=== PATIENT | female | born 1935 | race Caucasian/White ===

== ENCOUNTER 2022-02-03 11:39 | Outpatient (CLI) | payer MEDICARE, SELFPAY ==
[2022-02-03 12:13] LABS: Basophils Percent Auto 0.5 % (0.2-1.2); Eosinophils Absolute Auto 0.1 K/mm3 (0-0.3); Eosinophils Percent Auto 0.7 % (0-4.4); Hematocrit 42.8 % (37.0-47.0); Hemoglobin 13.3 g/dL (12.0-15.0); Immature Granulocyte Absolute 0.02 K/mm3 (0.00-0.031); Immature Granulocyte Percent A 0.2 % (0-0.5); Immature Platelet Fraction Pct 4.3 % (0.9-11.2); Lymphocytes Absolute Auto 1.59 K/mm3 (0.9-3.2); Lymphocytes Percent Auto 19.3 % (18.3-44.2); Mean Corpuscular HGB Conc 31.1 g/dl (32-36); Mean Corpuscular Hemoglobin 30.9 pg (26-34); Mean Corpuscular Volume 99.5 fl (80-100); Monocytes Absolute Auto 0.8 K/mm3 (0.1-0.6); Monocytes Percent Auto 9.6 % (2.6-8.5); Neutrophils Absolute Auto 5.8 K/mm3 (1.3-6.7); Neutrophils Percent Auto 69.7 % (45.5-73.1); Platelet Count Result 230 k/mm3 (150-375); Red Cell Distribution Width 14.6 % (11.5-14.5); White Blood Count 8.3 K/mm3 (4.5-10.0)
[2022-02-03 12:20] LABS: Alanine Aminotransferase 14 U/L (4-35); Albumin Level 4.3 g/dL (3.5-5.1); Alkaline Phosphatase 61 U/L (38-126); Anion Gap 8 mmol/L (8-16); Aspartate Amino Transferase 26 U/L (14-36); Bilirubin,Total 0.6 mg/dL (0.2-1.3); Blood Urea Nitrogen 25 mg/dL (7-17); Calcium 8.8 mg/dL (8.4-10.2); Carbon Dioxide 23 mmol/L (22-30); Chloride 108 mmol/L (98-107); Estimated Glomerular Filt Rate 59; Glucose 98 mg/dL (65-110); Potassium 4.3 mmol/L (3.4-5.0); Sodium 139 mmol/L (137-145)
== END 2022-02-03 11:40 | disposition home or self-care (01) ==
PROVIDERS: Visit Provider Family Medicine
DX: E53.8 Deficiency of other specified B group vitamins (principal); F41.1 Generalized anxiety disorder
CPT/HCPCS: 36415; 80053; 82607; 85025; 85055

== ENCOUNTER 2022-09-19 14:32 | Inpatient (IN) | payer MEDICARE, SELFPAY ==
[2022-09-19] VITALS (7 sets, daily range): BP systolic 109–148; BP diastolic 60–91; PULSE 94–157; RESP 14–20; TEMP 36.3–36.6; O2SAT 97–100; BMI 40.8
--- NOTE | ~2022-09-19 | XR_ITS ---
EXAMINATION: XR chest 1V portable Exam Date/Time: 09/19/2022 15:05 POWER WASHER HISTORY: cough, AMS, dementia, GROUND LEVEL FALL Comparison: 03/09/2019. RESULT: Lines, tubes, and devices: Left chest pacer with intact lead. Lower thoracic vertebroplasty cement. Surgical clips over the bilateral axilla. Lungs and pleura: Ill-defined patchy and streaky bibasilar opacities. Cardiomediastinal silhouette: Stable. Other: No acute osseous or upper abdominal finding. IMPRESSION: Bibasilar opacities, presumably representing atelectasis. Infection and/or aspiration are not exclude d. Reviewed, dictated and finalized at location K. R WASHER IMPRESSION: Bibasilar opacities, presumably representing atelectasis. Infection and/or aspi ration are not excluded.
--- NOTE | ~2022-09-19 | CT_ITS ---
EXAMINATION: CTA chest PE protocol DATE: 09/19/2022 18:17 INDICATION: covid+, tachycardia TECHNIQUE: Computed tomography angiography (CTA) of the chest was performed with 200 mL Omnipaque-350 intravenous contrast timed to evaluate the pulmonary arteries. Coronal maximum intensity projection 3D-reconstructions were created by the technologist. The dose-length product (DLP) was 877.17 mGy-cm. Automated exposure control and iterative reconstruction technique were employed. COMPARISON: X-ray chest, same date. CT C-spine, same date. FINDINGS: Lung parenchyma and airways: Senescent changes. Dependent atelectasis.. Pleura: Unremarkable. Thoracic inlet, axillae and chest wall: 2.3 cm left thyroid nodule. Left chest pacer, with intact thelma d Thoracic aorta: Mild ectasia and arch calcification. Mediastinum: Small hiatal hernia. Heart and pericardium: Normal. Coronary artery calcifications: Moderate. Upper abdomen: Multiple bilateral renal cysts and lesions that are too small to characterize. Bones: No acute osseous finding. Pulmonary arteries: Study quality: Degraded by arm positioning in one series of imaging and respirato ry motion in all series, such that subsegmental and non-occlusive segmental emboli could be missed. N o pulmonary emboli detected. IMPRESSION: Limited examination as detailed above. No CT evidence of central or segmental acute pulmonary embolus . Reviewed, dictated and finalized at location K. ONHOLE MAKER HAND IMPRESSION: Limited examination as detailed above. No CT evidence of central or segmental a cute pulmonary embolus.
--- NOTE | ~2022-09-19 | XR_ITS ---
MODIFIED ESOPHAGRAM HISTORY: Aspiration TECHNIQUE: Modified barium esophagram was performed by speech pathologist under radiologist fluorosco pic guidance. This was recorded on tape. The exam was reviewed on 09/20/2022 13:33 SAUSAGE MACHINE OPERATOR. The DAP for this procedure was 1.6 Gycm2. Fluoroscopy time is 2.4 minutes. FINDINGS: Lateral projection of the cervical spine demonstrates prominent ventral osteophytes at C5 -6 and C6-7.. There is reduced lingual movement. During pharyngeal stage of swallowing there is reduc ed laryngeal elevation, laryngeal adduction, tongue base retraction and pharyngeal squeeze. There is vallecular residue, pyriform sinus residue. There is laryngeal penetration with aspiration.. IMPRESSION: 1: Laryngeal penetration with aspiration. 2: Please refer to speech pathologist report for additional detail. Reviewed, dictated and finalized at location A. AGE MACHINE OPERATOR
--- NOTE | ~2022-09-19 | CT_ITS ---
EXAMINATION: CT cervical spine wo con DATE: 09/19/2022 15:41 INDICATION: fall, HI, dementia TECHNIQUE: Computed tomography (CT) of the cervical spine was performed without intravenous contrast. Automated exposure control and iterative reconstruction technique were employed. The dose-length pro duct was 171.79 mGy-cm. COMPARISON: None. FINDINGS: Vertebral Body Alignment: Intact. . Craniocervical and atlantoaxial alignment: Moderate degenerative change with pannus. Alignment intact . Osseous structures/fracture: No evidence of a lytic or blastic process in the visualized spine. No e vidence of acute fracture. . Cervical soft tissues: The paraspinal soft tissues planes are maintained. Biapical pleural scarring i n the lungs. 2.3 cm left thyroid gland nodule. Degenerative changes: Multilevel severe degenerative disc disease. Multilevel severe facet arthropath y. Multilevel severe bilateral neural foraminal narrowing. No severe central canal narrowing. IMPRESSION: No acute fracture or traumatic malalignment in the cervical spine. 2.3 cm left thyroid gland nodule, consider outpatient, nonemergent thyroid ultrasound for further evaluation. Reviewed, dictated and finalized at location K. BOSS IMPRESSION: No acute fracture or traumatic malalignment in the cervical spine. 2.3 cm left thyroid gland nodule, consider outpatient, nonemergent thyroid ultrasound for f urther evaluation.
--- NOTE | ~2022-09-19 | CT_ITS ---
EXAMINATION: CT brain wo con DATE: 09/19/2022 15:41 INDICATION: fall, HI, dementia . TECHNIQUE: Computed tomography (CT) of the head was performed without intravenous contrast. The mA wa s adjusted according to patient size. Iterative reconstruction technique was employed. The dose-lengt h product was 1059.33 mGy-cm. COMPARISON: None FINDINGS: Motion limited examination. No acute intracranial hemorrhage or extra-axial fluid collection. No hydrocephalus, mass, or herniation. No acute ischemic infarct. Unremarkable dural venous sinus attenuation. No acute osseous abnormality. Nodular mucosal thickening in the bilateral maxillary sinuses aerated spaces are clear. Moderate atrophy and chronic white matter change. Atherosclerotic intracranial calcification. Bilater al lens replacements. IMPRESSION: Motion limited examination. Within that constraint, no definite acute intracranial process. Reviewed, dictated and finalized at location K. NICAL ACCOUNT REPRESENTATIVE IMPRESSION: Motion limited examination. Within that constraint, no definite acute intracran ial process.
--- NOTE | 2022-09-19 14:51 | ECG_ITS ---
Measurements Intervals [place] Rate: 129 P: 34 MN: 193 QRS: -11 QRSD: 86 T: 68 QT: 367 QTc: 539 Interpretive Statements SINUS TACHYCARDIA ST DEVIATION AND MODERATE T-WAVE ABNORMALITY, CONSIDER LATERAL ISCHEMIA [-0.1+ mV T WAVE IN I/aVL/V5/V6] COMPARED TO ECG 03/09/2019 19:03:16 SINUS TACHYCARDIA NOW PRESENT Electronically Signed On 09-20-2022 11:11:25 LUNCHROOM MONITOR by Luis Antonio Vick M.D.
--- NOTE | 2022-09-19 15:04 | ED.FALL ---
HPI - Fall General Chief Complaint: Fall Stated Complaint: fell, confused (has history of dementia) Time Seen by Provider: 09/19/22 14:45 Source: patient and family Mode of arrival: ambulatory Limitations: no limitations History of Present Illness HPI Narrative: Patient is an 87 y/o female who presents to the ED with c/o altered mental status. Patient and son at bedside assisted in providing information. Son reports patient has a history of dementia and is alert and oriented X 1-2 at baseline. He states her confusion has been worsening over the last 1 week. Today, he heard a thud from another room and found the patient on the ground, appearing to have fallen. Patient denies any areas of pain. She is unable to tell me how the fall occurred. Patient is not on any blood thinners. Related Data Allergies Allergy/AdvReac Type Severity Reaction Status Date / Time No Known Allergies Allergy Unverified 03/09/19 19:08 Review of Systems Review of Systems: ROS unobtainable: Yes unobtainable due to mental status PMFSH Past Medical History Medical History (Updated 09/19/22 @ 20:07 by Chante Sethi PA-C) Anxiety Dementia Depression HLD (hyperlipidemia) HTN (hypertension) Pacemaker Surgical History Surgical History (Updated 09/19/22 @ 15:08 by Chante Sethi PA-C) No pertinent past surgical history Social History Social History (Updated 09/19/22 @ 15:08 by Chante Sethi PA-C) Smoking status: Never smoker Living arrangements: with family Exam Narrative: GENERAL: Elderly, well-nourished, non-toxic, in no acute distress. HEAD: Normocephalic, atraumatic. NECK: Supple. No adenopathy, no masses. RESPIRATORY: Airway patent, respirations nonlabored. Clear to auscultation bilaterally, no rales, rhonchi, wheezing. Occasional cough on exam. CARDIOVASCULAR: Tachycardic with regular rhythm without murmurs, rubs, or gallops. Radial pulses 2+ and equal bilaterally. ABDOMINAL: Soft, nontender, nondistended, no hepatosplenomegaly. Normoactive BS. MUSCULOSKELETAL: Moves all extremities. Strength/ROM intact without gross deformities. SKIN: Warm, dry, normal color. No rashes. NEURO: A&O X1, unsure of location/year. Confused at some questions. Follows some commands. Speech clear. Cranial nerves II-XII grossly intact. No ataxic movements. No focal deficits. PSYCHIATRIC: Appropriate mood and affect. Normal interaction. Course Vital Signs Vital signs: Vital Signs Temperature 97.3 F L 09/19/22 14:36 Pulse Rate 94 09/19/22 14:36 Respiratory Rate 14 09/19/22 14:36 Blood Pressure 148/91 H 09/19/22 14:36 Pulse Oximetry 100 09/19/22 14:36 Temperature 97.3 F L 09/19/22 14:36 Pulse Rate 147 H 09/19/22 18:47 Respiratory Rate 15 09/19/22 18:47 Blood Pressure 133/89 09/19/22 18:47 Pulse Oximetry 98 09/19/22 18:47 MDM - Fall MDM Narrative Medical decision making narrative: Patient presented to ED with report of a fall today, increased confusion over the last week for patient's son. Patient alert and oriented to self currently. Heart rate initially documented as 94 upon arrival, though upon my evaluation, patient's heart rate ranging from 110-140s. Patient unable to tell me how fall occurred, denying any acute complaints. CT head and neck negative. CBC without leukocytosis or anemia. CMP with mild hyponatremia, stable kidney function. Lactic acid within normal limits. Blood cultures obtained. COVID testing positive in the ED. EKG showing sinus tachycardia, nonspecific ST changes. Initial troponin 0.022. Chest x-ray showing nonspecific bibasilar opacities. Lungs clear on exam. Patient persistently tachycardic in the 140s throughout ED stay despite 2L fluid resuscitation. D-dimer was found to be elevated at 2.68. CTA of chest obtained and somewhat limited by motion, no central or large PEs seen. Due to persistent tachycardia in the setting of COVID-19 and worsening dementia,
[2022-09-19 15:06] LABS: Basophils Percent Auto 0.2 % (0.2-1.2); Hematocrit 41.2 % (37.0-47.0); Immature Granulocyte Absolute 0.03 K/mm3 (0.00-0.031); Immature Granulocyte Percent A 0.3 % (0-0.5); Lymphocytes Absolute Auto 1.12 K/mm3 (0.9-3.2); Mean Corpuscular HGB Conc 31.6 g/dl (32-36); Mean Corpuscular Volume 98.1 fl (80-100); Mean Platelet Volume 10.6 fl (7.4-10.4); Monocytes Percent Auto 10.5 % (2.6-8.5); Neutrophils Absolute Auto 7.2 K/mm3 (1.3-6.7); Platelet Count Result 183 k/mm3 (150-375); White Blood Count 9.4 K/mm3 (4.5-10.0)
[2022-09-19 15:19] LABS: INR 1.2; Prothrombin Time 14.8 Seconds (11.1-14.7)
[2022-09-19 15:20] LABS: Partial Thromboplastin Time 31.6 SECONDS (22.3-36.8)
[2022-09-19 15:22] LABS: Lactic Acid Reflex 1.2 mmol/L (0.7-2.0)
[2022-09-19] MEDS: SODIUM CHLORIDE 0.9% IV 1,000 ML 999 ML IV CONT ×2 (15:34→18:48)
[2022-09-19 15:44] LABS: Influenza A QL RT-PCR Negative (Negative); Influenza B QL RT-PCR Negative (Negative); SARS-CoV-2 RNA PCR Positive
[2022-09-19 15:58] LABS: Alanine Aminotransferase 16 U/L (6-35); Albumin Level 4.2 g/dL (3.5-5.1); Alkaline Phosphatase 57 U/L (38-126); Anion Gap 7 mmol/L (8-16); Aspartate Amino Transferase 28 U/L (14-36); Bilirubin,Total 0.5 mg/dL (0.2-1.3); Blood Urea Nitrogen 24 mg/dL (7-17); Calcium 8.6 mg/dL (8.4-10.2); Carbon Dioxide 26 mmol/L (22-30); Chloride 100 mmol/L (98-107); Estimated CRCL calculation 38 ml/min; Estimated Glomerular Filt Rate > 60; Glucose 105 mg/dL (65-110); Potassium 3.9 mmol/L (3.4-5.0); Sodium 133 mmol/L (137-145)
[2022-09-19 16:00] LABS: Troponin I 0.022 ng/mL (0.000-0.034)
--- NOTE | 2022-09-19 16:30 | PC.NURSE ---
Attempted to straight cath patient at this time without success due to patient condition and anatomy. U-Bag placed to obtain urine sample at this time.
[2022-09-19 17:36] LABS: D Dimer 2.68 ug/mL (<0.48)
[2022-09-19 20:11] LABS: Appearance Urine Clear (Clear); Bilirubin Urine Negative (Negative); Blood Urine 2+ (Negative); Color Urine Yellow (Yellow); Glucose Urine UA Negative (Negative); Ketones Urine Negative (Negative); Leukocyte Esterase Ur Negative LEU/UL (Negative); Nitrate Urine Negative (Negative); Protein Urine Negative (Negative); Specific Grav Ur <= 1.005 (1.001-1.035); Urobilinogen Urine 0.2 mg/dL (<2.0)
--- NOTE | 2022-09-19 20:14 | PM.IMHP ---
H&P: HPI History of Present Illness Date/Time: 09/19/22 20:14 Chief Complaint: FALL Narrative: This is an 87-year-old female past medical history significant for anxiety, dementia, depression, dyslipidemia, hypertension, status post remote history of pacemaker placement, bilateral mastectomy. patient was brought to the emergency room due to fall son was at home and heard the known found her lying on the floor however patient had no loss of consciousness. Patient is unable to give me much history due to circumstantiality. preliminary workup was significant for patient tested positive for COVID A chest x-ray showed infiltrate. Patient is been admitted for further evaluation management and treatment. Review of Systems Review of Systems: ROS unobtainable: Yes unobtainable due to medical condition ( Dementia) PMFSH Past Medical History Medical History (Updated 09/20/22 @ 02:50 by Natalie Juárez MD) Anxiety Dementia Depression HLD (hyperlipidemia) HTN (hypertension) Pacemaker Surgical History Surgical History (Updated 09/19/22 @ 15:08 by Chante Sethi PA-C) No pertinent past surgical history Social History Social History (Updated 09/19/22 @ 15:08 by Chante Sethi PA-C) Smoking status: Never smoker Alcohol intake: never Substance use: never Substance use type: does not use Living arrangements: with family Spiritual care concerns: No Meds Home Medications and Allergies Home Medications Medication Instructions Recorded Confirmed Type alprazolam 0.5 mg tablet 0.5 mg PO TID PRN Anxiety 09/19/22 09/19/22 History aspirin 81 mg tablet,delayed 81 mg PO DAILY 09/19/22 09/19/22 History release buspirone 15 mg tablet 15 mg PO DAILY 09/19/22 09/19/22 History lovastatin 20 mg tablet 20 mg PO HS 09/19/22 09/19/22 History sertraline 50 mg tablet 50 mg PO DAILY 09/19/22 09/19/22 History tizanidine 2 mg tablet 2 mg PO HS 09/19/22 09/19/22 History Allergies Allergy/AdvReac Type Severity Reaction Status Date / Time No Known Allergies Allergy Unverified 09/19/22 21:02 Vital Signs Vital Signs - 24 hr 09/19/22 14:36 09/19/22 16:23 09/19/22 18:47 Temperature 97.3 F L Pulse Rate 94 141 H 147 H Respiratory Rate 14 20 15 Blood Pressure 148/91 H 140/84 133/89 Pulse Oximetry 100 98 98 Exam Narrative: patient is laying in bed Const: General: comfortable, no acute distress, well developed, alert, awake and average body habitus Nutritional Appearance: average body habitus Orientation/consciousness: oriented to person and oriented to place HENMT: Head: normal to inspection, normocephalic and atraumatic Ears: hearing grossly normal bilaterally Face/Nose/Sinus: normal facial exam Face and sinus: normal facial exam Eyes: General: appearance normal, both eyes and all related structures Pupils: Equal, round and reactive pupils present EOM: EOMs intact bilaterally Neck: Neck: full ROM, no lymphadenopathy and no JVD Thyroid: thyroid normal Lymphatic: no lymphadenopathy noted Chest: Breast/axilla inspection: abnormal inspection of the breast ( bilateral mastectomy) Resp: Effort & Inspection: normal respiratory effort and able to speak in complete sentences Auscultation: clear to auscultation bilaterally Cardio: Jugular venous distension: no JVD Rate: regular rate Rhythm: regular rhythm Heart sounds: S1 normal heart sound present and S2 normal heart sound present GI: GI Palp: Yes Soft to palpation and Yes No hepatosplenomegaly present : General: Yes deferred Skin: Rashes: no rashes Wounds: no wounds Neuro: General: oriented to person, oriented to place and CN's II-XI intact bilaterally Cranial nerves: Yes CN's II-XII intact bilaterally and Yes Equal, round and reactive pupils present Cognition (Neuro): normal cognition Speech: normal speech Gait exam (Neuro): Normal gait present Motor exam (neuro): 5/5 motor strength present throughout Extrem: General
[2022-09-19 20:15] LABS: Mucus Urine Rare /lpf; Squamous Epithelial Cell Urine Occasional /hpf (Few); WBC Urine 0-3 /hpf
[2022-09-19 20:19] LABS: Add Urine Microscopic? YES
--- NOTE | 2022-09-19 20:28 | PC.NURSE ---
Patient assisted to bedside commode. Patient pacemaker interrogated.
--- NOTE | 2022-09-19 21:00 | PC.NURSE ---
called Ed for report on pt, report received from Monica
--- NOTE | 2022-09-19 22:30 | PC.NURSE ---
called to inform MD Juárez hr 140's and remains restless and anxious. Impulsive.
[2022-09-19] MEDS: HALOPERIDOL LACTATE 5 MG/ML VIAL IM (22:50)
--- NOTE | 2022-09-19 23:30 | PC.NURSE ---
hr 140-150's called MD Juárez 25 mg PO metoprolol once ordered.
[2022-09-20] VITALS (12 sets, daily range): BP systolic 108–147; BP diastolic 64–96; PULSE 86–129; RESP 18–20; TEMP 36.4–36.6; O2SAT 92–98
[2022-09-20] MEDS: METOPROLOL TARTRATE 25 MG TABLET PO ×3 (00:07→18:01)
[2022-09-20] MEDS: LOVASTATIN 20 MG TABLET PO ×2 (00:51→20:56)
[2022-09-20] MEDS: TIZANIDINE HCL 2 MG TABLET PO ×2 (00:51→20:56)
[2022-09-20] MEDS: cefTRIAXone 2 GM in SODIUM CHLORIDE 0.9% IV 100 ML 200 ML IVPB (03:31)
[2022-09-20] MEDS: ALPRAZolam (*CRX) 0.5 MG TABLET PO ×2 (06:50→20:56)
--- NOTE | 2022-09-20 08:00 | PM.IMPN ---
Progress Note: A&P Assessment and Plan (1) Lung infiltrate: Code(s): R91.8 - Other nonspecific abnormal finding of lung field Status: Acute Assessment and Plan: Chest xray Shows bibasilar opacities representing atelectasis, infection, aspiration Chest CTA showed no PE however does showed atelectasis Azithromycin and ceftriaxone has been started WBC stable at 5.9 Sputum culture ordered Blood cultures pending Could be related to COVID-19 Trend respiratory status IS and cornet therapy ordered ST ordered since possible aspiration is noted on the xray (2) PNA (pneumonia): Code(s): J18.9 - Pneumonia, unspecified organism Status: Acute Assessment and Plan: Possible related to COVID see above (3) COVID-19: Code(s): U07.1 - COVID-19 Status: Acute Assessment and Plan: Tested positive in the ED on 09/19/22 No oxygen requirements Cough is noted, add antitussives Probable acute infection IS and cornet ordered PT/OT ordered supportive care (4) Tachycardia: Code(s): R00.0 - Tachycardia, unspecified Status: Acute Assessment and Plan: Heart rate is elevated at 120-150s Metoprolol IV given x 1 Start metoprolol 25mg PO BID Telemonitor Continue to trend heart rate Consider cardiology if unable to get heart rate controlled (5) Fall: Code(s): W19.XXXA - Unspecified fall, initial encounter Status: Acute Assessment and Plan: Fall noted at home, with no loss of conscientiousness PT/OT ordered Up with assistance Fall precautions Could be related to PNA, COVID (6) Dementia: Code(s): F03.90 - Unspecified dementia, unspecified severity, without behavioral disturbance, psychotic disturbance, mood disturbance, and anxiety Status: Acute Assessment and Plan: Baseline according to the ED from the son is A&O x 1-2 Currently A&O x 1 probably at baseline not on any current treatment Appears to be on Xanax probably for support (7) HTN (hypertension): Code(s): I10 - Essential (primary) hypertension Status: Acute Assessment and Plan: Current BP is 128/85 No home medications Stable at this time Continue to trend adjust therapy as indicated (8) HLD (hyperlipidemia): Code(s): E78.5 - Hyperlipidemia, unspecified Status: Acute Assessment and Plan: Continue home lovastatin Subjective Date/time seen: 09/20/22 08:00 Interval history: 09/20/22 0800 Patient is alert oriented x1. When asked her about her pacemaker she said she got that put in which she was 21. She currently denies any chest pain or any nausea, vomiting, diarrhea or constipation. She did say she was short of breath and that she did have a pretty bad cough. Her heart rate was noted to be in 120s to 150s throughout late morning. Will give patient 1 dose of IV metoprolol and continue Trend heart rate. Metoprolol was also ordered p.o.. Continue tele monitor at this time. 09/19/22? 20:14 ?This is an 87-year-old female past medical history significant for anxiety, dementia, depression, dyslipidemia, hypertension, status post? remote history of pacemaker placement,? bilateral mastectomy. patient was brought to the emergency room due to fall son was at home and heard the known found her lying on the floor however patient had no loss of consciousness.? Patient is unable to give me much? history due to circumstantiality. preliminary workup was significant for patient tested positive for COVID A chest x-ray showed infiltrate.? Patient is been admitted for further evaluation management and treatment. Review of Systems Review of Systems: All systems reviewed & are unremarkable except as noted in HPI and below ROS unobtainable: Yes unobtainable due to medical condition ( Dementia) Exam Isael
--- NOTE | 2022-09-20 08:00 | P.PNIM_ITS ---
Progress Note: A&P Assessment and Plan (1) Lung infiltrate: Code(s): R91.8 - Other nonspecific abnormal finding of lung field Status: Acute Assessment and Plan: * Chest xray Shows bibasilar opacities representing atelectasis, infection, aspiration * Chest CTA showed no PE however does showed atelectasis * Azithromycin and ceftriaxone has been started * WBC stable at 5.9 * Sputum culture ordered * Blood cultures pending * Could be related to COVID-19 * Trend respiratory status * IS and cornet therapy ordered * ST ordered since possible aspiration is noted on the xray (2) PNA (pneumonia): Code(s): J18.9 - Pneumonia, unspecified organism Status: Acute Assessment and Plan: * Possible related to COVID * see above (3) COVID-19: Code(s): U07.1 - COVID-19 Status: Acute Assessment and Plan: * Tested positive in the ED on 09/19/22 * No oxygen requirements * Cough is noted, add antitussives * Probable acute infection * IS and cornet ordered * PT/OT ordered * supportive care (4) Tachycardia: Code(s): R00.0 - Tachycardia, unspecified Status: Acute Assessment and Plan: * Heart rate is elevated at 120-150s * Metoprolol IV given x 1 * Start metoprolol 25mg PO BID * Telemonitor * Continue to trend heart rate * Consider cardiology if unable to get heart rate controlled (5) Fall: Code(s): W19.XXXA - Unspecified fall, initial encounter Status: Acute Assessment and Plan: * Fall noted at home, with no loss of conscientiousness * PT/OT ordered * Up with assistance * Fall precautions * Could be related to PNA, COVID (6) Dementia: Code(s): F03.90 - Unspecified dementia, unspecified severity, without behavioral disturbance, psychotic disturbance, mood disturbance, and anxiety Status: Acute Assessment and Plan: * Baseline according to the ED from the son is A&O x 1-2 * Currently A&O x 1 * probably at baseline * not on any current treatment * Appears to be on Xanax probably for support (7) HTN (hypertension): Code(s): I10 - Essential (primary) hypertension Status: Acute Assessment and Plan: * Current BP is 128/85 * No home medications * Stable at this time * Continue to trend * adjust therapy as indicated (8) HLD (hyperlipidemia): Code(s): E78.5 - Hyperlipidemia, unspecified Status: Acute Assessment and Plan: * Continue home lovastatin Subjective Date/time seen: 09/20/22 08:00 Interval history: 09/20/22 0800 Patient is alert oriented x1. When asked her about her pacemaker she said she got that put in which she was 21. She currently denies any chest pain or any nausea, vomiting, diarrhea or constipation. She did say she was short of breath and that she did have a pretty bad cough. Her heart rate was noted to be in 120s to 150s throughout late morning. Will give patient 1 dose of IV metoprolol and continue Trend heart rate. Metoprolol was also ordered p.o.. Continue tele monitor at this time. 09/19/22? 20:14 ?This is an 87-year-old female past medical history significant for anxiety, dementia, depression, dyslipidemia, hypertension, status post? remote history of pacemak
[2022-09-20 08:31] LABS: Basophils Percent Auto 0.5 % (0.2-1.2); Hematocrit 36.7 % (37.0-47.0); Hemoglobin 11.4 g/dL (12.0-15.0); Immature Granulocyte Absolute 0.01 K/mm3 (0.00-0.031); Immature Granulocyte Percent A 0.2 % (0-0.5); Lymphocytes Absolute Auto 1.22 K/mm3 (0.9-3.2); Lymphocytes Percent Auto 20.7 % (18.3-44.2); Mean Corpuscular HGB Conc 31.1 g/dl (32-36); Mean Corpuscular Hemoglobin 29.8 pg (26-34); Mean Corpuscular Volume 96.1 fl (80-100); Monocytes Absolute Auto 0.8 K/mm3 (0.1-0.6); Monocytes Percent Auto 12.9 % (2.6-8.5); Neutrophils Absolute Auto 3.9 K/mm3 (1.3-6.7); Neutrophils Percent Auto 65.7 % (45.5-73.1); Platelet Count Result 160 k/mm3 (150-375); Red Blood Count 3.82 M/mm3 (4.2-5.4); Red Cell Distribution Width 14.8 % (11.5-14.5); White Blood Count 5.9 K/mm3 (4.5-10.0)
[2022-09-20 08:49] LABS: Alanine Aminotransferase 16 U/L (6-35); Albumin Level 3.6 g/dL (3.5-5.1); Alkaline Phosphatase 44 U/L (38-126); Anion Gap 6 mmol/L (8-16); Aspartate Amino Transferase 34 U/L (14-36); Bilirubin,Total 0.4 mg/dL (0.2-1.3); Blood Urea Nitrogen 13 mg/dL (7-17); Calcium 7.8 mg/dL (8.4-10.2); Carbon Dioxide 25 mmol/L (22-30); Chloride 104 mmol/L (98-107); Estimated CRCL calculation 53 ml/min; Estimated Glomerular Filt Rate > 60; Glucose 95 mg/dL (65-110); Potassium 3.4 mmol/L (3.4-5.0); Sodium 135 mmol/L (137-145)
[2022-09-20] MEDS: ASPIRIN 81 MG ENTERIC TABLET PO (09:08)
[2022-09-20] MEDS: busPIRone HCL 5 MG TABLET 15 MG PO (09:08)
[2022-09-20] MEDS: SERTRALINE HCL 50 MG TABLET PO (09:08)
[2022-09-20] MEDS: HEPARIN SODIUM 5,000 UNITS/ML VIAL 5000 UNITS SUB-Q ×2 (09:09→20:55)
--- NOTE | 2022-09-20 11:05 | PCSTNOTE ---
Orders received for bedside swallowing evaluation. Based on chart review a modified barium swallow study is appropriate to rule out aspiration for this patient. Physician contacted and order requested.
--- NOTE | 2022-09-20 13:41 | PCSTNOTE ---
Please refer to the Modified Barium Swallow Evaluation in the EMR.
[2022-09-20] MEDS: METOPROLOL TARTRATE INJ 5 MG/5 ML VIAL 2.5 MG IV PUSH (17:10)
[2022-09-20] MEDS: guaiFENesin/DEXTROMETHORPHAN 10 ML UDC 5 ML PO (20:55)
[2022-09-21] VITALS (9 sets, daily range): BP systolic 121–159; BP diastolic 70–89; PULSE 71–129; RESP 18–20; TEMP 36.2–36.6; O2SAT 90–98
[2022-09-21] MEDS: HALOPERIDOL LACTATE 5 MG/ML VIAL IM (03:37)
[2022-09-21] MEDS: LORazepam INJ (*CRX) 2 MG/ML VIAL 1 MG IM (04:30)
--- NOTE | 2022-09-21 05:15 | PC.NURSE ---
Pt alert to self this shift. Uncooperative with all care. Multiple attempts to get out of bed. On fall precautions with bed alarm. Takes off tele.Gave xanax 0.5mg po 2100 Pt calmer with periods of sleep in bed. Continues to Removed IV site. Yelling, hitting, kicking and attempting to bite staff. Refused po meds. Notified hospitalist irrigation tax assessor collector of pt behavior. Gave haldol 5mg IM . 033 attempted to restrart IV pt continued to resist care. Received order for ativan IM 1mg. Gave to pt at 0415 Attempted to restart IV site again as of 509- pt still resists care. Pt due for 2 antibiotics scheduled for Q24 hours at 0300. Continue to monitor pt closely.
--- NOTE | 2022-09-21 06:04 | PC.NURSE ---
Attempted to start IV again - assist of 3 people. Pt combative, 3 sticks unable to get site. Notified Dr. Juárez of inability to start IV and give abx x2. Phlebotomy obtained labs with 4 assists . Tele for this shift ST ,then was SR with sedation. Remains confused, alert to self only.
[2022-09-21 06:55] LABS: Basophils Percent Auto 0.3 % (0.2-1.2); Eosinophils Absolute Auto 0.1 K/mm3 (0-0.3); Hematocrit 41.1 % (37.0-47.0); Hemoglobin 12.7 g/dL (12.0-15.0); Immature Granulocyte Absolute 0.01 K/mm3 (0.00-0.031); Immature Granulocyte Percent A 0.2 % (0-0.5); Lymphocytes Absolute Auto 1.83 K/mm3 (0.9-3.2); Lymphocytes Percent Auto 31.9 % (18.3-44.2); Mean Corpuscular HGB Conc 30.9 g/dl (32-36); Mean Corpuscular Hemoglobin 30.9 pg (26-34); Mean Platelet Volume 11.8 fl (7.4-10.4); Monocytes Absolute Auto 0.7 K/mm3 (0.1-0.6); Monocytes Percent Auto 12.7 % (2.6-8.5); Neutrophils Absolute Auto 3.1 K/mm3 (1.3-6.7); Neutrophils Percent Auto 53.9 % (45.5-73.1); Platelet Count Result 171 k/mm3 (150-375); Red Blood Count 4.11 M/mm3 (4.2-5.4); Red Cell Distribution Width 14.5 % (11.5-14.5); White Blood Count 5.7 K/mm3 (4.5-10.0)
[2022-09-21 07:47] LABS: Alanine Aminotransferase 18 U/L (6-35); Albumin Level 3.3 g/dL (3.5-5.1); Alkaline Phosphatase 39 U/L (38-126); Anion Gap 7 mmol/L (8-16); Aspartate Amino Transferase 36 U/L (14-36); Bilirubin,Total 0.4 mg/dL (0.2-1.3); Blood Urea Nitrogen 18 mg/dL (7-17); Calcium 8.2 mg/dL (8.4-10.2); Carbon Dioxide 25 mmol/L (22-30); Chloride 104 mmol/L (98-107); Estimated CRCL calculation 53 ml/min; Estimated Glomerular Filt Rate > 60; Glucose 89 mg/dL (65-110); Potassium 3.9 mmol/L (3.4-5.0); Sodium 136 mmol/L (137-145)
[2022-09-21] MEDS: busPIRone HCL 5 MG TABLET 15 MG PO (08:51)
[2022-09-21] MEDS: METOPROLOL TARTRATE 25 MG TABLET PO ×2 (08:51→17:03)
[2022-09-21] MEDS: ASPIRIN 81 MG ENTERIC TABLET PO (08:51)
[2022-09-21] MEDS: HEPARIN SODIUM 5,000 UNITS/ML VIAL 5000 UNITS SUB-Q ×2 (08:52→20:15)
[2022-09-21] MEDS: SERTRALINE HCL 50 MG TABLET PO (08:52)
--- NOTE | 2022-09-21 09:00 | P.PNIM_ITS ---
Progress Note: A&P Assessment and Plan (1) Lung infiltrate: Code(s): R91.8 - Other nonspecific abnormal finding of lung field Status: Acute Assessment and Plan: * Chest xray Shows bibasilar opacities representing atelectasis, infection, aspiration * Chest CTA showed no PE however does showed atelectasis * Azithromycin and ceftriaxone continued * WBC stable at 5.2 * Sputum culture ordered still in collected * Blood cultures no growth today * Could be related to COVID-19 * Trend respiratory status * IS and cornet therapy ordered * ST ordered since possible aspiration is noted on the xray (2) PNA (pneumonia): Code(s): J18.9 - Pneumonia, unspecified organism Status: Acute Assessment and Plan: * Possible related to COVID * see above (3) COVID-19: Code(s): U07.1 - COVID-19 Status: Acute Assessment and Plan: * Tested positive in the ED on 09/19/22 * No oxygen requirements * Cough is noted, add antitussives * Probable acute infection * IS and cornet ordered * PT/OT ordered * supportive care (4) Tachycardia: Code(s): R00.0 - Tachycardia, unspecified Status: Acute Assessment and Plan: Heart rate noted to be elevated at 120-150s at time of admission * Heart rate better controlled in the 80s today * Increase metoprolol 25mg PO TID * Telemonitor is stable will discontinue at this time * Continue to trend heart rate * Consider cardiology if unable to get heart rate controlled (5) Fall: Code(s): W19.XXXA - Unspecified fall, initial encounter Status: Acute Assessment and Plan: * Fall noted at home, with no loss of conscientiousness * PT/OT ordered * Up with assistance * Fall precautions * Could be related to PNA, COVID (6) Dementia: Code(s): F03.90 - Unspecified dementia, unspecified severity, without behavioral disturbance, psychotic disturbance, mood disturbance, and anxiety Status: Acute Assessment and Plan: * Baseline according to the ED from the son is A&O x 1-2 * Currently A&O x 1 * probably at baseline * not on any current treatment * Appears to be on Xanax probably for support (7) HTN (hypertension): Code(s): I10 - Essential (primary) hypertension Status: Acute Assessment and Plan: * Current BP is 126/70 * No home medications * Stable at this time * Continue to trend * adjust therapy as indicated (8) HLD (hyperlipidemia): Code(s): E78.5 - Hyperlipidemia, unspecified Status: Acute Assessment and Plan: * Continue home lovastatin Time Spent With Patient Time with patient: Greater than 35 minutes Subjective Date/time seen: 09/21/22899 Interval history: 09/21/22899 Patient is a bit less responsive today. Patient was evidently given a dose of Haldol and Ativan overnight for what I assume would be sun downers. She did open her eyes and did respond to my voice however she did not respond to my que stions. She appears comfortable. Was unable to get a review of systems due to patient's mental status. It was noted that her rate did get into the 110s overnight however does fall very quickly, it also correlates to the time she got the Ativan and Haldol, probably related to a stre
--- NOTE | 2022-09-21 09:00 | PM.IMPN ---
Progress Note: A&P Assessment and Plan (1) Lung infiltrate: Code(s): R91.8 - Other nonspecific abnormal finding of lung field Status: Acute Assessment and Plan: Chest xray Shows bibasilar opacities representing atelectasis, infection, aspiration Chest CTA showed no PE however does showed atelectasis Azithromycin and ceftriaxone continued WBC stable at 5.2 Sputum culture ordered still in collected Blood cultures no growth today Could be related to COVID-19 Trend respiratory status IS and cornet therapy ordered ST ordered since possible aspiration is noted on the xray (2) PNA (pneumonia): Code(s): J18.9 - Pneumonia, unspecified organism Status: Acute Assessment and Plan: Possible related to COVID see above (3) COVID-19: Code(s): U07.1 - COVID-19 Status: Acute Assessment and Plan: Tested positive in the ED on 09/19/22 No oxygen requirements Cough is noted, add antitussives Probable acute infection IS and cornet ordered PT/OT ordered supportive care (4) Tachycardia: Code(s): R00.0 - Tachycardia, unspecified Status: Acute Assessment and Plan: Heart rate noted to be elevated at 120-150s at time of admission Heart rate better controlled in the 80s today Increase metoprolol 25mg PO TID Telemonitor is stable will discontinue at this time Continue to trend heart rate Consider cardiology if unable to get heart rate controlled (5) Fall: Code(s): W19.XXXA - Unspecified fall, initial encounter Status: Acute Assessment and Plan: Fall noted at home, with no loss of conscientiousness PT/OT ordered Up with assistance Fall precautions Could be related to PNA, COVID (6) Dementia: Code(s): F03.90 - Unspecified dementia, unspecified severity, without behavioral disturbance, psychotic disturbance, mood disturbance, and anxiety Status: Acute Assessment and Plan: Baseline according to the ED from the son is A&O x 1-2 Currently A&O x 1 probably at baseline not on any current treatment Appears to be on Xanax probably for support (7) HTN (hypertension): Code(s): I10 - Essential (primary) hypertension Status: Acute Assessment and Plan: Current BP is 126/70 No home medications Stable at this time Continue to trend adjust therapy as indicated (8) HLD (hyperlipidemia): Code(s): E78.5 - Hyperlipidemia, unspecified Status: Acute Assessment and Plan: Continue home lovastatin Time Spent With Patient Time with patient: Greater than 35 minutes Subjective Date/time seen: 09/21/22 09 Interval history: 09/21/22899 Patient is a bit less responsive today. Patient was evidently given a dose of Haldol and Ativan overnight for what I assume would be sun downers. She did open her eyes and did respond to my voice however she did not respond to my questions. She appears comfortable. Was unable to get a review of systems due to patient's mental status. It was noted that her rate did get into the 110s overnight however does fall very quickly, it also correlates to the time she got the Ativan and Haldol, probably related to a stress response or anxiety. 09/20/22 0800 Patient is alert oriented x1. When asked her about her pacemaker she said she got that put in which she was 20. She currently denies any chest pain or any nausea, vomiting, diarrhea or constipation. She did say she was short of breath and that she did have a pretty bad cough. Her heart rate was noted to be in 120s to 150s throughout late morning. Will give patient 1 dose of IV metoprolol and continue Trend heart rate. Metoprolol was also ordered p.o.. Continue tele monitor at this time. 09/19/22? 20:14 ?This is an 87-year-old female past medical history significant for anxiety,
--- NOTE | 2022-09-21 10:44 | PCSTNOTE ---
Attempted ST therapy session and handouts for exercises provided. Tequila was sleepy and unable to attempt any exercises for swallow today. Nsg reported pt did not sleep well so she was given medication which is causing the drowsy state now. ST will attempt therapy again at another time when pt more alert.
--- NOTE | 2022-09-21 13:41 | PC.NURSE ---
Two unsuccessful attempts made to initiate peripheral IV access. Vascular manager access notified.
[2022-09-21] MEDS: cefTRIAXone 2 GM in SODIUM CHLORIDE 0.9% IV 100 ML 200 ML IVPB (16:19)
[2022-09-21] MEDS: guaiFENesin/DEXTROMETHORPHAN 10 ML UDC 5 ML PO (20:14)
[2022-09-21] MEDS: ALPRAZolam (*CRX) 0.5 MG TABLET PO (20:15)
[2022-09-21] MEDS: TIZANIDINE HCL 2 MG TABLET PO (20:15)
[2022-09-21] MEDS: LOVASTATIN 20 MG TABLET PO (20:15)
[2022-09-22] VITALS (8 sets, daily range): BP systolic 130–160; BP diastolic 60–83; PULSE 62–122; RESP 16–18; TEMP 36.3–36.6; O2SAT 98
--- NOTE | 2022-09-22 01:44 | PC.NURSE ---
Pt confused alert only to name. Received up in chair. Several attempts to get out of the chair. Xanax given. Began to fall asleep, put to bed. Fall/safety protocols. Getting out x2 when needed to void Up to BSC x1 assist- unsteady. Woke pt up at 0100 for scheduled metoprolol, pt refused to take med. attempted to give med in applesauce- refused. Pt told this nurse to go away and stop waking people up. Continue to monitor frequently.
[2022-09-22 06:30] LABS: Basophils Percent Auto 0.3 % (0.2-1.2); Eosinophils Absolute Auto 0.1 K/mm3 (0-0.3); Eosinophils Percent Auto 1.6 % (0-4.4); Hematocrit 39.5 % (37.0-47.0); Hemoglobin 12.5 g/dL (12.0-15.0); Immature Granulocyte Absolute 0.01 K/mm3 (0.00-0.031); Immature Granulocyte Percent A 0.2 % (0-0.5); Lymphocytes Absolute Auto 2.64 K/mm3 (0.9-3.2); Lymphocytes Percent Auto 41.3 % (18.3-44.2); Mean Corpuscular HGB Conc 31.6 g/dl (32-36); Mean Corpuscular Hemoglobin 30.6 pg (26-34); Mean Corpuscular Volume 96.6 fl (80-100); Mean Platelet Volume 10.9 fl (7.4-10.4); Monocytes Absolute Auto 0.7 K/mm3 (0.1-0.6); Monocytes Percent Auto 11.1 % (2.6-8.5); Neutrophils Absolute Auto 2.9 K/mm3 (1.3-6.7); Neutrophils Percent Auto 45.5 % (45.5-73.1); Platelet Count Result 186 k/mm3 (150-375); Red Blood Count 4.09 M/mm3 (4.2-5.4); Red Cell Distribution Width 14.4 % (11.5-14.5); White Blood Count 6.4 K/mm3 (4.5-10.0)
[2022-09-22 06:44] LABS: Alanine Aminotransferase 21 U/L (6-35); Albumin Level 3.7 g/dL (3.5-5.1); Alkaline Phosphatase 48 U/L (38-126); Aspartate Amino Transferase 35 U/L (14-36); Bilirubin,Total 0.4 mg/dL (0.2-1.3); Blood Urea Nitrogen 17 mg/dL (7-17); Calcium 8.6 mg/dL (8.4-10.2); Carbon Dioxide 28 mmol/L (22-30); Estimated CRCL calculation 47 ml/min; Estimated Glomerular Filt Rate > 60; Glucose 93 mg/dL (65-110); Magnesium 2.3 mg/dL (1.6-2.3)
--- NOTE | 2022-09-22 06:45 | PC.NURSE ---
Pt uncooperative with care . Repeated getting out of the chair. Alarm on chair . Assisted back to bed after pt received xanax . Pt refused to take metoprolol 0100 Pharmacist rescheduled metoprolol to 0600. This am pt swinging , yelling at electrical line mechanic ... took x5 assists to obtain blood Pt refused to take metoprolol at 0600. Found saline lock in bed. Pt refused to drink any liquids all drier unloader. Fall precautions in place Isolation for ANDREW
[2022-09-22 06:58] LABS: Anion Gap 5 mmol/L (8-16); Chloride 107 mmol/L (98-107); Potassium 4.1 mmol/L (3.4-5.0); Sodium 140 mmol/L (137-145)
[2022-09-22] MEDS: busPIRone HCL 5 MG TABLET 15 MG PO (09:35)
[2022-09-22] MEDS: SERTRALINE HCL 50 MG TABLET PO (09:36)
[2022-09-22] MEDS: ASPIRIN 81 MG ENTERIC TABLET PO (09:36)
[2022-09-22] MEDS: HEPARIN SODIUM 5,000 UNITS/ML VIAL 5000 UNITS SUB-Q ×2 (09:36→21:56)
--- NOTE | 2022-09-22 11:54 | PC.NURSE ---
Ok'd by physician's casino assistant manager to DC IV access for the time being.
[2022-09-22] MEDS: METOPROLOL TARTRATE 25 MG TABLET PO ×2 (14:47→21:56)
--- NOTE | 2022-09-22 15:12 | P.PNIM_ITS ---
Progress Note: A&P Assessment and Plan (1) Lung infiltrate: Code(s): R91.8 - Other nonspecific abnormal finding of lung field Status: Acute Assessment and Plan: Chest xray Shows bibasilar opacities representing atelectasis vs infection vs aspiration * Chest CTA showed no PE however does showed atelectasis * Transition to p.o. cefdinir NPO azithromycin * no leukocytosis. Patient remaining afebrile * Sputum culture ordered, awaiting collection * Blood cultures pending, no growth to date * supportive care. Continue incentive spirometry and Cornet valve (2) COVID-19: Code(s): U07.1 - COVID-19 Status: Acute Assessment and Plan: COVID positive on 09/19/2022 * patient has no supplemental oxygen requirement, therefore not a candidate for dexamethasone or remdesivir * continue with supportive care * continue isolation precautions (3) Tachycardia: Code(s): R00.0 - Tachycardia, unspecified Status: Acute Assessment and Plan: Heart rate noted to be elevated at 120-150s at time of admission * improved, however occasionally still elevated up to 110-120 * continue metoprolol 25mg PO TID * CTA negative for PE * check orthostatic * continue to monitor heart rate closely (4) Fall: Code(s): W19.XXXA - Unspecified fall, initial encounter Status: Acute Assessment and Plan: patient suffered a fall at home. No loss of consciousness. possibly secondary to acute illness * PT/OT ordered. Appreciate evaluation * implement fall precautions (5) Dementia: Code(s): F03.90 - Unspecified dementia, unspecified severity, without behavioral disturbance, psychotic disturbance, mood disturbance, and anxiety Status: Acute Assessment and Plan: Baseline according to the ED from the son is A&O x 1-2 * Currently A&O x2 * not on any current treatment (6) Dysphagia: Code(s): R13.10 - Dysphagia, unspecified Status: Acute Assessment and Plan: participated in speech therapy * recommendations for mildly thickened liquid diet given concerns for laryngeal penetration * continue to participate in speech therapy * aspiration precautions implemented Subjective Date/time seen: 09/22/22 15:12 Interval history: date of service: 09/22/2022 Tequila Johnson is an 87-year-old female with a history of dementia, hypertension, hyperlipidemia, anxiety, depression, and history of pacemaker placement who is seen in follow-up for COVID-19. patient is a poor historian secondary to dementia is not able to provide any useful history. Per nursing staff, she has removed her IV several times and now does not have IV access. Review of Systems Review of Systems: All systems reviewed & are unremarkable except as noted in HPI and below ROS unobtainable: Yes unobtainable due to medical condition ( Dementia) Exam Narrative: General: thin, chronically ill-appearing 87-year-old female, sitting up in a chair by the bedside , comfortable, NARD Neuro: awake, alert and oriented x2, speech clear, no focal neuro deficits noted, pleasantly confused HEENMT: normocephalic, atraumatic, EOMI, sclerae anicteric Respiratory: clear to auscultation bilaterally, nonlabored breathing Cardio: regular rate, regular rhythm with S1-S2 Abdomen: nondistended, normoactive bowel sounds, soft, nontender to palpation Extremities: no edema, erythema, or tenderness to palpation, DP pulses 2+ bilaterally Sk
--- NOTE | 2022-09-22 15:12 | PM.IMPN ---
Progress Note: A&P Assessment and Plan (1) Lung infiltrate: Code(s): R91.8 - Other nonspecific abnormal finding of lung field Status: Acute Assessment and Plan: Chest xray Shows bibasilar opacities representing atelectasis vs infection vs aspiration Chest CTA showed no PE however does showed atelectasis Transition to p.o. cefdinir NPO azithromycin no leukocytosis. Patient remaining afebrile Sputum culture ordered, awaiting collection Blood cultures pending, no growth to date supportive care. Continue incentive spirometry and Cornet valve (2) COVID-19: Code(s): U07.1 - COVID-19 Status: Acute Assessment and Plan: COVID positive on 09/19/2022 patient has no supplemental oxygen requirement, therefore not a candidate for dexamethasone or remdesivir continue with supportive care continue isolation precautions (3) Tachycardia: Code(s): R00.0 - Tachycardia, unspecified Status: Acute Assessment and Plan: Heart rate noted to be elevated at 120-150s at time of admission improved, however occasionally still elevated up to 110-120 continue metoprolol 25mg PO TID CTA negative for PE check orthostatic continue to monitor heart rate closely (4) Fall: Code(s): W19.XXXA - Unspecified fall, initial encounter Status: Acute Assessment and Plan: patient suffered a fall at home. No loss of consciousness. possibly secondary to acute illness PT/OT ordered. Appreciate evaluation implement fall precautions (5) Dementia: Code(s): F03.90 - Unspecified dementia, unspecified severity, without behavioral disturbance, psychotic disturbance, mood disturbance, and anxiety Status: Acute Assessment and Plan: Baseline according to the ED from the son is A&O x 1-2 Currently A&O x2 not on any current treatment (6) Dysphagia: Code(s): R13.10 - Dysphagia, unspecified Status: Acute Assessment and Plan: participated in speech therapy recommendations for mildly thickened liquid diet given concerns for laryngeal penetration continue to participate in speech therapy aspiration precautions implemented Subjective Date/time seen: 09/22/22 15:12 Interval history: date of service: 09/22/2022 Tequila Johnson is an 87-year-old female with a history of dementia, hypertension, hyperlipidemia, anxiety, depression, and history of pacemaker placement who is seen in follow-up for COVID-19. patient is a poor historian secondary to dementia is not able to provide any useful history. Per nursing staff, she has removed her IV several times and now does not have IV access. Review of Systems Review of Systems: All systems reviewed & are unremarkable except as noted in HPI and below ROS unobtainable: Yes unobtainable due to medical condition ( Dementia) Exam Narrative: General: thin, chronically ill-appearing 87-year-old female, sitting up in a chair by the bedside , comfortable, NARD Neuro: awake, alert and oriented x2, speech clear, no focal neuro deficits noted, pleasantly confused HEENMT: normocephalic, atraumatic, EOMI, sclerae anicteric Respiratory: clear to auscultation bilaterally, nonlabored breathing Cardio: regular rate, regular rhythm with S1-S2 Abdomen: nondistended, normoactive bowel sounds, soft, nontender to palpation Extremities: no edema, erythema, or tenderness to palpation, DP pulses 2+ bilaterally Skin: no rashes or lesions, warm and dry Psych: appropriate mood and affect, judgment and insight poor Objective Data Vital Signs Vital Signs: Vital Signs - 24 hr 09/21/22 17:03 09/21/22 20:10 09/22/22 02:44 Temperature 97.2 F L 97.3 F L Pulse Rate 96 129 H 120 H Respiratory Rate 20 18 Blood Pressure 159/89 H 160/78 H Pulse Oximetry 98 98 Oxygen Delivery 09/22/22 09:30 09/22/22 14:15 09/22/22 14:47 Temperature 97.7 F Pulse Rate 62 122 H Respira
[2022-09-22] MEDS: AZITHROMYCIN 250 MG TABLET 500 MG PO (16:30)
[2022-09-22] MEDS: LOVASTATIN 20 MG TABLET PO (21:56)
[2022-09-22] MEDS: TIZANIDINE HCL 2 MG TABLET PO (21:56)
[2022-09-22] MEDS: CEFDINIR 300 MG CAPSULE PO (21:57)
[2022-09-22] MEDS: ALPRAZolam (*CRX) 0.5 MG TABLET PO (22:01)
[2022-09-23 06:01] VITALS: PULSE 110
[2022-09-23] MEDS: METOPROLOL TARTRATE 25 MG TABLET PO ×2 (06:01→13:58)
[2022-09-23 06:08] LABS: Hematocrit 39.8 % (37.0-47.0); Hemoglobin 12.5 g/dL (12.0-15.0); Mean Corpuscular HGB Conc 31.4 g/dl (32-36); Mean Corpuscular Hemoglobin 30.4 pg (26-34); Mean Corpuscular Volume 96.8 fl (80-100); Mean Platelet Volume 10.7 fl (7.4-10.4); Platelet Count Result 192 k/mm3 (150-375); Red Blood Count 4.11 M/mm3 (4.2-5.4); Red Cell Distribution Width 14.1 % (11.5-14.5); White Blood Count 6.9 K/mm3 (4.5-10.0)
[2022-09-23 06:18] LABS: Anion Gap 6 mmol/L (8-16); Blood Urea Nitrogen 18 mg/dL (7-17); Calcium 8.6 mg/dL (8.4-10.2); Carbon Dioxide 28 mmol/L (22-30); Chloride 104 mmol/L (98-107); Estimated CRCL calculation 42 ml/min; Estimated Glomerular Filt Rate 59; Glucose 90 mg/dL (65-110); Potassium 4.4 mmol/L (3.4-5.0); Sodium 138 mmol/L (137-145)
[2022-09-23 06:40] VITALS: BP 138/65; PULSE 98; RESP 16; TEMP 36.5; O2SAT 98
[2022-09-23] MEDS: busPIRone HCL 5 MG TABLET 15 MG PO (08:40)
[2022-09-23] MEDS: CEFDINIR 300 MG CAPSULE PO (08:41)
[2022-09-23] MEDS: HEPARIN SODIUM 5,000 UNITS/ML VIAL 5000 UNITS SUB-Q (08:41)
[2022-09-23] MEDS: ASPIRIN 81 MG ENTERIC TABLET PO (08:41)
[2022-09-23] MEDS: SERTRALINE HCL 50 MG TABLET PO (08:41)
[2022-09-23] MEDS: AZITHROMYCIN 250 MG TABLET 500 MG PO (08:42)
--- NOTE | 2022-09-23 12:05 | P.DS_ITS ---
DS: Admitting Diagnosis Discharge Date 09/23/2022 Admitting Diagnosis COVID-19 DS: Discharge Diagnosis Discharge Diagnosis (1) Lung infiltrate: Code(s): R91.8 - Other nonspecific abnormal finding of lung field Status: Acute Assessment and Plan: Chest xray showed bibasilar opacities representing atelectasis vs infection vs aspiration * Chest CTA showed no PE however does showed atelectasis * Pt received IV Ceftriaxone and azithromycin during admission until IV access was discontinued by patient, then was transitioned to PO cefdinir and azithromycin * Pt remained afebrile, no leukocytosis. * Blood cultures negative to date * Sputum culture not able to be collected * Remained on room air and maintained adequate oxygen sats (2) COVID-19: Code(s): U07.1 - COVID-19 Status: Acute Assessment and Plan: COVID positive on 09/19/2022 * patient had no supplemental oxygen requirement, therefore not a candidate for dexamethasone or remdesivir * supportive care * isolation precautions implemented and COVID-19 precautions discussed with family (3) Tachycardia: Code(s): R00.0 - Tachycardia, unspecified Status: Acute Assessment and Plan: Heart rate noted to be elevated at 120-150s at time of admission * has been an ongoing issue reportedly per family * family informed pacemaker no longer function * started metoprolol 25 mg TID with improved rate * CTA negative for PE * Orthostatic vital signs negative * Outpatient cardiology referral provided (4) Fall: Code(s): W19.XXXA - Unspecified fall, initial encounter Status: Acute Assessment and Plan: Patient suffered a fall at home. No loss of consciousness. possibly secondary to acute illness * PT/OT ordered and home health was arranged * Fall precautions implemented (5) Dementia: Code(s): F03.90 - Unspecified dementia, unspecified severity, without behavioral disturbance, psychotic disturbance, mood disturbance, and anxiety Status: Acute Assessment and Plan: Patients baseline is A&Ox1-2 * Remained at baseline (6) Dysphagia: Code(s): R13.10 - Dysphagia, unspecified Status: Acute Assessment and Plan: participated in speech therapy during admission * recommendations for mildly thickened liquid diet given concerns for laryngeal penetration * continue to participate in speech therapy with home health * aspiration precautions discussed with family and education provided DS: Summary Hospital Course Hospital Course: date of admission: 09/19/2022 date of discharge: 09/23/2022 Tequila Johnson is an 87-year-old female with a history of dementia, hypertension, hyperlipidemia, anxiety, depression, and history of pacemaker placement? who presented to the emergency department on 09/19/2022 with complaints of increased confusion per her son worsening over the past week. On day of presentation, she had a suspected fall at home. On presentation to the ED, she was mildly tachycardic ranging from 110 to 140s, laboratory workup revealed mild hyponatremia, normal lactic acid, D-dimer elevated at 2.68, EKG showed sinus tachycardia, COVID PCR test was positive, CXR showed nonspecific bibasilar opacities, and CTA showed no evidence of pulmonary embolism. she was admitted to the hospitalist service for further evaluation management. Please see above for further details. No COVID-19 specific therapy including dexamethasone or remdesivir was indicated as patient h
--- NOTE | 2022-09-23 12:05 | PM.DS ---
DS: Admitting Diagnosis Discharge Date 09/23/2022 Admitting Diagnosis COVID-19 DS: Discharge Diagnosis Discharge Diagnosis (1) Lung infiltrate: Code(s): R91.8 - Other nonspecific abnormal finding of lung field Status: Acute Assessment and Plan: Chest xray showed bibasilar opacities representing atelectasis vs infection vs aspiration Chest CTA showed no PE however does showed atelectasis Pt received IV Ceftriaxone and azithromycin during admission until IV access was discontinued by patient, then was transitioned to PO cefdinir and azithromycin Pt remained afebrile, no leukocytosis. Blood cultures negative to date Sputum culture not able to be collected Remained on room air and maintained adequate oxygen sats (2) COVID-19: Code(s): U07.1 - COVID-19 Status: Acute Assessment and Plan: COVID positive on 09/19/2022 patient had no supplemental oxygen requirement, therefore not a candidate for dexamethasone or remdesivir supportive care isolation precautions implemented and COVID-19 precautions discussed with family (3) Tachycardia: Code(s): R00.0 - Tachycardia, unspecified Status: Acute Assessment and Plan: Heart rate noted to be elevated at 120-150s at time of admission has been an ongoing issue reportedly per family family informed pacemaker no longer function started metoprolol 25 mg TID with improved rate CTA negative for PE Orthostatic vital signs negative Outpatient cardiology referral provided (4) Fall: Code(s): W19.XXXA - Unspecified fall, initial encounter Status: Acute Assessment and Plan: Patient suffered a fall at home. No loss of consciousness. possibly secondary to acute illness PT/OT ordered and home health was arranged Fall precautions implemented (5) Dementia: Code(s): F03.90 - Unspecified dementia, unspecified severity, without behavioral disturbance, psychotic disturbance, mood disturbance, and anxiety Status: Acute Assessment and Plan: Patients baseline is A&Ox1-2 Remained at baseline (6) Dysphagia: Code(s): R13.10 - Dysphagia, unspecified Status: Acute Assessment and Plan: participated in speech therapy during admission recommendations for mildly thickened liquid diet given concerns for laryngeal penetration continue to participate in speech therapy with home health aspiration precautions discussed with family and education provided DS: Summary Hospital Course Hospital Course: date of admission: 09/19/2022 date of discharge: 09/23/2022 Tequila Johnson is an 87-year-old female with a history of dementia, hypertension, hyperlipidemia, anxiety, depression, and history of pacemaker placement? who presented to the emergency department on 09/19/2022 with complaints of increased confusion per her son worsening over the past week. On day of presentation, she had a suspected fall at home. On presentation to the ED, she was mildly tachycardic ranging from 110 to 140s, laboratory workup revealed mild hyponatremia, normal lactic acid, D-dimer elevated at 2.68, EKG showed sinus tachycardia, COVID PCR test was positive, CXR showed nonspecific bibasilar opacities, and CTA showed no evidence of pulmonary embolism. she was admitted to the hospitalist service for further evaluation management. Please see above for further details. No COVID-19 specific therapy including dexamethasone or remdesivir was indicated as patient had no oxygen requirement. Based on imaging and clinical findings, patient was treated with antibiotics for ion min bacterial pneumonia. Patient had symptomatic improvement with antibiotics and supportive care. She remained at her baseline mental status. She did have issues with ongoing tachycardia, however this did improve following initiation of metoprolol tartrate which patient will continue as an outpatient. Per the
[2022-09-23 13:58] VITALS: PULSE 89
== END 2022-09-23 15:23 | disposition home health service (06) | DRG 177 ==
LOC: ANHED 20:11 → ANH2MED 20:29
PROVIDERS: Emergency Medicine; Nurse Practitioner; Physician Assistant; Admitting Provider Internal Medicine; Emergency Provider Emergency Medicine; Visit Provider Physician Assistant
DX: U07.1 COVID-19 (principal); J15.9 Unspecified bacterial pneumonia; E87.1 Hypo-osmolality and hyponatremia; R91.8 Other nonspecific abnormal finding of lung field; R00.0 Tachycardia, unspecified; W19.XXXA Unspecified fall, initial encounter; F03.90 Unspecified dementia, unspecified severity, without behavioral disturbance, psychotic disturbance, mood disturbance, and anxiety; R13.10 Dysphagia, unspecified; E78.5 Hyperlipidemia, unspecified; I10 Essential (primary) hypertension; F41.9 Anxiety disorder, unspecified; F32.A Depression, unspecified; Z95.0 Presence of cardiac pacemaker
CPT/HCPCS: 36415; 70450; 71045; 71275; 72125; 80048; 80053; 81001; 83605; 83735; 84484; 85025; 85027; 85380; 85610; 85730; 87040; 87636; 92611; 93005; 96361; 96365; 96366; 96367; 96372; 96375; 97161; 97166; 97530; 99285; A9270; G0378; J0456; J0696; J1630; J1644; J2060; J7030; Q9967

== ENCOUNTER 2023-10-09 12:23 | Inpatient (IN) | payer MEDICARE, SELFPAY ==
[2023-10-09] VITALS (8 sets, daily range): BP systolic 125–166; BP diastolic 59–137; PULSE 104–131; RESP 16–24; TEMP 36.6–37.7; O2SAT 94–100
--- NOTE | ~2023-10-09 | XR_ITS ---
EXAMINATION: XR surgery orthopedic DATE: 10/12/2023 13:18 INDICATION: Intraoperative evaluation during left hip hemiarthroplasty TECHNIQUE: Frontal view of the left hip was obtained. COMPARISON: 10/09/2023 FINDINGS: Intraoperative image during resection of the fractured left femoral head and neck and placement of a cemented left hip hemiarthroplasty which appears in near anatomic alignment on the single image provi ded. There is a cerclage wire extending about the greater trochanter and around the inferior margin o f the lesser trochanter. No other fractures identified. There are a few small round lucencies project ing over the distal metadiaphyseal region of the left femur and could not exclude underlying lytic le sions such as in the setting of multiple myeloma with differential including other lytic metastatic d isease or spotty osteopenia. Expected lucency at the operative bed in the soft tissues overlying the proximal femur. IMPRESSION: 1. Near-anatomic alignment of the newly placed left hip hemiarthroplasty with cerclage wire fixation about the intratrochanteric femur. 2. A few indeterminate small round lucencies at the distal metadiaphyseal region of the left femur wi th differential including multiple myeloma, lytic metastatic disease or spotty osteopenia. Reviewed, dictated and finalized at location A. CIATE ART DIRECTOR IMPRESSION: 1. Near-anatomic alignment of the newly placed left hip hemiarthroplasty with c erclage wire fixation about the intratrochanteric femur. 2. A few indeterminate small round lucencies at the distal metadiaphyseal regio n of the left femur with differential including multiple myeloma, lytic metasta tic disease or spotty osteopenia.
--- NOTE | ~2023-10-09 | XR_ITS ---
XR hip LT 2V w AP pelvis DATE: 10/09/2023 13:51 INDICATION: Fall. TECHNIQUE: AP pelvis. AP and crosstable lateral views of left hip COMPARISON: None FINDINGS: Normal alignment at the pubic symphysis and sacroiliac joints. There is diffuse osteopenia. No pelvic or sacral fracture or bone destruction is evident. Left subcapital femoral neck fracture with superolateral displacement. Asymmetric patchy sclerosis is noted at the left femoral head; avascular necrosis should be considere d. There is a prominent of fecal material in the rectosigmoid area and amount of fecal material in the d escending colon as well. 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 MAN
--- NOTE | ~2023-10-09 | XR_ITS ---
XR chest 1V DATE: 10/09/2023 13:51 INDICATION: Fall. TECHNIQUE: AP chest COMPARISON: 09/2022 portable AP chest FINDINGS: Unipolar left pacemaker device with lead overlying right ventricular apex. Cardiomegaly. Th ere is aortic arch calcification, aortic unfolding. No hilar or mediastinal enlargement is detected. Bilateral hyperinflation. No pulmonary infiltrate or consolidation, pleural effusion or pulmonary vas cular congestion or pneumothorax is detected. Diffuse osteopenia. Diffuse idiopathic skeletal hyperostosis of the thoracic spine. Status post vertebroplasty at T12. Status post cholecystectomy. IMPRESSION: Cardiomegaly, aortic atherosclerosis Left single lead pacemaker device Moderate bilateral hyperinflation; no active pulmonary disease Status post cholecystectomy Status post T12 vertebral last a Osteopenia Diffuse idiopathic skeletal hyperostosis of the thoracic spine Reviewed, dictated and finalized at location A. N INSTALLER
--- NOTE | ~2023-10-09 | XR_ITS ---
EXAM: XR hip LT 2V w AP pelvis DATE: 10/16/2023 15:55 HISTORY: post-op hip pain. SURGERY DONE ON 10-12-23 . COMPARISON: 10/12/2023. FINDINGS: Left hip arthroplasty and cerclage wire in good position. The leg is held in external rota tion in the frontal views. Increased displacement of the greater trochanter. Lumbar degenerative disc disease. Degenerative change in the right hip. Osteopenia. Subcutaneous gas from recent surgery over the left proximal thigh. IMPRESSION: Left hip arthroplasty hardware remains in good position. Increased displacement of the greater trochanter. Reviewed, dictated and finalized at location K. LYST SUPERVISOR
--- NOTE | 2023-10-09 14:13 | ECG_ITS ---
Measurements Intervals [place] Rate: 115 P: 50 [place]: 223 QRS: -7 QRSD: 85 T: 64 QT: 347 QTc: 482 Interpretive Statements SINUS TACHYCARDIA LEFT ATRIAL ENLARGEMENT [-0.15mV P WAVE IN V1/V2] LEFT VENTRICULAR HYPERTROPHY AND ST-T CHANGE [VOLTAGE CRITERIA PLUS ST/T ABNORMALITY] COMPARED TO ECG 09/19/2022 14:50:31 LEFT VENTRICULAR HYPERTROPHY NOW PRESENT Electronically Signed On 10-09-2023 17:14:53 CONSTRUCTION CHECKER by Sheba Palafox M.D.
[2023-10-09 14:58] LABS: Basophils Percent Auto 0.1 % (0.2-1.2); Hematocrit 42.9 % (37.0-47.0); Hemoglobin 13.8 g/dL (12.0-15.0); Immature Granulocyte Absolute 0.07 K/mm3 (0.00-0.031); Immature Granulocyte Percent A 0.5 % (0-0.5); Lymphocytes Percent Auto 6.7 % (18.3-44.2); Mean Corpuscular HGB Conc 32.2 g/dl (32-36); Mean Corpuscular Hemoglobin 31.7 pg (26-34); Mean Corpuscular Volume 98.4 fl (80-100); Mean Platelet Volume 11.4 fl (7.4-10.4); Monocytes Absolute Auto 1.1 K/mm3 (0.1-0.6); Monocytes Percent Auto 8.2 % (2.6-8.5); Neutrophils Absolute Auto 11.3 K/mm3 (1.3-6.7); Neutrophils Percent Auto 84.5 % (45.5-73.1); Platelet Count Result 208 k/mm3 (150-375); Red Blood Count 4.36 M/mm3 (4.2-5.4); White Blood Count 13.4 K/mm3 (4.5-10.0)
[2023-10-09 15:07] LABS: Alanine Aminotransferase 21 U/L (6-35); Albumin Level 4.4 g/dL (3.5-5.1); Alkaline Phosphatase 66 U/L (38-126); Anion Gap 11 mmol/L (8-16); Aspartate Amino Transferase 35 U/L (14-36); Blood Urea Nitrogen 25 mg/dL (7-17); Calcium 9.8 mg/dL (8.4-10.2); Carbon Dioxide 24 mmol/L (22-30); Chloride 105 mmol/L (98-107); Estimated CRCL calculation 37 ml/min; Estimated Glomerular Filt Rate > 60; Glucose 96 mg/dL (65-110); Potassium 3.8 mmol/L (3.4-5.0); Sodium 140 mmol/L (137-145)
[2023-10-09 15:08] LABS: INR 1.1; Prothrombin Time 14.2 Seconds (11.1-14.7)
[2023-10-09 15:09] LABS: Partial Thromboplastin Time 27.9 SECONDS (22.3-36.8)
[2023-10-09] MEDS: MORPHINE SULFATE (*CRX) 4 MG/ML INJ IV PUSH (16:12)
--- NOTE | 2023-10-09 16:41 | ED.GENADULT ---
HPI - General Adult General Chief complaint: Fall Stated complaint: fall this am, left leg pain Time Seen by Provider: 10/09/23 14:19 History of Present Illness HPI narrative: Patient is an 88-year-old female who presents ER with concern for hip fracture. Patient got up this morning was using the bathroom when she fell. Patient's son heard it immediately went into the room. Patient in the CT. She is able to get back to her bed but pain worsened throughout the day. Patient is not on blood thinners. Related Data Home Medications Medication Instructions Recorded Confirmed aspirin 81 mg tablet,delayed 81 mg PO DAILY 09/19/22 10/09/23 release buspirone 15 mg tablet 15 mg PO DAILY 09/19/22 10/09/23 lovastatin 20 mg tablet 20 mg PO HS 09/19/22 10/09/23 sertraline 50 mg tablet 100 mg PO DAILY 09/19/22 10/09/23 tizanidine 2 mg tablet 2 mg PO HS 09/19/22 10/09/23 Allergies Allergy/AdvReac Type Severity Reaction Status Date / Time No Known Allergies Allergy Verified 10/09/23 12:39 Review of Systems Review of Systems: ROS unobtainable: Yes unobtainable due to mental status PMFSH Past Medical History Medical History (Updated 10/09/23 @ 22:16 by Livan Guzman MD) Anxiety Dementia Depression HLD (hyperlipidemia) HTN (hypertension) Pacemaker Surgical History Surgical History (Updated 09/19/22 @ 15:08 by Chante Sethi PA-C) No pertinent past surgical history Social History Social History (Updated 09/19/22 @ 15:08 by Chante Sethi PA-C) Smoking status: Never smoker Alcohol intake: never Substance use: never Substance use type: does not use Living arrangements: with family Spiritual care concerns: No Exam Narrative: GENERAL: Uncomfortable-appearing, well-nourished, and in no acute distress. HEAD: Normocephalic, atraumatic. EYES: PERRL and EOMI. ENT: Mucous membranes moist. CHEST: Clear to auscultation. No respiratory distress. HEART: Regular rate and rhythm. Normal peripheral pulses. ABDOMEN: Soft, nontender, nondistended. EXTREMITIES: shortening of left lower extremity with tenderness at the hip. Limited range of motion due to injury. Normal lower extremities and right lower extremity. SKIN: Warm, dry, no rash. NEURO: Alert and oriented x1. PSYCH: Normal mood and affect. Course Course Emergency Course: admit to hospitalist service. Orthopedic surgery consulted. Vital Signs Vital signs: Vital Signs Temperature 98.2 F 10/09/23 12:36 Pulse Rate 119 H 10/09/23 12:36 Respiratory Rate 20 10/09/23 12:36 Blood Pressure 146/70 H 10/09/23 12:36 Pulse Oximetry 96 10/09/23 12:36 Oxygen Delivery Room Air 10/09/23 12:36 Temperature 99.8 F H 10/09/23 20:08 Pulse Rate 104 H 10/09/23 20:08 Respiratory Rate 16 10/09/23 20:08 Blood Pressure 125/93 H 10/09/23 20:08 Pulse Oximetry 94 10/09/23 20:08 Oxygen Delivery Room Air 10/09/23 12:36 Medical Decision Making Vital Signs Vital Signs: Vital Signs Temperature 98.2 F 10/09/23 12:36 Pulse Rate 119 H 10/09/23 12:36 Respiratory Rate 20 10/09/23 12:36 Blood Pressure 146/70 H 10/09/23 12:36 Pulse Oximetry 96 10/09/23 12:36 Oxygen Delivery Room Air 10/09/23 12:36 Temperature 99.8 F H 10/09/23 20:08 Pulse Rate 104 H 10/09/23 20:08 Respiratory Rate 16 10/09/23 20:08 Blood Pressure 125/93 H 10/09/23 20:08 Pulse Oximetry 94 10/09/23 20:08 Oxygen Delivery Room Air 10/09/23 12:36 Lab Data 10/09/23 14:28 10/09/23 14:28 Labs: Lab Results 10/09/23 Range/Units 14:28 WBC 13.4 H (4.5-10.0) K/mm3 RBC 4.36 (4.2-5.4) M/mm3 Hgb 13.8 (12.0-15.0) g/dL Hct 42.9 (37.0-47.0) % MCV 98.4 (80-100) fl MCH 31.7 (26-34) pg MCHC 32.2 (32-36) g/dl RDW 14.0 (11.5-14.5) % Plt Count 208 (150-375) k/mm3 MPV 11.4 H (7.4-10.4) fl Immature Gran % (Auto) 0.5 (0-0.5) % Neut % (Aut
--- NOTE | 2023-10-09 17:44 | PC.NURSE ---
unsuccessful attempt at inserting rapp catheter. Son reports multiple unsuccessful attempts during pt's last hospitalization.
--- NOTE | 2023-10-09 19:05 | PM.IMHP ---
H&P: HPI History of Present Illness Date/Time: 10/09/23 20:00 Chief Complaint: Left leg pain after fall. Narrative: This is an 88-year-old female with dementia, coronary artery disease, hypertension, hyperlipidemia, depression, and history of breast cancer presented to the emergency department accompanied by family members for evaluation of left leg pain after fall. She has significant short-term memory loss and is not able to provide an accurate history and thus a majority the following is obtained via a review of her electronic medical records as well as information obtained from her family. This morning she got up to use the bathroom and son heard her fall and immediately went into the room. He helped her up to bed and at that time she complained of some pain in the left leg which has gotten progressively worse as the day has proceeded. Radiographs in the ED showed a superior laterally displaced left subcapital femoral neck fracture and she is being admitted in this setting for pain control and orthopedic consultation. At the time my evaluation she seems anxious and while she denies pain she frequently holds onto her left hip. She does not recall what happened today. She has no complaints at this time. Review of Systems Review of Systems: A review of systems was attempted but limited due to her significant short-term memory loss. At this time she denies headache, fever, chills, sweats, chest pain, shortness a breath, nausea, and vomiting. [facility] Past Medical History Medical History (Updated 10/09/23 @ 22:43 by Kathe Mock PA-C) Anxiety Breast cancer Coronary artery disease Dementia Depression Hyperlipidemia Hypertension Surgical History Surgical History (Updated 10/09/23 @ 22:37 by Kathe Mock PA-C) History of appendectomy History of bilateral mastectomy History of cholecystectomy History of hysterectomy History of permanent cardiac pacemaker placement Family History Family History (Updated 10/09/23 @ 22:37 by Kathe Mock PA-C) Other Family history unknown Social History Social History (Updated 10/09/23 @ 22:37 by Kathe Mock PA-C) Social History: Surrogate medical decision maker: Ofelia Johnson, daughter. Code status: Full code. Smoking status: Never smoker Alcohol intake: never Substance use: never Substance use type: does not use Living arrangements: with family Spiritual care concerns: No Meds Home Medications and Allergies Home Medications Medication Instructions Recorded Confirmed Type aspirin 81 mg tablet,delayed 81 mg PO DAILY 09/19/22 10/09/23 History release buspirone 15 mg tablet 15 mg PO DAILY 09/19/22 10/09/23 History lovastatin 20 mg tablet 20 mg PO HS 09/19/22 10/09/23 History sertraline 50 mg tablet 100 mg PO DAILY 09/19/22 10/09/23 History tizanidine 2 mg tablet 2 mg PO HS 09/19/22 10/09/23 History Allergies Allergy/AdvReac Type Severity Reaction Status Date / Time No Known Allergies Allergy Verified 10/09/23 12:39 Vital Signs Vital Signs - 24 hr 10/09/23 12:36 10/09/23 14:46 10/09/23 15:01 Temperature 98.2 F 98.0 F Pulse Rate 119 H 107 H Respiratory Rate 20 20 24 H Blood Pressure 146/70 H 148/96 H 154/59 H Pulse Oximetry 96 100 99 Oxygen Delivery Room Air 10/09/23 15:46 10/09/23 16:30 10/09/23 17:01 Temperature 98.0 F 97.8 F Pulse Rate 131 H 122 H 118 H Respiratory Rate 16 20 17 Blood Pressure 152/93 H 166/80 H 157/137 H Pulse Oximetry 98 100 98 Oxygen Delivery 10/09/23 18:03 Temperature 98.0 F Pulse Rate 115 H Respiratory Rate 16 Blood Pressure 157/74 H Pulse Oximetry 98 Oxygen Delivery Exam Narrative: General: Well-developed, frail elderly female sitting up in bed. Weight: 59 kg. BMI: 22.3. HEENT: Normocephalic, atraumatic. PERRL, EOMI. Sclera anicteric. Tacky mucous membranes. Neck: Supple. Respiratory: Lungs are clear to auscultation bilaterally. Cardiovascular:
--- NOTE | 2023-10-09 20:02 | ADMGEN ---
This patient, Tequila Johnson, was admitted to Medical Room 345-01. Patient/family oriented to hospital policies and general routines including ID bracelet, bed and alarms, visiting hours, pain management, procedures, bathroom and other care routines, personal items, smoking policy, room service/diet, and visiting hours. Information on how to activate the Rapid Response Team has been discussed. Patient/Family are encouraged to report perceived risks to care and to ask questions if they do not understand what they are told or what they should do.
[2023-10-09] MEDS: MORPHINE SULFATE (*CRX) 2 MG/ML INJ IV PUSH (22:08)
[2023-10-10] LABS: Influenza A QL RT-PCR Negative (Negative); Influenza B QL RT-PCR Negative (Negative); RSV RNA, RT-PCR Negative (Negative); SARS-CoV-2 RNA PCR Negative (Negative)
[2023-10-10] MEDS: BISACODYL 10 MG SUPPOSITORY RECTAL (00:22)
[2023-10-10 05:22] VITALS: BP 95/66; PULSE 103; RESP 16; TEMP 36.9; O2SAT 96
[2023-10-10] MEDS: ACETAMINOPHEN 325 MG TABLET 650 MG PO (05:28)
[2023-10-10 05:39] VITALS: BMI 21.0
[2023-10-10 05:42] LABS: Hemoglobin 12.7 g/dL (12.0-15.0); Mean Corpuscular HGB Conc 31.8 g/dl (32-36); Mean Corpuscular Hemoglobin 31.4 pg (26-34); Mean Corpuscular Volume 98.8 fl (80-100); Mean Platelet Volume 11.6 fl (7.4-10.4); Platelet Count Result 162 k/mm3 (150-375); Red Blood Count 4.05 M/mm3 (4.2-5.4); Red Cell Distribution Width 14.5 % (11.5-14.5); White Blood Count 8.6 K/mm3 (4.5-10.0)
[2023-10-10 05:57] LABS: Anion Gap 6 mmol/L (8-16); Blood Urea Nitrogen 24 mg/dL (7-17); Calcium 8.8 mg/dL (8.4-10.2); Carbon Dioxide 25 mmol/L (22-30); Chloride 107 mmol/L (98-107); Estimated CRCL calculation 33 ml/min; Estimated Glomerular Filt Rate 59; Glucose 109 mg/dL (65-110); Magnesium 2.3 mg/dL (1.6-2.3); Potassium 3.5 mmol/L (3.4-5.0); Sodium 138 mmol/L (137-145)
[2023-10-10 11:25] VITALS: BP 122/76
[2023-10-10] MEDS: MORPHINE SULFATE (*CRX) 2 MG/ML INJ IV PUSH (11:29)
[2023-10-10 14:00] VITALS: BP 128/76; PULSE 50; RESP 20; TEMP 36.4; O2SAT 96
--- NOTE | 2023-10-10 14:26 | PM.IMPN ---
Progress Note: A&P Assessment and Plan (1) Closed subcapital fracture of left femur: Code(s): S72.012A - Unspecified intracapsular fracture of left femur, initial encounter for closed fracture Status: Acute Assessment and Plan: She has a left subcapital hip fracture and she is being admitted for pain control and consult with Dr. Rivero. She will be NPO after midnight for possible surgery. Orthopedics consulted. Analgesics as needed. (2) Leukocytosis: Code(s): D72.829 - Elevated white blood cell count, unspecified Status: Acute Assessment and Plan: Patient presented with a white blood cell count of 13.4. This is since resolved (3) Anxiety: Code(s): F41.9 - Anxiety disorder, unspecified Status: Acute Assessment and Plan: home medications as needed (4) Hypertension: Code(s): I10 - Essential (primary) hypertension Status: Acute Assessment and Plan: home medications (5) Constipation: Code(s): K59.00 - Constipation, unspecified Status: Acute Assessment and Plan: p.r.n. MiraLax Plan tomorrow. Analgesics are available as needed. She is tachycardic however it looks like her heart rate has a tendency to run high. She appears anxious on exam as well. WBC count is elevated at 13.4 though no history was given to suggest underlying infection. Chest x-ray was without infiltrates. Urinalysis has been ordered and is pending. Blood pressures have been running a bit high, likely due to pain and anxiety. Quite a bit of stool was noted on x-ray of the hip and pelvis and she will be given a Dulcolax suppository and should probably be started on MiraLax once she is back tolerating a diet. Her home medications will be reviewed and resumed as appropriate. Subjective Date/time seen: 10/10/23 14:26 Interval history: patient is very demented. She is alert oriented to self. She does have some hip discomfort but otherwise no complaints. Awaiting further recommendations from Orthopedics at this time. Exam Narrative: GENERAL: Comfortable, no acute distress HENMT: moist mucous membranes EYES: EOM intact b/l NECK: no lymphadenopathy RESPIRATORY: clear to auscultation CARDIO: RRR GI: soft, nontender, bowel sounds present SKIN: no rashes EXTREMITIES: no edema, redness or tenderness Objective Data Vital Signs Vital Signs: Vital Signs - 24 hr 10/09/23 14:46 10/09/23 15:01 10/09/23 15:46 Temperature 98.0 F 98.0 F Pulse Rate 107 H 131 H Respiratory Rate 20 24 H 16 Blood Pressure 148/96 H 154/59 H 152/93 H Pulse Oximetry 100 99 98 Oxygen Delivery 10/09/23 16:30 10/09/23 17:01 10/09/23 18:03 Temperature 97.8 F 98.0 F Pulse Rate 122 H 118 H 115 H Respiratory Rate 20 17 16 Blood Pressure 166/80 H 157/137 H 157/74 H Pulse Oximetry 100 98 98 Oxygen Delivery 10/09/23 20:08 10/10/23 05:22 10/10/23 07:50 Temperature 99.8 F H 98.4 F Pulse Rate 104 H 103 H Respiratory Rate 16 16 Blood Pressure 125/93 H 95/66 L Pulse Oximetry 94 96 Oxygen Delivery Room Air 10/10/23 11:25 10/10/23 14:00 Temperature 97.5 F L Pulse Rate 50 L Respiratory Rate 20 Blood Pressure 122/76 128/76 Pulse Oximetry 96 Oxygen Delivery Intake/Output Intake/Output: Intake & Output 10/07/23 10/08/23 10/09/23 10/10/23 23:59 23:59 23:59 23:59 Intake Total 150 Balance 150 Meds/Results Medications: Active Medications Generic Name Dose Route Start Last Admin Trade Name Freq PRN Reason Stop Dose Admin Acetaminophen 650 mg 10/09/23 16:41 10/10/23 05:28 Acetaminophen 325 Mg Tablet PO 650 mg Q4H PRN Administration Mild Pain (1-3) or Fever Hydrocodone Bitart/Acetaminophen 1 tab 10/09/23 16:41 Hydrocodone/Acetaminophen (*Crx) 5-325 Mg Tablet PO Q4H PRN Pain Rated 4-6 Buspirone HCl 15 mg 10/10/23 09:00 10/10/23 08:00 Buspirone Hcl 5 Mg Tablet PO Not Given KYLER
[2023-10-10] MEDS: TIZANIDINE HCL 2 MG TABLET PO (20:02)
[2023-10-10] MEDS: LOVASTATIN 20 MG TABLET PO (20:02)
[2023-10-10 22:00] VITALS: BP 117/78; PULSE 121; RESP 18; TEMP 37; O2SAT 96
[2023-10-11 06:00] VITALS: BP 131/65; PULSE 131; RESP 18; TEMP 36.9; O2SAT 96
--- NOTE | 2023-10-11 06:21 | PC.NURSE ---
Phone consent received for patient to go to surgery today from her POA, Ronaldo, which is her son. Jazmyn Bruner RN was a witness to the phone call and Ronaldo is okay with proceeding with the surgery today.
[2023-10-11] MEDS: HYDROcodone/acetaminophen (*CRX) 5-325 MG TABLET 1 TAB PO (06:34)
[2023-10-11 07:43] LABS: Hematocrit 40.3 % (37.0-47.0); Hemoglobin 12.8 g/dL (12.0-15.0); Immature Platelet Fraction Pct 6.3 % (0.9-11.2); Mean Corpuscular HGB Conc 31.8 g/dl (32-36); Mean Corpuscular Hemoglobin 31.8 pg (26-34); Mean Platelet Volume 11.8 fl (7.4-10.4); Platelet Count Result 139 k/mm3 (150-375); Red Blood Count 4.03 M/mm3 (4.2-5.4); Red Cell Distribution Width 14.2 % (11.5-14.5); White Blood Count 12.6 K/mm3 (4.5-10.0)
[2023-10-11 07:58] LABS: Alanine Aminotransferase 245 U/L (6-35); Albumin Level 3.6 g/dL (3.5-5.1); Alkaline Phosphatase 93 U/L (38-126); Anion Gap 10 mmol/L (8-16); Aspartate Amino Transferase 127 U/L (14-36); Bilirubin,Total 1.5 mg/dL (0.2-1.3); Blood Urea Nitrogen 22 mg/dL (7-17); Calcium 8.8 mg/dL (8.4-10.2); Carbon Dioxide 23 mmol/L (22-30); Chloride 104 mmol/L (98-107); Estimated CRCL calculation 37 ml/min; Estimated Glomerular Filt Rate > 60; Glucose 122 mg/dL (65-110); Potassium 3.4 mmol/L (3.4-5.0); Sodium 137 mmol/L (137-145)
--- NOTE | 2023-10-11 10:21 | PM.IMPN ---
Progress Note: A&P Assessment and Plan (1) Closed subcapital fracture of left femur: Code(s): S72.012A - Unspecified intracapsular fracture of left femur, initial encounter for closed fracture Status: Acute Assessment and Plan: She has a left subcapital hip fracture and she is being admitted for pain control and consult with Dr. Rivero. She will be NPO after midnight for possible surgery. Orthopedics consulted. Surgery planned for tomorrow at 9 am Analgesics as needed. PT, OT and DVT prophylaxis per Orthopedic team. (2) Leukocytosis: Code(s): D72.829 - Elevated white blood cell count, unspecified Status: Acute Assessment and Plan: Patient presented with a white blood cell count of 13.4. This is since resolved (3) Anxiety: Code(s): F41.9 - Anxiety disorder, unspecified Status: Acute Assessment and Plan: home medications as needed (4) Hypertension: Code(s): I10 - Essential (primary) hypertension Status: Acute Assessment and Plan: home medications (5) Constipation: Code(s): K59.00 - Constipation, unspecified Status: Acute Assessment and Plan: p.r.n. MiraLax Subjective Date/time seen: 10/11/23 10:21 Interval history: Patient doing well today mental status is at baseline. Plan for surgery tomorrow at 9:00 a.m.. PT OT and DVT prophylaxis per Orthopedics. Patient is not complaining of any pain at this time. Exam Narrative: GENERAL: Comfortable, no acute distress HENMT: moist mucous membranes EYES: EOM intact b/l NECK: no lymphadenopathy RESPIRATORY: clear to auscultation CARDIO: RRR GI: soft, nontender, bowel sounds present SKIN: no rashes EXTREMITIES: no edema, redness or tenderness Objective Data Vital Signs Vital Signs: Vital Signs - 24 hr 10/10/23 11:25 10/10/23 14:00 10/10/23 22:00 Temperature 97.5 F L 98.6 F Pulse Rate 50 L 121 H Respiratory Rate 20 18 Blood Pressure 122/76 128/76 117/78 Pulse Oximetry 96 96 Oxygen Delivery 10/11/23 06:00 10/11/23 07:59 Temperature 98.4 F Pulse Rate 131 H Respiratory Rate 18 Blood Pressure 131/65 Pulse Oximetry 96 Oxygen Delivery Room Air Intake/Output Intake/Output: Intake & Output 10/08/23 10/09/23 10/10/23 10/11/23 23:59 23:59 23:59 23:59 Intake Total 690 Balance 690 Meds/Results Medications: Active Medications Generic Name Dose Route Start Last Admin Trade Name Freq PRN Reason Stop Dose Admin Acetaminophen 650 mg 10/09/23 16:41 10/10/23 05:28 Acetaminophen 325 Mg Tablet PO 650 mg Q4H PRN Administration Mild Pain (1-3) or Fever Hydrocodone Bitart/Acetaminophen 1 tab 10/09/23 16:41 10/11/23 06:34 Hydrocodone/Acetaminophen (*Crx) 5-325 Mg Tablet PO 1 tab Q4H PRN Administration Pain Rated 4-6 Buspirone HCl 15 mg 10/10/23 09:00 10/11/23 07:35 Buspirone Hcl 5 Mg Tablet PO Not Given DAILY DORITA Sodium Chloride 37.7 ml/ 0 ml 10/12/23 06:00 Morphine Sulfate 2 mg/ INFILTRATE 10/12/23 06:01 Ropivacaine 200 mg/ Ketorolac ONCE ONE Tromethamine 15 mg/ Epinephrine HCl 0.3 mg Lovastatin 20 mg 10/10/23 21:00 10/10/23 20:02 Lovastatin 20 Mg Tablet PO 20 mg HS DORITA Administration Morphine Sulfate 2 mg 10/09/23 16:41 10/10/23 11:29 Morphine Sulfate (*Crx) 2 Mg/Ml Inj IV PUSH 2 mg Q2H PRN Administration Pain Rated 7-10 Ondansetron HCl 4 mg 10/09/23 16:41 Ondansetron Inj 4 Mg/2 Ml Vial IV PUSH Q4H PRN Nausea Polyethylene Glycol 17 gm 10/10/23 09:00 10/11/23 07:35 Polyethylene Glycol 3350 17 Gm Powd.Pack PO Not Given QAM DORITA Sertraline HCl 100 mg 10/10/23 09:00 10/11/23 07:35 Sertraline Hcl 50 Mg Tablet PO Not Given DAILY DORITA Tizanidine HCl 2 mg 10/10/23 21:00 10/10/23 20:02 Tizanidine Hcl 2 Mg Tablet PO 2 mg HS DORITA Administration Radiology Results: ITS Impressions
--- NOTE | 2023-10-11 12:24 | PM.CNOR ---
Assessment and Plan Assessment and plan (1) Left displaced femoral neck fracture: Code(s): S72.002A - Fracture of unspecified part of neck of left femur, initial encounter for closed fracture Status: Acute Assessment and Plan: NICCI WAS ADMITED FOR LEFT FEMORAL NMECK SURGERY. SHE DENIES ANY OTHER INJURY. SHE WILL REQUIRE LEFT HIP HEMIARTHROPLASTY WITH BIPOLAR PROSTHESIUS. HISTORY, EXAM AND RADIOGRAPHS REVIEWED WITH THE PATIENT. REFERRING PHYSICIAN RECORDS AND IMAGES REVIEWED. CONDITION, NATURE, ETIOLOGY AND COURSE OF NATURAL HISTORY REVIEWED. CONSERVATIVE AND OPERATIVE TREATMENT OPTIONS REVIEWED WELL THE RISKS AND BENEFITS OF EACH. DISCUSSED NONOPERATIVE AND OPERATIVE TREATMENT OPTIONS WITH THE PATIENT. THE PATIENT'S QUESTIONS WERE ANSWERED. THE PATIENT DESIRES OPERATIVE TREATMENT. DISCUSSED __LEFT HIP HEMIARTHROPLASTY WITH BIPOLAR PROSTHESIS . RISKS OF SURGERY INCLUDING BUT NOT LIMITED TO NEUROVASCULAR DAMAGE, WOUND COMPLICATIONS, BLOOD CLOT, PULMONARY EMBOLUS, STROKE, FL, ANESTHETIC RISKS UP TO AND INCLUDING WERE REVIEWED. CONTINUED PAIN AND POSSIBLE DYSFUNCTION WERE EXPLAINED. NO GUARANTEES WERE OFFERED. THE PATIENT AND FAMILY UNDERSTANDS AND WISHES TO PROCEED. History of Present Illness HPI Consult date: 10/11/23 Chief complaint: Hip Fracture,Fecal Impaction Narrative: NICCI IS HERE MS/P A FALL 2 DAYS AGO ONTO HER LEFT HIP. SHE WAS SEEN IN THE ED AND DIAGNOSED WITH A DISPLACED LEFT FEMORAL NECK FRACTURE. SHE DENIES ANY RIGHT UPPER OR LOWER EXTREMITY PAIN OR LEFT UPPER EXTREMITY PAIN OR NECK OR BACK PAIN. SHE DENIES ANY LOC OR SOB OR CP. HISTORY, EXAM AND RADIOGRAPHS REVIEWED WITH THE PATIENT. REFERRING PHYSICIAN RECORDS AND IMAGES REVIEWED. CONDITION, NATURE, ETIOLOGY AND COURSE OF NATURAL HISTORY REVIEWED. CONSERVATIVE AND OPERATIVE TREATMENT OPTIONS REVIEWED WELL THE RISKS AND BENEFITS OF EACH. [facility] Past Medical History Medical History Anxiety Breast cancer Coronary artery disease Dementia Depression Hyperlipidemia Hypertension Surgical History Surgical History History of appendectomy History of bilateral mastectomy History of cholecystectomy History of hysterectomy History of permanent cardiac pacemaker placement Family History Family History Other Family history unknown Social History Social History Social History: Surrogate medical decision maker: Ofelia Johnson, daughter. Code status: Full code. Smoking status: Never smoker Alcohol intake: never Substance use: never Substance use type: does not use Living arrangements: with family Spiritual care concerns: No Meds Home Medications and Allergies Home Medications Medication Instructions Recorded Confirmed Type aspirin 81 mg tablet,delayed 81 mg PO DAILY 09/19/22 10/09/23 History release buspirone 15 mg tablet 15 mg PO DAILY 09/19/22 10/09/23 History lovastatin 20 mg tablet 20 mg PO HS 09/19/22 10/09/23 History sertraline 50 mg tablet 100 mg PO DAILY 09/19/22 10/09/23 History tizanidine 2 mg tablet 2 mg PO HS 09/19/22 10/09/23 History Allergies Allergy/AdvReac Type Severity Reaction Status Date / Time No Known Allergies Allergy Verified 10/09/23 12:39 Vital Signs Vital Signs - 24 hr 10/10/23 14:00 10/10/23 22:00 10/11/23 06:00 Temperature 36.4 C L 37.0 C 36.9 C Pulse Rate 50 L 121 H 131 H Respiratory Rate 20 18 18 Blood Pressure 128/76 117/78 131/65 Pulse Oximetry 96 96 96 Oxygen Delivery 10/11/23 07:59 Temperature Pulse Rate Respiratory Rate Blood Pressure Pulse Oximetry Oxygen Delivery Room Air Exam Back/Spine/Pelvis: Back: No ecchymosis and No back tenderness Cervical Spine: normal cervical lordosis, No cervical mus
[2023-10-11] MEDS: MORPHINE SULFATE (*CRX) 2 MG/ML INJ IV PUSH (13:27)
[2023-10-11 14:14] VITALS: BP 145/72; PULSE 83; RESP 18; TEMP 37.4; O2SAT 90
[2023-10-11] MEDS: LOVASTATIN 20 MG TABLET PO (20:17)
[2023-10-11] MEDS: TIZANIDINE HCL 2 MG TABLET PO (20:17)
[2023-10-11 21:59] VITALS: BP 141/86; PULSE 67; RESP 18; TEMP 36.8; O2SAT 97
[2023-10-12] VITALS (10 sets, daily range): BP systolic 101–136; BP diastolic 58–86; PULSE 68–111; RESP 16–20; TEMP 36.2–36.8; O2SAT 92–99
[2023-10-12 06:08] LABS: Hematocrit 39.5 % (37.0-47.0); Hemoglobin 12.5 g/dL (12.0-15.0); Mean Corpuscular HGB Conc 31.6 g/dl (32-36); Mean Corpuscular Hemoglobin 31.5 pg (26-34); Mean Corpuscular Volume 99.5 fl (80-100); Mean Platelet Volume 11.8 fl (7.4-10.4); Platelet Count Result 148 k/mm3 (150-375); Red Blood Count 3.97 M/mm3 (4.2-5.4); Red Cell Distribution Width 14.3 % (11.5-14.5); White Blood Count 13.6 K/mm3 (4.5-10.0)
[2023-10-12 06:20] LABS: Alanine Aminotransferase 153 U/L (6-35); Albumin Level 3.4 g/dL (3.5-5.1); Alkaline Phosphatase 72 U/L (38-126); Anion Gap 7 mmol/L (8-16); Aspartate Amino Transferase 54 U/L (14-36); Bilirubin,Total 1.3 mg/dL (0.2-1.3); Blood Urea Nitrogen 22 mg/dL (7-17); Calcium 8.4 mg/dL (8.4-10.2); Carbon Dioxide 25 mmol/L (22-30); Chloride 102 mmol/L (98-107); Estimated CRCL calculation 42 ml/min; Estimated Glomerular Filt Rate > 60; Glucose 113 mg/dL (65-110); Potassium 3.7 mmol/L (3.4-5.0); Sodium 134 mmol/L (137-145)
[2023-10-12] MEDS: LACTATED RINGERS 1,000 ML 30 ML IV CONT ×2 (08:15→14:17)
[2023-10-12] MEDS: TRANEXAMIC ACID 1,000MG/ISO100 1,000 MG/100 ML BAG 200 MG IVPB (08:15)
--- NOTE | 2023-10-12 08:21 | WPDANESEPPF ---
Anes - Initial Pre Proc Eval Procedure: Operation Date: 10/12/23 09:00 Proposed Procedures p Left Bipolar Hip Replacement - Dipesh Rivero MD Date/Time: 10/12/23 08:21 Surgeon: Hussein Carcamo MD Pre Op Diagnosis: Hip Fracture,Fecal Impaction Patient Data Age: 88 Gender: F Height: 1.63 m Weight: 55.5 kg Last Vital Signs Temp 36.4 C 10/12/23 06:00 Pulse 68 10/12/23 06:00 Resp 18 10/12/23 06:00 BP 133/80 10/12/23 06:00 Pulse Ox 97 10/12/23 06:00 O2 Del Method Room Air 10/11/23 07:59 Allergies Allergy/AdvReac Type Severity Reaction Status Date / Time No Known Allergies Allergy Verified 10/09/23 12:39 Home Medications Medication Instructions Recorded Confirmed Type aspirin 81 mg tablet,delayed 81 mg PO DAILY 09/19/22 10/09/23 History release buspirone 15 mg tablet 15 mg PO DAILY 09/19/22 10/09/23 History lovastatin 20 mg tablet 20 mg PO HS 09/19/22 10/09/23 History sertraline 50 mg tablet 100 mg PO DAILY 09/19/22 10/09/23 History tizanidine 2 mg tablet 2 mg PO HS 09/19/22 10/09/23 History Laboratory Tests 10/12/23 05:31 WBC 13.6 H K/mm3 (4.5-10.0) RBC 3.97 L M/mm3 (4.2-5.4) Hgb 12.5 g/dL (12.0-15.0) Hct 39.5 % (37.0-47.0) MCV 99.5 fl (80-100) MCH 31.5 pg (26-34) MCHC 31.6 L g/dl (32-36) RDW 14.3 % (11.5-14.5) Plt Count 148 L k/mm3 (150-375) MPV 11.8 H fl (7.4-10.4) Sodium 134 L mmol/L (137-145) Potassium 3.7 mmol/L (3.4-5.0) Chloride 102 mmol/L (98-107) Carbon Dioxide 25 mmol/L (22-30) Anion Gap 7 L mmol/L (8-16) BUN 22 H mg/dL (7-17) Creatinine 0.70 mg/dL (0.7-1.0) Estim Creat Clear Calc 42 ml/min Estimated GFR > 60 (59 - ) Glucose 113 H mg/dL (65-110) Calcium 8.4 mg/dL (8.4-10.2) Total Bilirubin 1.3 mg/dL (0.2-1.3) AST 54 H U/L (14-36) ALT 153 H U/L (6-35) Alkaline Phosphatase 72 U/L (38-126) Total Protein 7.0 g/dL (6.3-8.2) Albumin 3.4 L g/dL (3.5-5.1) Patient hx anesthesia problems: none Family hx anesthesia problems: none Results Review: All pre-operative results and documents have been reviewed as part of the pre-operative evaluation. [facility] Past Medical History Medical History Anxiety Breast cancer Coronary artery disease Dementia Depression Hyperlipidemia Hypertension Surgical History Surgical History History of appendectomy History of bilateral mastectomy History of cholecystectomy History of hysterectomy History of permanent cardiac pacemaker placement Family History Family History Other Family history unknown Social History Social History Social History: Surrogate medical decision maker: Ofelia Johnson, daughter. Code status: Full code. Smoking status: Never smoker Alcohol intake: never Substance use: never Substance use type: does not use Living arrangements: with family Spiritual care concerns: No Anes - Eval Final PreProcedure Day of Procedure 10/12/23 08:21 Patient weight: normal Heart: regular rate and rhythm Lungs: decreased breath sounds Airway: Mallampati scale class III Neurological: other (alert) Last oral intake: >/= 8 hours ASA classification: IV Emergent: no Anesthetic plan: proceed Anesthesia type and monitoring: general LMA and standard monitoring Results Review: All pre-operative results and documents have been reviewed as part of the pre-operative evaluation. Informed Consent: The patient's anesthetic plan and its attendant risks and benefits were discussed with the patient/family/POA. Questions were solicited and answers provided to the satisfaction of the patient/family/POA.
--- NOTE | 2023-10-12 09:05 | WPDHPUPDATE1 ---
History and Physical Update Update Date/Time: 10/12/23 09:05 History and Physical has been reviewed, including an updated exam of the patient. There are NO changes in the patient's condition. Risks, benefits, and alternatives have been discussed and questions answered. Patient agrees to proceed with procedure.
[2023-10-12] MEDS: ceFAZolin 2 GM/D5W 50 ML 2 GM/50 ML BAG IVPB ×2 (09:14→17:06)
[2023-10-12] MEDS: VANCOMYCIN 1,000 MG/NS 250 ML 1,000 MG/250 ML BAG 250 MG IVPB (13:20)
--- NOTE | 2023-10-12 14:19 | WPDURCON ---
Assessment and Plan Assessment and plan (1) Left displaced femoral neck fracture: Code(s): S72.002A - Fracture of unspecified part of neck of left femur, initial encounter for closed fracture Status: Acute Assessment and Plan: Fourteen Hebrew coude catheter placed while patient was under anesthetic. 10 cc were placed in the balloon. Proximally 400 cc of urine returned. Would leave the Mcmullen in until more active prior to performing voiding trial. Urology Consult Note HPI Date Seen: 10/12/23 Time Seen: 14:19 Requesting Physician: Hussein Carcamo MD Primary Care Provider: Damir Flaherty, Consult Narrative Reason for consult: Inability to place Mcmullen Narrative: Tequila Johnson is a 88 year old female who underwent a left femur fracture repair. Patient has been a difficult catheterization in the past and there was difficulty placed a catheter preoperatively. I was asked to, placed a catheter at the end the procedure. All history is obtained from the patient's chart as she is still under anesthesia. Review of Systems Review of Systems: All systems reviewed & are unremarkable except as noted in HPI and below PMFSH Past Medical History Medical History Anxiety Breast cancer Coronary artery disease Dementia Depression Hyperlipidemia Hypertension Surgical History Surgical History History of appendectomy History of bilateral mastectomy History of cholecystectomy History of hysterectomy History of permanent cardiac pacemaker placement Family History Family History Other Family history unknown Social History Social History Social History: Surrogate medical decision maker: Ofelia Johnson, daughter. Code status: Full code. Smoking status: Never smoker Alcohol intake: never Substance use: never Substance use type: does not use Living arrangements: with family Spiritual care concerns: No Meds Home Medications and Allergies Home Medications Medication Instructions Recorded Confirmed Type aspirin 81 mg tablet,delayed 81 mg PO DAILY 09/19/22 10/09/23 History release buspirone 15 mg tablet 15 mg PO DAILY 09/19/22 10/09/23 History lovastatin 20 mg tablet 20 mg PO HS 09/19/22 10/09/23 History sertraline 50 mg tablet 100 mg PO DAILY 09/19/22 10/09/23 History tizanidine 2 mg tablet 2 mg PO HS 09/19/22 10/09/23 History Allergies Allergy/AdvReac Type Severity Reaction Status Date / Time No Known Allergies Allergy Verified 10/12/23 08:39 Vital Signs Vital Signs - 24 hr 10/11/23 21:59 10/12/23 06:00 10/12/23 08:00 Temperature 36.8 C 36.4 C 36.3 C L Pulse Rate 67 68 78 Respiratory Rate 18 18 16 Blood Pressure 141/86 H 133/80 136/75 Pulse Oximetry 97 97 95 Oxygen Delivery Room Air Exam : External Female Exam: other (Retracted urethral opening into vaginal canal) Results Labs 10/12/23 05:31 10/12/23 05:31 Labs: Short CBC 10/12/23 Range/Units 05:31 WBC 13.6 H (4.5-10.0) K/mm3 Hgb 12.5 (12.0-15.0) g/dL Hct 39.5 (37.0-47.0) % Plt Count 148 L (150-375) k/mm3 BMP 10/12/23 05:31 Sodium 134 L Potassium 3.7 Chloride 102 Carbon Dioxide 25 BUN 22 H Creatinine 0.70 Glucose 113 H Calcium 8.4 Liver Function 10/12/23 Range/Units 05:31 Total Bilirubin 1.3 (0.2-1.3) mg/dL AST 54 H (14-36) U/L ALT 153 H (6-35) U/L Alkaline Phosphatase 72 (38-126) U/L Albumin 3.4 L (3.5-5.1) g/dL
--- NOTE | 2023-10-12 14:27 | W.PM.PROC2 ---
Procedure Note - Detailed Date of Procedure 10/12/23 Pre-op Diagnosis LEFT FEMORAL NECK Fracture Post-op Diagnosis Same Procedure Performed LEFT HIP HEMIARTHROPLASTY WITH BIPOLAR PROSTHESIS Surgeon Dipesh Rivero MD Anesthesia General Description of Procedure THE PATIENT WAS TAKEN TO THE OPERATING ROOM IN STABLE CONDITION. SHE WAS PLACED IN THE LATERAL DECUBITUS AND THE LEFT LOWER EXTREMITY WAS PREPPED AND DRAPED IN THE STERILE FASHION. INCISION WAS MADE IN THE POSTERIOR LATERAL SIDE OF THE HIP, DOWN TO THE FASCIA LAYER. THE FASCIA WAS INCISED. THE HIP WAS EXPOSED. THE SHORT EXTERNAL ROTATORS WERE EXPOSED AND THERE WAS A LARGE HEMATOMA. THE CAPSULE WAS INCISED EXPOSING THE FRACTURE. THE FEMORAL HEAD WAS REMOVED. IT MEASURED 44 MM. AN OSTEOTOMY WAS MADE TO THE FEMORAL NECK ABOUT 1 CM PROXIMAL TO THE LESSER TROCHANTER. NEXT THE FEMUR WAS PREPARED WITH AN INITIAL CANAL FINDER THEN SEQUENTIAL REAMING UNTIL A 8 REAMER AND BROACHING TILL A #7 BROACH IN 15 OF ANTEVERSION. A FRACTURE TO THE GREATER TROCHANTER WAS OBSERVED. THE BROACH WAS REMOVED. A STAINLESS STEEL 2-0 CABLE WAS PASSED THROUGH THE GREATER TROCHANTER THEN AROUND THE LESSER TROCHANTER. THE FRACTURE WAS REDUCED TO ANATOMIC POSITION. THE CABLE WAS TIGHTENED THEN CRIMPED. THE FRACTURE WAS STABLE. A SIZE 7 BROACH WAS RE INSERTED INTO THE FEMORAL CANAL IN 15 DEG OF ANTEVERSION. A 0 STANDARD OFFSET NECK BIPOLAR TRIAL IN A 44 MM SHELL WAS PLACED. THE HIP WAS REDUCED. THE SHUCK TEST WAS EXCELLENT AND THE STABILITY IN FLEXION AND ROTATION WAS EXCELLENT. LEG LENGTHS WERE GROSSLY EQUAL. TRIALS WERE REMOVED. A BIOMET FRACTURE STEM SIZE [address] IN TO PL[address] WITH A STANDARD OFFSET IN 15 DEG OF ANTEVERSION. ONCE THE CEMENT WAS HARDENED A 0 BIPOLAR HEAD NECK AND 44 BIPOLAR TRIAL WAS PLACED AGAIN. THE HIP WAS TRIALED AND THE STABILITY WAS EXCELLENT WERE THE LEG LENGTHS AND THE SHUCK TEST. NEXT A BIPOLAR HEAD NECK 0 IMPLANT WITH A 44 MM COBALT CHROME SHELL WAS PLACED AND TRIALED ONCE AGAIN SHOWING EXCELLENT STABILITY AND GROSSLY EQUAL LEG LENGTHS. THE FRACTURE WAS STABLE WITH HIP ROTATION WITH NO OBVIOUS MOTION. THE WOUND WAS IRRIGATED WITH STERILE BETADINE AND WATER FOR 3 MIN. THEN WASHED AGAIN. THE CAPSULE AND THE EXTERNAL ROTATORS WERE APPROXIMATED WITH NUMBER 2 VICRYL. THE FASCIA WITH No 2 QUIL AND THE SUB CUTANEOUS LAYER WITH 2-0 ABSORBABLE SUTURE WITH A RUNNING 3-0 SUBCUTICULAR LAYER WELL. DERMABOND WAS PLACED AND STERILE DRESSING WAS APPLIED. PATIENT WAS PLACED BACK ON TO THE SUPINE POSITION AND WAS EXTUBATED. Estimated Blood Loss 1,000 Drains No Pathology None sent Complications Other complications (GREATER TROCHANTER FRACTURE) Condition Stable Disposition PACU
[2023-10-12] MEDS: fentaNYL CITRATE INJ (*CRX) 100 MCG/2 ML VIAL 25 MCG IV PUSH ×3 (14:30→14:40)
[2023-10-12 14:57] LABS: Hematocrit 43.4 % (37.0-47.0); Hemoglobin 13.7 g/dL (12.0-15.0)
[2023-10-12] MEDS: SODIUM CHLORIDE 0.9% IV 1,000 ML 125 ML IV CONT (15:33)
--- NOTE | 2023-10-12 17:02 | PM.IMPN ---
Progress Note: A&P Assessment and Plan (1) Closed subcapital fracture of left femur: Code(s): S72.012A - Unspecified intracapsular fracture of left femur, initial encounter for closed fracture Status: Acute Assessment and Plan: She has a left subcapital hip fracture and she is being admitted for pain control and consult with Dr. Rivero. She will be NPO after midnight for possible surgery. Orthopedics consulted. Surgery planned for today at 9 am Analgesics as needed. PT, OT and DVT prophylaxis per Orthopedic team. (2) Leukocytosis: Code(s): D72.829 - Elevated white blood cell count, unspecified Status: Acute Assessment and Plan: Patient presented with a white blood cell count of 13.4. This is since resolved (3) Anxiety: Code(s): F41.9 - Anxiety disorder, unspecified Status: Acute Assessment and Plan: home medications as needed (4) Hypertension: Code(s): I10 - Essential (primary) hypertension Status: Acute Assessment and Plan: home medications (5) Constipation: Code(s): K59.00 - Constipation, unspecified Status: Acute Assessment and Plan: p.r.n. MiraLax Time Spent With Patient Time with patient: less than 15 minutes Subjective Date/time seen: 10/12/23 1600 Interval history: 10/11: Patient doing well today mental status is at baseline.? Plan for surgery tomorrow at 9:00 a.m..? PT OT and DVT prophylaxis per Orthopedics.? Patient is not complaining of any pain at this time. 10/12: patient returned from surgery at 4:00 p.m. Patient confused, hallucinating. Patient able to state her 1st name but on her last and does not answer any other questions. Does not follow simple commands. He is alert and pleasant and appears in no acute distress. Family at bedside. Review of Systems Review of Systems: ROS unobtainable: Yes unobtainable due to medical condition Constitutional: Comments: Patient has history of dementia at baseline Exam Narrative: patient is alert and oriented to self only and appears to be having visual and auditory hallucinations. Const: General: comfortable and no acute distress HENMT: Face/Nose/Sinus: Normal nares present Mouth: Yes dry mucous membranes Eyes: General: appearance normal, both eyes and all related structures Sclera: sclerae normal Pupils: Equal, round and reactive pupils present EOM: EOMs intact bilaterally Neck: Neck: supple and no JVD Resp: Effort & Inspection: normal respiratory effort Auscultation: clear to auscultation bilaterally Cardio: Rate: regular rate Rhythm: regular rhythm Other: No murmur, rub, gallop noted GI: Other: abdomen is flat, soft, nontender to palpation with bowel sounds present but hypoactive Skin: General skin exam: normal color Other: patient has ecchymosis to the left lateral and medial aspects of the foot. Surgical dressing to the left lateral hip dry and intact. Neuro: Speech: normal speech Motor exam (neuro): Normal motor muscle tone present throughout Sensory Exam: normal sensation Extrem: General: normal exam except as noted Other: Ecchymosis to the lateral and medial aspect of the left foot. Surgical dressing to the left lateral hip drain intact Psych: Mental Status: mental status grossly normal ( patient is oriented to self only and is having audible and visual hallucin) Affect: normal affect Other: patient has a pleasant affect and is laughing. Appears in no acute distress. Objective Data Vital Signs Vital Signs: Vital Signs - 24 hr 10/11/23 21:59 10/12/23 06:00 10/12/23 08:00 Temperature 98.3 F 97.6 F 97.4 F L Pulse Rate 67 68 78 Respiratory Rate 18 18 16 Blood Pressure 141/86 H 133/80 136/75 Pulse Oximetry 97 97 95 Oxygen Delivery Room Air Oxygen Flow Rate 10/12/23 14:17 10/12/23 14:30 10/12/23 14:45 Temperature 97.3 F L Pulse Rate 111 H
[2023-10-12] MEDS: LOVASTATIN 20 MG TABLET PO (20:35)
[2023-10-12] MEDS: FAMOTIDINE 20 MG TABLET PO (20:35)
[2023-10-12] MEDS: TIZANIDINE HCL 2 MG TABLET PO (20:35)
[2023-10-12] MEDS: HYDROcodone/acetaminophen (*CRX) 7.5-325 MG TABLET 1 TAB PO (20:35)
[2023-10-12] MEDS: diazePAM (*CRX) 5 MG TABLET PO (20:35)
[2023-10-13] MEDS: ceFAZolin 2 GM/D5W 50 ML 2 GM/50 ML BAG IVPB ×2 (00:18→09:48)
[2023-10-13] MEDS: SODIUM CHLORIDE 0.9% IV 1,000 ML 125 ML IV CONT (00:18)
[2023-10-13 02:51] VITALS: TEMP 36.1
[2023-10-13 05:54] LABS: Basophils Percent Auto 0.1 % (0.2-1.2); Hematocrit 33.7 % (37.0-47.0); Hemoglobin 10.4 g/dL (12.0-15.0); Immature Granulocyte Percent A 0.6 % (0-0.5); Lymphocytes Percent Auto 6.5 % (18.3-44.2); Mean Corpuscular HGB Conc 30.9 g/dl (32-36); Mean Corpuscular Hemoglobin 31.3 pg (26-34); Mean Corpuscular Volume 101.5 fl (80-100); Mean Platelet Volume 11.8 fl (7.4-10.4); Monocytes Absolute Auto 1.1 K/mm3 (0.1-0.6); Monocytes Percent Auto 7.1 % (2.6-8.5); Neutrophils Absolute Auto 13.3 K/mm3 (1.3-6.7); Neutrophils Percent Auto 85.7 % (45.5-73.1); Platelet Count Result 142 k/mm3 (150-375); Red Blood Count 3.32 M/mm3 (4.2-5.4); Red Cell Distribution Width 15.6 % (11.5-14.5); White Blood Count 15.5 K/mm3 (4.5-10.0)
[2023-10-13 06:04] LABS: Anion Gap 7 mmol/L (8-16); Blood Urea Nitrogen 28 mg/dL (7-17); Calcium 7.3 mg/dL (8.4-10.2); Carbon Dioxide 24 mmol/L (22-30); Chloride 106 mmol/L (98-107); Estimated CRCL calculation 30 ml/min; Estimated Glomerular Filt Rate 52; Glucose 119 mg/dL (65-110); Potassium 3.9 mmol/L (3.4-5.0); Sodium 137 mmol/L (137-145)
[2023-10-13 07:00] VITALS: BP 110/64; RESP 20; TEMP 36.6; O2SAT 98
--- NOTE | 2023-10-13 08:19 | PCPTNOTE ---
Attempted PT evaluation, pt immediately stated I don't want any. When pt was asked what she does not want pt yelling out, but therapist was not able to understand what the pt was saying (expressive aphasia like language). Attempted to reposition pt due to L LE crossing midline, but pt became agitated and refusing therapist to reposition pt. RN notified.
--- NOTE | 2023-10-13 09:12 | PM.IMPN ---
Progress Note: A&P Assessment and Plan (1) Closed subcapital fracture of left femur: Code(s): S72.012A - Unspecified intracapsular fracture of left femur, initial encounter for closed fracture Status: Acute Assessment and Plan: She has a left subcapital hip fracture and she is being admitted for pain control and consult with Dr. Rivero. Orthopedics consulted. Analgesics as needed. PT, OT and DVT prophylaxis per Orthopedic team. (2) Leukocytosis: Code(s): D72.829 - Elevated white blood cell count, unspecified Status: Acute Assessment and Plan: Patient presented with a white blood cell count of 13.4. This is since resolved (3) Anxiety: Code(s): F41.9 - Anxiety disorder, unspecified Status: Acute Assessment and Plan: home medications as needed (4) Hypertension: Code(s): I10 - Essential (primary) hypertension Status: Acute Assessment and Plan: home medications (5) Constipation: Code(s): K59.00 - Constipation, unspecified Status: Acute Assessment and Plan: p.r.n. MiraLax Time Spent With Patient Time with patient: 15 - 25 minutes Subjective Date/time seen: 10/13/23 09:12 Interval history: 10/11:? Patient doing well today mental status is at baseline.? Plan for surgery tomorrow at 9:00 a.m..? PT OT and DVT prophylaxis per Orthopedics.? Patient is not complaining of any pain at this time. 10/12: ? patient returned from surgery at 4:00 p.m.? Patient confused, hallucinating.? Patient able to state her 1st name but on her last and does not answer any other questions.? Does not follow simple commands.? He is alert and pleasant and appears in no acute distress.? Family at bedside. 10/13: Today on rounding patient is sitting in Fowlers position watching TV and visiting with her grandson. Pleasant affect. Alert and oriented to person only. Denies any c/o pain. Grandson and care provider states this is close to her baseline mental status. VS and labwork stable. Review of Systems Review of Systems: ROS unobtainable: Yes unobtainable due to mental status (history of dementia) Exam Narrative: Pt is alert and oriented to person only. Appears in no acute distress. Const: General: comfortable and no acute distress HENMT: Face/Nose/Sinus: Normal nares present Mouth: Yes moist mucous membranes Eyes: General: appearance normal, both eyes and all related structures Sclera: sclerae normal Pupils: Equal, round and reactive pupils present EOM: EOMs intact bilaterally Neck: Neck: supple and no JVD Resp: Effort & Inspection: normal respiratory effort Auscultation: clear to auscultation bilaterally Cardio: Rate: regular rate Rhythm: regular rhythm Other: No murmur, rub, or gallop noted GI: Other: Abdomen soft, nontender to palpation with bowel sounds present x 4 quadrants Skin: General skin exam: normal color and no rashes or lesions noted Other: Ecchymosis present to left medial and lateral foot/ankle. Dressing to left lateral thigh dry and intact. Neuro: Speech: normal speech Motor exam (neuro): Normal motor muscle tone present throughout Sensory Exam: normal sensation Extrem: General: normal to inspection Other: Bilateral pedal and posterior tibial pulses palpable and equal without edema Psych: Affect: normal affect Other: Pt is pleasant and jovial with confusion Objective Data Vital Signs Vital Signs: Vital Signs - 24 hr 10/12/23 14:17 10/12/23 14:30 10/12/23 14:45 Temperature 97.3 F L Pulse Rate 111 H 110 H 109 H Respiratory Rate 16 20 16 Blood Pressure 134/86 136/67 Pulse Oximetry 99 96 94 Oxygen Delivery Simple Face Mask Room Air Room Air Oxygen Flow Rate 8 10/12/23 15:00 10/12/23 15:09 10/12/23 15:40 Temperature 97.8 F Pulse Rate 103 H 104 H 103 H Respiratory Rate 16 20 20 Blood Pressure 115/83 104/75 101/58 L Pulse Oximetry 93 9
[2023-10-13 09:47] VITALS: PULSE 125; O2SAT 97
[2023-10-13] MEDS: busPIRone HCL 5 MG TABLET 15 MG PO (09:48)
[2023-10-13] MEDS: FAMOTIDINE 20 MG TABLET PO ×2 (09:48→20:46)
[2023-10-13] MEDS: SERTRALINE HCL 50 MG TABLET 100 MG PO (09:48)
[2023-10-13] MEDS: CELECOXIB 200 MG CAPSULE PO (09:48)
[2023-10-13] MEDS: SENNA/DOCUSATE SODIUM TABLET 2 TAB PO ×2 (09:49→17:28)
[2023-10-13] MEDS: ENOXAPARIN 40 MG/0.4 ML SYRINGE SUB-Q (09:49)
[2023-10-13] MEDS: ACETAMINOPHEN 325 MG TABLET 650 MG PO ×2 (09:51→17:29)
--- NOTE | 2023-10-13 11:43 | WPDANESPN ---
Anes - Prog Note Post-Op Date/Time: 10/13/23 11:43 Cardiovascular status: normal Respiratory status: normal Airway patency: baseline Mental status: baseline Post-Op hydration status: normal Vital Signs: Last Vital Signs Temp 97.8 F 10/13/23 07:00 Pulse 125 H 10/13/23 09:47 Resp 20 10/13/23 07:00 BP 110/64 10/13/23 07:00 Pulse Ox 97 10/13/23 09:47 O2 Del Method Room Air 10/12/23 15:40 O2 Flow Rate 8 10/12/23 14:17 Pain Score (VAS): 0/10 I/O: Intake & Output 10/12/23 10/13/23 10/13/23 23:59 07:59 15:59 Intake Total 1050 170 240 Output Total 800 Balance 1050 -630 240 Laboratory Tests 10/13/23 05:35 10/13/23 05:35 10/09/23 10/12/23 10/13/23 14:28 14:50 05:35 WBC 15.5 H RBC 3.32 L Hgb 13.7 10.4 L D Hct 43.4 33.7 L MCV 101.5 H MCH 31.3 MCHC 30.9 L RDW 15.6 H Plt Count 142 L MPV 11.8 H Immature Gran % (Auto) 0.6 H Neut % (Auto) 85.7 H Lymph % (Auto) 6.[address] [place] % (Auto) 7.1 Eos % (Auto) 0.0 Baso % (Auto) 0.1 L Lymph # (Auto) 1.00 [place] # (Auto) 1.1 H Eos # (Auto) 0.0 Baso # (Auto) 0.0 Abs Immat Gran (auto) 0.10 H Absolute Neuts (auto) 13.3 H Absolute Nucleated RBC 0.0 Nucleated RBC % 0.0 Sodium 137 Potassium 3.9 Chloride 106 Carbon Dioxide 24 Anion Gap 7 L BUN 28 H Creatinine 1.00 Estim Creat Clear Calc 30 Estimated GFR 52 L Glucose 119 H Calcium 7.3 L Blood Type O Positive Antibody Screen Negative Crossmatch See Detail Post-procedural complaints: none Patient Feedback: Patient satisfied with anesthetic care.
[2023-10-13 12:14] VITALS: BP 122/63; PULSE 104; RESP 18; TEMP 36.3; O2SAT 92
[2023-10-13] MEDS: CALCIUM GLUC 1,000 MG/NS 50 ML 1,000 MG/50 ML BAG 100 MG IVPB (13:09)
--- NOTE | 2023-10-13 15:59 | PM.PNORT ---
Progress Note: A&P Assessment and Plan (1) Left displaced femoral neck fracture: Code(s): S72.002A - Fracture of unspecified part of neck of left femur, initial encounter for closed fracture Status: Acute Assessment and Plan: POD #1 : LEFT HIP HEMIARTHROPLASTY WITH BIPOLAR PROSTHESIS Continue PT/OT. TTWB LLE. Walker. HIGH FALL RISK. Continue pain control. Ice Hip. Protect skin. DVT prophylaxis with Lovenox. SCDs. Incentive Spirometry Use reviewed, difficult time grasping concept due to mental status. Monitor Dressing. Change prior to discharge. Bowel Regimen. Dispo: SNF pending progress with PT/OT and medical clearance. Subjective Subjective Date/Time Seen: 10/13/23 15:59 Post Op day: 1 Interval history: POD #1: LEFT HIP HEMIARTHROPLASTY WITH BIPOLAR PROSTHESIS Patient A&Ox1. Confused. Pleasant. Working on [employer]. Denies left hip pain. Review of Systems Review of Systems: ROS unobtainable: Yes unobtainable due to mental status Exam Resp: Effort & Inspection: normal respiratory effort Cardio: Rate: regular rate Rhythm: regular rhythm GI: Inspection: non-distended Skin: General skin exam: normal color and wounds noted (incision left hip C/D/I ) Wounds: wounds noted (incision left hip C/D/I ) Neuro: General: patient oriented x3 Extrem: Left lower extremity: hip/thigh Details: tenderness Location: of the hip Location: laterally and anteriorly, swelling (thigh soft ) Location: of the hip (lateral. ), abnormal ROM (limitations with internal/external rotation and flexion/extension due to recent surgical intervention ) and other (incision lateral hip c/d/i. ), knee Details: normal to inspection and normal ROM; no tenderness and no swelling, lower leg (Negative Juan Antonio's Sign ) Details: no edema, ankle (+ankle dorsiflexion/plantarflexion ) Details: normal to inspection, no edema and normal ROM; no tenderness, no swelling and no warmth and foot Details: normal capillary refill, toes with normal ROM, vascular exam Details: dorsalis pedis pulse present and motor-sensory exam light-touch normal in all toes; no tenderness, no ecchymosis and no crepitus Psych: Mental Status: mental status grossly normal Affect: normal affect Objective Data Vital Signs Vital Signs: Vital Signs - 24 hr 1227/23 16:10 10/12/23 22:24 10/13/23 02:51 Temperature 36.8 C 36.2 C L 36.1 C L Pulse Rate 98 110 H Respiratory Rate 18 20 Blood Pressure 109/61 105/75 Pulse Oximetry 92 98 Oxygen Delivery 10/13/23 07:00 10/13/23 09:47 10/13/23 09:30 Temperature 36.6 C Pulse Rate 125 H Respiratory Rate 20 Blood Pressure 110/64 Pulse Oximetry 98 97 Oxygen Delivery Room Air 10/13/23 12:14 10/13/23 14:16 Temperature 36.3 C L Pulse Rate 104 H Respiratory Rate 18 Blood Pressure 122/63 Pulse Oximetry 92 Oxygen Delivery Room Air Intake/Output Intake/Output: Intake & Output 10/10/23 10/11/23 10/12/23 10/13/23 23:59 23:59 23:59 23:59 Intake Total 017 278 3559 750 Output Total 250 800 Balance 861 162 2601 -50 Meds/Results Medications: Active Medications Generic Name Dose Route Start Last Admin Trade Name Freq PRN Reason Stop Dose Admin Acetaminophen 650 mg 10/12/23 09:06 10/13/23 09:51 Acetaminophen 325 Mg Tablet PO 650 mg Q6H PRN Administration Mild Pain (1-3) or Fever Hydrocodone Bitart/Acetaminophen 1 tab 10/09/23 16:41 10/11/23 06:34 Hydrocodone/Acetaminophen (*Crx) 5-325 Mg Tablet PO 1 tab Q4H PRN Administration Pain Rated 4-6 Hydrocodone Bitart/Acetaminophen 2 tab 10/12/23 09:06 Hydrocodone/Acetaminophen (*Crx) 7.5-325 Mg Tablet PO Q6H PRN Pain Rated 7-10 Hydrocodone Bitart/Acetaminophen 1 tab 10/12/23 09:06 10/12/23 20:35 Hydrocodone/Acetaminophen (*Crx) 7.5-325 Mg Tablet PO 1 tab Q3H PRN Administration Pain Rated 4-6 Buspirone HCl 15 mg 10/10/23 09:00 10/13/23 09:48 Buspirone Hcl 5 Mg
[2023-10-13] MEDS: HYDROcodone/acetaminophen (*CRX) 7.5-325 MG TABLET 1 TAB PO (20:45)
[2023-10-13] MEDS: diazePAM (*CRX) 5 MG TABLET PO (20:45)
[2023-10-13] MEDS: TIZANIDINE HCL 2 MG TABLET PO (20:46)
[2023-10-13] MEDS: LOVASTATIN 20 MG TABLET PO (20:46)
[2023-10-13 20:52] VITALS: BP 109/60; RESP 20; TEMP 36.7
[2023-10-14 04:33] VITALS: BP 103/54; PULSE 99; RESP 16; TEMP 36.6; O2SAT 93
--- NOTE | 2023-10-14 08:15 | PCPTNOTE ---
Attempted to see patient for PT, however patient sound asleep and did not want to wake up to participate with therapy.
[2023-10-14] MEDS: CELECOXIB 200 MG CAPSULE PO (09:08)
[2023-10-14] MEDS: busPIRone HCL 5 MG TABLET 15 MG PO (09:10)
[2023-10-14] MEDS: SENNA/DOCUSATE SODIUM TABLET 2 TAB PO ×2 (09:10→16:53)
[2023-10-14] MEDS: SERTRALINE HCL 50 MG TABLET 100 MG PO (09:10)
[2023-10-14] MEDS: FAMOTIDINE 20 MG TABLET PO ×2 (09:10→20:24)
[2023-10-14] MEDS: ENOXAPARIN 40 MG/0.4 ML SYRINGE SUB-Q (09:11)
[2023-10-14] MEDS: polyethylene glycoL 3350 17 GM POWD.PACK PO (09:11)
[2023-10-14 11:17] LABS: Basophils Percent Auto 0.2 % (0.2-1.2); Eosinophils Absolute Auto 0.1 K/mm3 (0-0.3); Eosinophils Percent Auto 0.7 % (0-4.4); Hematocrit 33.2 % (37.0-47.0); Hemoglobin 10.3 g/dL (12.0-15.0); Immature Granulocyte Absolute 0.06 K/mm3 (0.00-0.031); Immature Granulocyte Percent A 0.5 % (0-0.5); Lymphocytes Percent Auto 6.1 % (18.3-44.2); Mean Platelet Volume 11.7 fl (7.4-10.4); Monocytes Absolute Auto 0.8 K/mm3 (0.1-0.6); Monocytes Percent Auto 6.6 % (2.6-8.5); Neutrophils Absolute Auto 9.9 K/mm3 (1.3-6.7); Neutrophils Percent Auto 85.9 % (45.5-73.1); Platelet Count Result 166 k/mm3 (150-375); Red Blood Count 3.32 M/mm3 (4.2-5.4); Red Cell Distribution Width 15.2 % (11.5-14.5); White Blood Count 11.5 K/mm3 (4.5-10.0)
[2023-10-14 11:28] LABS: Alanine Aminotransferase 12 U/L (6-35); Alkaline Phosphatase 71 U/L (38-126); Aspartate Amino Transferase 46 U/L (14-36); Bilirubin,Total 0.6 mg/dL (0.2-1.3)
--- NOTE | 2023-10-14 11:34 | PM.PNORT ---
Progress Note: A&P Assessment and Plan (1) Left displaced femoral neck fracture: Code(s): S72.002A - Fracture of unspecified part of neck of left femur, initial encounter for closed fracture Status: Acute Assessment and Plan: POD #2: LEFT HIP HEMIARTHROPLASTY WITH BIPOLAR PROSTHESIS Continue PT/OT. TTWB LLE. Walker. HIGH FALL RISK. Continue pain control. Ice Hip. Protect skin. DVT prophylaxis with Lovenox. SCDs. Incentive Spirometry Use reviewed, difficult time grasping concept due to mental status. Monitor Dressing. Change prior to discharge. Bowel Regimen. Dispo: SNF pending progress with PT/OT and medical clearance. Subjective Subjective Date/Time Seen: 10/14/23 11:34 Post Op day: 2 Interval history: POD #2: LEFT HIP HEMIARTHROPLASTY WITH BIPOLAR PROSTHESIS Patient A&Ox1. Confused. Pleasant. Pain with palpation only but comfortable in bed. Review of Systems Review of Systems: ROS unobtainable: Yes unobtainable due to mental status Exam Resp: Effort & Inspection: normal respiratory effort Cardio: Rate: regular rate Rhythm: regular rhythm GI: Inspection: non-distended Skin: General skin exam: normal color and wounds noted (incision left hip C/D/I ) Wounds: wounds noted (incision left hip C/D/I ) Neuro: General: patient oriented x3 Extrem: Left lower extremity: hip/thigh Details: tenderness Location: of the hip Location: laterally and anteriorly, swelling (thigh soft ) Location: of the hip (lateral. ), abnormal ROM (limitations with internal/external rotation and flexion/extension due to recent surgical intervention ) and other (incision lateral hip c/d/i. ), knee Details: normal to inspection and normal ROM; no tenderness and no swelling, lower leg (Negative Juan Antonio's Sign ) Details: no edema, ankle (+ankle dorsiflexion/plantarflexion ) Details: normal to inspection, no edema and normal ROM; no tenderness, no swelling and no warmth and foot Details: normal capillary refill, toes with normal ROM, vascular exam Details: dorsalis pedis pulse present and motor-sensory exam light-touch normal in all toes; no tenderness, no ecchymosis and no crepitus Psych: Mental Status: mental status grossly normal Affect: normal affect Objective Data Vital Signs Vital Signs: Vital Signs - 24 hr 10/13/23 12:14 10/13/23 14:16 10/13/23 20:52 Temperature 36.3 C L 36.7 C Pulse Rate 104 H Respiratory Rate 18 20 Blood Pressure 122/63 109/60 Pulse Oximetry 92 Oxygen Delivery Room Air 10/13/23 20:00 10/14/23 04:33 10/14/23 09:00 Temperature 36.6 C Pulse Rate 99 Respiratory Rate 16 Blood Pressure 103/54 L Pulse Oximetry 93 Oxygen Delivery Room Air Room Air Intake/Output Intake/Output: Intake & Output 10/11/23 10/12/23 10/13/23 10/14/23 23:59 23:59 23:59 23:59 Intake Total 720 1800 1230 200 Output Total 250 1100 250 Balance 720 1550 130 -50 Meds/Results Medications: Active Medications Generic Name Dose Route Start Last Admin Trade Name Freq PRN Reason Stop Dose Admin Acetaminophen 650 mg 10/12/23 09:06 10/13/23 17:29 Acetaminophen 325 Mg Tablet PO 650 mg Q6H PRN Administration Mild Pain (1-3) or Fever Hydrocodone Bitart/Acetaminophen 1 tab 10/09/23 16:41 10/11/23 06:34 Hydrocodone/Acetaminophen (*Crx) 5-325 Mg Tablet PO 1 tab Q4H PRN Administration Pain Rated 4-6 Hydrocodone Bitart/Acetaminophen 2 tab 10/12/23 09:06 Hydrocodone/Acetaminophen (*Crx) 7.5-325 Mg Tablet PO Q6H PRN Pain Rated 7-10 Hydrocodone Bitart/Acetaminophen 1 tab 10/12/23 09:06 10/13/23 20:45 Hydrocodone/Acetaminophen (*Crx) 7.5-325 Mg Tablet PO 1 tab Q3H PRN Administration Pain Rated 4-6 Buspirone HCl 15 mg 10/10/23 09:00 10/14/23 09:10 Buspirone Hcl 5 Mg Tablet PO 15 mg DAILY DORITA Administration Celecoxib 200 mg 10/13/23 08:00 10/14/23 09:08 Celecoxib 200 Mg Capsule PO 200 mg DAILY@0800 DORITA Admin
--- NOTE | 2023-10-14 12:57 | PM.IMPN ---
Progress Note: A&P Assessment and Plan (1) Closed subcapital fracture of left femur: Code(s): S72.012A - Unspecified intracapsular fracture of left femur, initial encounter for closed fracture Status: Acute Assessment and Plan: S/p LEFT HIP HEMIARTHROPLASTY WITH BIPOLAR PROSTHESIS -POD 2 -Continue PT and OT -awaiting insurance auth. Spoke with CC who states it could be 48 hours until they hear back -Analgesics as needed. -lovenox for dvt ppx (2) Leukocytosis: Code(s): D72.829 - Elevated white blood cell count, unspecified Status: Acute Assessment and Plan: Improving -likely reactionary due to fall -afebrile (3) Hypertension: Code(s): I10 - Essential (primary) hypertension Status: Acute Assessment and Plan: last bp 103/54 -unclear hx if pt has htn -not on any bp medications at this time -monitor (4) Constipation: Code(s): K59.00 - Constipation, unspecified Status: Acute Assessment and Plan: p.r.n. MiraLax (5) Elevated liver enzymes: Code(s): R74.8 - Abnormal levels of other serum enzymes Status: Acute Assessment and Plan: Noted on admission -impoving and almost normalized -no further w/u since improved. If it worsens consider addtional w/u -son states she has no hx of liver disease (6) Dementia: Code(s): F03.90 - Unspecified dementia, unspecified severity, without behavioral disturbance, psychotic disturbance, mood disturbance, and anxiety Status: Acute Assessment and Plan: Pt is a little worse than baseline but has significant dementia per son Time Spent With Patient Time with patient: 25 - 35 minutes Subjective Date/time seen: 10/14/23 12:57 Interval history: Pt is a 88-year-old female here for hip fracture. Patient is significantly demented and does not answer questions. No events overnight per nursing staff. I spoke with the son who states her memory has been pretty bad lately and a little worse since being hospitalized overall about the same. He lives with her because they cannot afford memory care. Review of Systems Review of Systems: All systems reviewed & are unremarkable except as noted in HPI and below Exam Narrative: General: Well developed well nourished patient in NAD HEENT: normocephalic Neck: supple Neuro: Alert and oriented x 0. Does not follow all commands. Does move all 4 extremities spontaneously CV:RRR Resp:CTA with limited auscultation due to command following Abd: Soft, non distended. No pain to palpation. Positive bowel sounds. Mcmullen bag with yellow urine Extremities: Left hip fracture, bandage clean and dry without excessive erythema or bleeding. Pedal pulses intact. No significant swelling to the lower extremities Objective Data Vital Signs Vital Signs: Vital Signs - 24 hr 10/13/23 14:16 10/13/23 20:52 10/13/23 20:00 Temperature 98.1 F Pulse Rate Respiratory Rate 20 Blood Pressure 109/60 Pulse Oximetry Oxygen Delivery Room Air Room Air 10/14/23 04:33 10/14/23 09:00 Temperature 98 F Pulse Rate 99 Respiratory Rate 16 Blood Pressure 103/54 L Pulse Oximetry 93 Oxygen Delivery Room Air Intake/Output Intake/Output: Intake & Output 10/11/23 10/12/23 10/13/23 10/14/23 23:59 23:59 23:59 23:59 Intake Total 720 1800 1230 600 Output Total 250 1100 250 Balance 720 1550 130 350 Meds/Results Medications: Active Medications Generic Name Dose Route Start Last Admin Trade Name Freq PRN Reason Stop Dose Admin Acetaminophen 650 mg 10/12/23 09:06 10/13/23 17:29 Acetaminophen 325 Mg Tablet PO 650 mg Q6H PRN Administration Mild Pain (1-3) or Fever Hydrocodone Bitart/Acetaminophen 1 tab 10/09/23 16:41 10/11/23 06:34 Hydrocodone/Acetaminophen (*Crx) 5-325 Mg Tablet PO 1 tab Q4H PRN Administration Pain Rated 4-6 Hydrocodone Bitart/Aceta
--- NOTE | 2023-10-14 13:45 | PCOTNOTE ---
Attempted to pick up worker OT session from the DECORATOR MANNEQUIN at this time. DECORATOR MANNEQUIN had Patient returning back to bed. Patient was not following good positioning with her affected LE. DIRECT MARKETING EXECUTIVE attempted to assist in educating in positioning with Patient and her son at this time. Patient was stating she was having increased pain ad would not allow her leg to be moved. Patient resistive to all attempts and refused to practicing any additional services at this time. Patient's son attempted to convince her to work with therapy, she refused. He stated she is like this at home as well.
[2023-10-14 15:06] VITALS: BP 121/63; PULSE 68; RESP 20; TEMP 36.8; O2SAT 97
[2023-10-14] MEDS: HYDROcodone/acetaminophen (*CRX) 5-325 MG TABLET 1 TAB PO (17:50)
[2023-10-14 20:00] VITALS: PULSE 75; RESP 20; O2SAT 98
[2023-10-14] MEDS: ACETAMINOPHEN 325 MG TABLET 650 MG PO (20:24)
[2023-10-14] MEDS: LOVASTATIN 20 MG TABLET PO (20:24)
[2023-10-14] MEDS: TIZANIDINE HCL 2 MG TABLET PO (20:24)
[2023-10-14 21:49] VITALS: BP 125/62; PULSE 75; RESP 20; TEMP 36.5; O2SAT 98
[2023-10-15 06:41] LABS: Hematocrit 30.2 % (37.0-47.0); Hemoglobin 9.2 g/dL (12.0-15.0); Mean Corpuscular HGB Conc 30.5 g/dl (32-36); Mean Corpuscular Hemoglobin 31.3 pg (26-34); Mean Corpuscular Volume 102.7 fl (80-100); Mean Platelet Volume 11.8 fl (7.4-10.4); Platelet Count Result 181 k/mm3 (150-375); Red Blood Count 2.94 M/mm3 (4.2-5.4); Red Cell Distribution Width 15.1 % (11.5-14.5); White Blood Count 10.3 K/mm3 (4.5-10.0)
[2023-10-15 07:00] LABS: Anion Gap 7 mmol/L (8-16); Blood Urea Nitrogen 36 mg/dL (7-17); Calcium 8.1 mg/dL (8.4-10.2); Carbon Dioxide 22 mmol/L (22-30); Chloride 113 mmol/L (98-107); Estimated CRCL calculation 33 ml/min; Estimated Glomerular Filt Rate 59; Glucose 85 mg/dL (65-110); Potassium 5.5 mmol/L (3.4-5.0); Sodium 142 mmol/L (137-145)
--- NOTE | 2023-10-15 09:19 | PM.IMPN ---
Progress Note: A&P Assessment and Plan (1) Closed subcapital fracture of left femur: Code(s): S72.012A - Unspecified intracapsular fracture of left femur, initial encounter for closed fracture Status: Acute Assessment and Plan: S/p LEFT HIP HEMIARTHROPLASTY WITH BIPOLAR PROSTHESIS -POD 3 -Continue PT and OT - doing well with ot this am. -awaiting insurance auth for placement. -Analgesics as needed. -lovenox for dvt ppx (2) Leukocytosis: Code(s): D72.829 - Elevated white blood cell count, unspecified Status: Acute Assessment and Plan: Improving -likely reactionary due to fall (3) Hypertension: Code(s): I10 - Essential (primary) hypertension Status: Acute Assessment and Plan: Stable and within normal range generally. (4) Constipation: Code(s): K59.00 - Constipation, unspecified Status: Acute Assessment and Plan: Cont. prn miralax. (5) Elevated liver enzymes: Code(s): R74.8 - Abnormal levels of other serum enzymes Status: Acute Assessment and Plan: - Basically normalized. (6) Dementia: Code(s): F03.90 - Unspecified dementia, unspecified severity, without behavioral disturbance, psychotic disturbance, mood disturbance, and anxiety Status: Acute Assessment and Plan: - Significant dementia and sometimes combative but the combativeness is improved today. (7) Hyperkalemia: Code(s): E87.5 - Hyperkalemia Status: Acute Assessment and Plan: - K 5.5 today. Encourage to push fluids. Low K diet. Time Spent With Patient Time with patient: 25 - 35 minutes Subjective Date/time seen: 10/15/23 09:19 Interval history: Pt is a 88-year-old female here with left hip fracture. The son, Ronaldo, is present during the visit today. Per nursing it was a good morning and patient was not combative. Review of Systems Review of Systems: All systems reviewed & are unremarkable except as noted in HPI and below Exam Narrative: GENERAL APPEARANCE: Appears to be in no acute distress. HEAD: normocephalic atraumatic ENT: Hearing grossly intact, no nasal discharge NECK: Neck supple, trachea midline. CARDIAC: Normal S1/S2. Rhythm is regular, slightly tachycardic.. No murmurs, rubs, or gallops. No cyanosis or pallor. Extremities are warm and well perfused. LUNGS: Clear to auscultation without rales, rhonchi, wheezing or diminished breath sounds. Respirations even and unlabored. ABDOMEN: BS positive x 4 quadrants. Soft, nondistended, nontender. No guarding or rebound. MSK: No joint tenderness/swelling, fair strength in all extremities. PERIPHERAL VASCULAR: Peripheral pulses palpable. Normal perfusion, cap refill <2 seconds. No edema. NEURO: Follows commands. No focal deficits. SKIN: [place] without lesions or eruptions. Objective Data Vital Signs Vital Signs: Vital Signs - 24 hr 10/14/23 15:06 10/14/23 21:49 10/14/23 20:00 Temperature 98.2 F 97.7 F Pulse Rate 68 75 75 Respiratory Rate 20 20 20 Blood Pressure 121/63 125/62 Pulse Oximetry 97 98 98 Oxygen Delivery Room Air Intake/Output Intake/Output: Intake & Output 10/12/23 10/13/23 10/14/23 10/15/23 23:59 23:59 23:59 23:59 Intake Total 1800 1230 1080 Output Total 250 1100 375 Balance 1550 130 705 Meds/Results Medications: Active Medications Generic Name Dose Route Start Last Admin Trade Name Freq PRN Reason Stop Dose Admin Acetaminophen 650 mg 10/12/23 09:06 10/14/23 20:24 Acetaminophen 325 Mg Tablet PO 650 mg Q6H PRN Administration Mild Pain (1-3) or Fever Hydrocodone Bitart/Acetaminophen 1 tab 10/09/23 16:41 10/14/23 17:50 Hydrocodone/Acetaminophen (*Crx) 5-325 Mg Tablet PO 1 tab Q4H PRN Administration Pain Rated 4-6 Hydrocodone Bitart/Acetaminophen 2 tab 10/12/23 09:06 Hydrocodone/Acetaminophen (*Crx) 7.5-325 Mg Tablet PO Q6H PRN Pain Rated 7-10
[2023-10-15] MEDS: FAMOTIDINE 20 MG TABLET PO ×2 (09:25→21:31)
[2023-10-15] MEDS: SERTRALINE HCL 50 MG TABLET 100 MG PO (09:25)
[2023-10-15] MEDS: CELECOXIB 200 MG CAPSULE PO (09:25)
[2023-10-15] MEDS: polyethylene glycoL 3350 17 GM POWD.PACK PO (09:25)
[2023-10-15] MEDS: SENNA/DOCUSATE SODIUM TABLET 2 TAB PO ×2 (09:26→17:43)
[2023-10-15] MEDS: busPIRone HCL 5 MG TABLET 15 MG PO (09:26)
[2023-10-15] MEDS: ENOXAPARIN 40 MG/0.4 ML SYRINGE SUB-Q (09:27)
[2023-10-15 14:25] VITALS: BP 96/65; PULSE 100; RESP 18; TEMP 37.1; O2SAT 100
[2023-10-15 19:44] VITALS: PULSE 100; RESP 18; O2SAT 100
[2023-10-15] MEDS: LOVASTATIN 20 MG TABLET PO (21:31)
[2023-10-15] MEDS: diazePAM (*CRX) 5 MG TABLET PO (21:31)
[2023-10-15] MEDS: TIZANIDINE HCL 2 MG TABLET PO (21:31)
[2023-10-15] MEDS: HYDROcodone/acetaminophen (*CRX) 5-325 MG TABLET 1 TAB PO (21:32)
[2023-10-15 21:56] VITALS: BP 122/69; PULSE 64; RESP 20; TEMP 36.9; O2SAT 99
[2023-10-16 06:09] LABS: Anion Gap 7 mmol/L (8-16); Blood Urea Nitrogen 29 mg/dL (7-17); Calcium 8.1 mg/dL (8.4-10.2); Carbon Dioxide 25 mmol/L (22-30); Chloride 107 mmol/L (98-107); Estimated CRCL calculation 42 ml/min; Estimated Glomerular Filt Rate > 60; Glucose 103 mg/dL (65-110); Sodium 139 mmol/L (137-145)
[2023-10-16] MEDS: SENNA/DOCUSATE SODIUM TABLET 2 TAB PO ×2 (10:04→17:48)
[2023-10-16] MEDS: ENOXAPARIN 40 MG/0.4 ML SYRINGE SUB-Q (10:05)
[2023-10-16] MEDS: SERTRALINE HCL 50 MG TABLET 100 MG PO (10:05)
[2023-10-16] MEDS: FAMOTIDINE 20 MG TABLET PO ×2 (10:05→20:56)
[2023-10-16] MEDS: CELECOXIB 200 MG CAPSULE PO (10:05)
[2023-10-16] MEDS: busPIRone HCL 5 MG TABLET 15 MG PO (10:05)
[2023-10-16] MEDS: polyethylene glycoL 3350 17 GM POWD.PACK PO (10:06)
--- NOTE | 2023-10-16 11:26 | PM.IMPN ---
Progress Note: A&P Assessment and Plan (1) Closed subcapital fracture of left femur: Code(s): S72.012A - Unspecified intracapsular fracture of left femur, initial encounter for closed fracture Status: Acute Assessment and Plan: S/p LEFT HIP HEMIARTHROPLASTY WITH BIPOLAR PROSTHESIS -POD 4 -Continue PT and OT - doing well with pt this am after getting her legs straightened -awaiting insurance auth for placement. -Analgesics as needed. -lovenox for dvt ppx for 28 days total, last dose 11/09/23 (2) Leukocytosis: Code(s): D72.829 - Elevated white blood cell count, unspecified Status: Acute Assessment and Plan: Improving -likely reactionary due to fall/surgery (3) Hypertension: Code(s): I10 - Essential (primary) hypertension Status: Acute Assessment and Plan: Stable and within normal range generally. (4) Constipation: Code(s): K59.00 - Constipation, unspecified Status: Acute Assessment and Plan: Cont. prn miralax. (5) Elevated liver enzymes: Code(s): R74.8 - Abnormal levels of other serum enzymes Status: Acute Assessment and Plan: - Basically normalized. (6) Dementia: Code(s): F03.90 - Unspecified dementia, unspecified severity, without behavioral disturbance, psychotic disturbance, mood disturbance, and anxiety Status: Acute Assessment and Plan: - Significant dementia and sometimes combative but the combativeness is improved today. (7) Hyperkalemia: Code(s): E87.5 - Hyperkalemia Status: Acute Assessment and Plan: Potassium 4.0 on a.m. labs this morning, was 5.5 yesterday, low potassium diet Plan Awaiting insurance authorization for SNF Time Spent With Patient Time with patient: 25 - 35 minutes Subjective Date/time seen: 10/16/23 11:26 Interval history: Pt is a 88-year-old female here with left hip fracture. PT noted patient's left leg bent underneath her right leg this morning. She appeared to have swelling in left hip with dependent bruising but did well with transfer to chair and seemed to have normal hip appearance and no pain when sitting in chair. Per nursing patient was combative last night but is doing well this morning. Review of Systems Review of Systems: ROS unobtainable: Yes unobtainable due to mental status (history of dementia) Exam Narrative: GENERAL APPEARANCE: Appears to be in no acute distress. HEAD: normocephalic atraumatic ENT: Hearing grossly intact, no nasal discharge NECK: Neck supple, trachea midline. CARDIAC: Normal S1/S2. Rhythm is regular, slightly tachycardic.. No murmurs, rubs, or gallops. No cyanosis or pallor. Extremities are warm and well perfused. LUNGS: Clear to auscultation without rales, rhonchi, wheezing or diminished breath sounds. Respirations even and unlabored. ABDOMEN: BS positive x 4 quadrants. Soft, nondistended, nontender. No guarding or rebound. MSK: Left hip dressing clean dry and intact with some local bruising, dependent bruising in lower leg and foot is more apparent. PERIPHERAL VASCULAR: Peripheral pulses palpable. Normal perfusion, cap refill <2 seconds. No edema. NEURO: Follows commands. No focal deficits. SKIN: [place] without lesions or eruptions. Objective Data Vital Signs Vital Signs: Vital Signs - 24 hr 10/15/23 14:25 10/15/23 19:44 10/15/23 21:56 Temperature 37.1 C 36.9 C Pulse Rate 100 100 64 Respiratory Rate 18 18 20 Blood Pressure 96/65 L 122/69 Pulse Oximetry 100 100 99 Oxygen Delivery Room Air Intake/Output Intake/Output: Intake & Output 10/13/23 10/14/23 10/15/23 10/16/23 23:59 23:59 23:59 23:59 Intake Total 1230 1080 720 240 Output Total 1100 375 Balance 130 705 720 240 Meds/Results Medications: Active Medications Generic Name Dose Route Start Last Admin Trade Name Freq PRN Reason Stop Dose Admin Acetaminophen 650 mg 10/12/23 09:06 10/14/23 20:24
[2023-10-16 15:11] VITALS: BP 125/68; PULSE 86; RESP 20; TEMP 36.6; O2SAT 100
--- NOTE | 2023-10-16 18:02 | PC.NURSE ---
Provider, Dr. Rivero, notified of results of XR of L hip ordered this afternoon.
[2023-10-16] MEDS: CARBAMIDE PEROXIDE 6.5% OT SOLN 15 ML BTL 5 DROP EACH EAR (18:16)
[2023-10-16] MEDS: HYDROcodone/acetaminophen (*CRX) 7.5-325 MG TABLET 1 TAB PO (20:56)
[2023-10-16] MEDS: TIZANIDINE HCL 2 MG TABLET PO (20:56)
[2023-10-16] MEDS: diazePAM (*CRX) 5 MG TABLET PO (20:56)
[2023-10-16] MEDS: LOVASTATIN 20 MG TABLET PO (20:56)
[2023-10-16 22:13] VITALS: BP 106/68; PULSE 112; RESP 20; TEMP 36.9; O2SAT 98
[2023-10-17 06:00] VITALS: BP 114/68; PULSE 119; RESP 18; TEMP 37; O2SAT 95
[2023-10-17 08:43] VITALS: BP 114/82
[2023-10-17 09:11] LABS: Hematocrit 31.4 % (37.0-47.0); Hemoglobin 9.4 g/dL (12.0-15.0); Mean Corpuscular HGB Conc 29.9 g/dl (32-36); Mean Corpuscular Hemoglobin 30.2 pg (26-34); Mean Platelet Volume 10.4 fl (7.4-10.4); Platelet Count Result 257 k/mm3 (150-375); Red Blood Count 3.11 M/mm3 (4.2-5.4); Red Cell Distribution Width 14.7 % (11.5-14.5); White Blood Count 7.5 K/mm3 (4.5-10.0)
[2023-10-17] MEDS: SENNA/DOCUSATE SODIUM TABLET 2 TAB PO (09:16)
[2023-10-17] MEDS: CELECOXIB 200 MG CAPSULE PO (09:16)
[2023-10-17] MEDS: busPIRone HCL 5 MG TABLET 15 MG PO (09:17)
[2023-10-17] MEDS: FAMOTIDINE 20 MG TABLET PO ×2 (09:17→20:10)
[2023-10-17] MEDS: SERTRALINE HCL 50 MG TABLET 100 MG PO (09:17)
[2023-10-17] MEDS: polyethylene glycoL 3350 17 GM POWD.PACK PO (09:18)
[2023-10-17 09:24] LABS: Anion Gap 4 mmol/L (8-16); Blood Urea Nitrogen 22 mg/dL (7-17); Calcium 8.2 mg/dL (8.4-10.2); Carbon Dioxide 28 mmol/L (22-30); Chloride 106 mmol/L (98-107); Estimated CRCL calculation 42 ml/min; Estimated Glomerular Filt Rate > 60; Glucose 101 mg/dL (65-110); Potassium 3.8 mmol/L (3.4-5.0); Sodium 138 mmol/L (137-145)
[2023-10-17] MEDS: ENOXAPARIN 40 MG/0.4 ML SYRINGE SUB-Q (09:25)
[2023-10-17] MEDS: CARBAMIDE PEROXIDE 6.5% OT SOLN 15 ML BTL 5 DROP EACH EAR ×2 (09:27→18:06)
[2023-10-17] MEDS: HYDROcodone/acetaminophen (*CRX) 7.5-325 MG TABLET 1 TAB PO ×2 (09:33→15:19)
--- NOTE | 2023-10-17 15:14 | PM.IMPN ---
Progress Note: A&P Assessment and Plan (1) Closed subcapital fracture of left femur: Code(s): S72.012A - Unspecified intracapsular fracture of left femur, initial encounter for closed fracture Status: Acute Assessment and Plan: S/p LEFT HIP HEMIARTHROPLASTY WITH BIPOLAR PROSTHESIS -POD 5 -Continue PT and OT -awaiting insurance auth for placement. -Analgesics as needed. -lovenox for dvt ppx for 28 days total, last dose 11/09/23 (2) Leukocytosis: Code(s): D72.829 - Elevated white blood cell count, unspecified Status: Acute Assessment and Plan: Improving -likely reactionary due to fall/surgery (3) Hypertension: Code(s): I10 - Essential (primary) hypertension Status: Chronic Assessment and Plan: Stable and within normal range generally. (4) Constipation: Code(s): K59.00 - Constipation, unspecified Status: Chronic Assessment and Plan: Cont. prn miralax. (5) Elevated liver enzymes: Code(s): R74.8 - Abnormal levels of other serum enzymes Status: Acute Assessment and Plan: Basically normalized. recheck in am (6) Dementia: Code(s): F03.90 - Unspecified dementia, unspecified severity, without behavioral disturbance, psychotic disturbance, mood disturbance, and anxiety Status: Chronic Assessment and Plan: Significant dementia and sometimes combative (7) Hyperkalemia: Code(s): E87.5 - Hyperkalemia Status: Resolved Assessment and Plan: Potassium 3.8 this morning low potassium diet Plan Awaiting insurance authorization for SNF Subjective Date/time seen: 10/17/23 15:14 Interval history: Pt is a 88-year-old female here with left hip fracture. She is not at her baseline per her son, who is at the bedside. She opens her eyes in response to speaking with her but in non-verbal. Will order a UA to rule out infection, could be from decline in dementia and post surgery. Her left leg remains swollen, but she is not appearing to be in pain. She was mildly tachycardic this morning, but asymptomatic. Of note, she has a pacemaker that may need it's battery changed per her son. She was previously seen by Dr. Sanchez. 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 Care coordination following and awaiting placement at rehab facility. Review of Systems Review of Systems: ROS unobtainable: Yes unobtainable due to mental status (history of dementia) Exam Narrative: GENERAL APPEARANCE: Appears to be in no acute distress. HEAD: normocephalic atraumatic ENT: Hearing grossly intact. NECK: Neck supple. CARDIAC: Normal S1/S2. Rhythm is regular, slightly tachycardic.. No murmurs, rubs, or gallops. No cyanosis or pallor. Extremities are warm and well perfused. LUNGS: Clear to auscultation without rales, rhonchi, wheezing or diminished breath sounds. Respirations even and unlabored. ABDOMEN: BS positive. Soft, nondistended, nontender. No guarding or rebound. MSK: Left hip dressing clean dry and intact with some local bruising, dependent bruising in lower leg and foot is more apparent. PERIPHERAL VASCULAR: Peripheral pulses palpable. Normal perfusion, cap refill <2 seconds. No edema. NEURO: Follows commands. No focal deficits. SKIN: [place] without lesions or eruptions. Objective Data Vital Signs Vital Signs: Vital Signs - 24 hr 10/16/23 22:13 10/17/23 06:00 10/17/23 08:43 Temperature 98.5 F 98.6 F Pulse Rate 112 H 119 H Respiratory Rate 20 18 Blood Pressure 106/68 114/68 114/82 Pulse Oximetry 98 95 Oxygen Delivery 10/17/23 09:15 Temperature Pulse Rate Respiratory Rate Blood Pressure Pulse Oximetry Oxygen Delivery Room Air Intake/Output Intake/Output: Intake & Output 10/14/23 10/15/23 10/16/23 10/17/23 23:59 23:59 23:59 23:59 Intake Total 2155 242 3894 340 Output Total 375 Balance 654 838 2568 340 Meds/Results Medications: Active Me
[2023-10-17 15:22] VITALS: BP 121/54; PULSE 132; RESP 18; TEMP 36.4; O2SAT 100
[2023-10-17 18:22] LABS: Appearance Urine Cloudy (Clear); Bacteria Urine None Seen /hpf; Bilirubin Urine 1+ (Negative); Blood Urine Negative (Negative); Color Urine Dark Yellow (Yellow); Glucose Urine UA Negative (Negative); Ketones Urine Trace mg/dL (Negative); Leukocyte Esterase Ur Trace LEU/UL (Negative); Nitrate Urine Negative (Negative); Non Pathogenic Casts 0-2; Protein Urine 1+ mg/dL (Negative); RBC Urine 0-2 /hpf (0-2); Specific Grav Ur 1.027 (1.001-1.035); Squamous Epithelial Cell Urine Few /hpf (Few); WBC Urine 0-5 /hpf; pH Urine 5.5 (5.0-9.0)
[2023-10-17 18:33] LABS: Add Urine Microscopic? YES
[2023-10-17] MEDS: hydrOXYzine pamoate 25 MG CAPSULE 50 MG PO (20:09)
[2023-10-17] MEDS: HYDROcodone/acetaminophen (*CRX) 7.5-325 MG TABLET 2 TAB PO (20:09)
[2023-10-17] MEDS: LOVASTATIN 20 MG TABLET PO (20:09)
[2023-10-17] MEDS: diazePAM (*CRX) 5 MG TABLET PO (20:10)
[2023-10-17] MEDS: TIZANIDINE HCL 2 MG TABLET PO (20:10)
[2023-10-17 21:48] VITALS: BP 143/91; PULSE 128; RESP 20; TEMP 36.2; O2SAT 99
[2023-10-18 05:51] LABS: Basophils Percent Auto 0.6 % (0.2-1.2); Eosinophils Absolute Auto 0.2 K/mm3 (0-0.3); Eosinophils Percent Auto 3.5 % (0-4.4); Hematocrit 31.7 % (37.0-47.0); Hemoglobin 9.7 g/dL (12.0-15.0); Immature Granulocyte Absolute 0.11 K/mm3 (0.00-0.031); Immature Granulocyte Percent A 1.7 % (0-0.5); Lymphocytes Absolute Auto 1.36 K/mm3 (0.9-3.2); Lymphocytes Percent Auto 20.6 % (18.3-44.2); Mean Corpuscular HGB Conc 30.6 g/dl (32-36); Mean Corpuscular Hemoglobin 30.8 pg (26-34); Mean Corpuscular Volume 100.6 fl (80-100); Mean Platelet Volume 10.1 fl (7.4-10.4); Monocytes Absolute Auto 0.7 K/mm3 (0.1-0.6); Monocytes Percent Auto 10.5 % (2.6-8.5); Neutrophils Absolute Auto 4.2 K/mm3 (1.3-6.7); Neutrophils Percent Auto 63.1 % (45.5-73.1); Platelet Count Result 301 k/mm3 (150-375); Red Blood Count 3.15 M/mm3 (4.2-5.4); Red Cell Distribution Width 14.8 % (11.5-14.5); White Blood Count 6.6 K/mm3 (4.5-10.0)
[2023-10-18 06:03] LABS: Alanine Aminotransferase 30 U/L (6-35); Albumin Level 2.6 g/dL (3.5-5.1); Alkaline Phosphatase 70 U/L (38-126); Anion Gap 4 mmol/L (8-16); Aspartate Amino Transferase 69 U/L (14-36); Bilirubin,Total 0.6 mg/dL (0.2-1.3); Blood Urea Nitrogen 21 mg/dL (7-17); Calcium 8.2 mg/dL (8.4-10.2); Carbon Dioxide 27 mmol/L (22-30); Chloride 108 mmol/L (98-107); Estimated CRCL calculation 42 ml/min; Estimated Glomerular Filt Rate > 60; Glucose 92 mg/dL (65-110); Potassium 4.1 mmol/L (3.4-5.0); Sodium 139 mmol/L (137-145)
[2023-10-18 07:50] VITALS: BP 150/82; TEMP 36.1
--- NOTE | 2023-10-18 08:05 | ECG_ITS ---
Measurements Intervals [place] Rate: 123 P: 22 OK: 172 QRS: -21 QRSD: 85 T: 112 QT: 392 QTc: 563 Interpretive Statements SINUS TACHYCARDIA ATRIAL AND VENTRICULAR PREMATURE COMPLEXES DELAYED PRECORDIAL R/S TRANSITION LEFT VENTRICULAR HYPERTROPHY AND ST-T CHANGE BORDERLINE T WAVE ABNORMALITY- LATERAL LEADS ABNORMAL ECG COMPARED TO ECG 10/09/2023 14:41:28 NO SIGNIFICANT CHANGES Electronically Signed On 10-18-2023 10:34:02 [employer] by Leonard Patel D.O.
[2023-10-18] MEDS: SERTRALINE HCL 50 MG TABLET 100 MG PO (08:38)
[2023-10-18] MEDS: CELECOXIB 200 MG CAPSULE PO (08:38)
[2023-10-18] MEDS: FAMOTIDINE 20 MG TABLET PO (08:38)
[2023-10-18] MEDS: SENNA/DOCUSATE SODIUM TABLET 2 TAB PO (08:38)
[2023-10-18] MEDS: busPIRone HCL 5 MG TABLET 15 MG PO (08:38)
[2023-10-18] MEDS: ENOXAPARIN 40 MG/0.4 ML SYRINGE SUB-Q (08:39)
[2023-10-18] MEDS: polyethylene glycoL 3350 17 GM POWD.PACK PO (08:39)
[2023-10-18] MEDS: HYDROcodone/acetaminophen (*CRX) 5-325 MG TABLET 1 TAB PO (08:44)
[2023-10-18] MEDS: CARBAMIDE PEROXIDE 6.5% OT SOLN 15 ML BTL 5 DROP EACH EAR (09:52)
[2023-10-18 12:02] VITALS: BMI 11.0
[2023-10-18] MEDS: ACETAMINOPHEN 325 MG TABLET 650 MG PO (12:07)
--- NOTE | 2023-10-18 13:00 | PM.DS ---
DS: Admitting Diagnosis Discharge Date 10/18/23 Admitting Diagnosis left hip pain DS: Discharge Diagnosis Discharge Diagnosis (1) Closed subcapital fracture of left femur: Code(s): S72.012A - Unspecified intracapsular fracture of left femur, initial encounter for closed fracture Status: Acute Assessment and Plan: S/p LEFT HIP HEMIARTHROPLASTY WITH BIPOLAR PROSTHESIS - POD 6 -PT and OT - appropriate for SNF placement at [facility] -lovenox for dvt ppx for 28 days total, last dose 11/09/23 (2) Leukocytosis: Code(s): D72.829 - Elevated white blood cell count, unspecified Status: Resolved Assessment and Plan: resolved - likely reactionary due to fall/surgery (3) Hypertension: Code(s): I10 - Essential (primary) hypertension Status: Chronic Assessment and Plan: Stable and within normal range generally. (4) Constipation: Code(s): K59.00 - Constipation, unspecified Status: Chronic Assessment and Plan: Cont. prn miralax. (5) Elevated liver enzymes: Code(s): R74.8 - Abnormal levels of other serum enzymes Status: Acute Assessment and Plan: improved, could be elevated due to Tylenol administration for post op (6) Dementia: Code(s): F03.90 - Unspecified dementia, unspecified severity, without behavioral disturbance, psychotic disturbance, mood disturbance, and anxiety Status: Chronic Assessment and Plan: Significant dementia and sometimes combative SNF placement at [facility] (7) Hyperkalemia: Code(s): E87.5 - Hyperkalemia Status: Resolved Assessment and Plan: Potassium 3.8 this morning low potassium diet DS: Summary Hospital Course Hospital Course: Patient is an 88-year-old female with PMH of dementia, coronary artery disease, hypertension, hyperlipidemia, depression, and history of breast cancer admitted for left leg pain after a fall. She has significant short-term memory loss and is not able to provide an accurate history and thus a majority the following is obtained via a review of her electronic medical records as well as information obtained from her family. Radiographs in the ED showed a superior laterally displaced left subcapital femoral neck fracture and she underwent a LEFT HIP HEMIARTHROPLASTY WITH BIPOLAR PROSTHESIS followed by Dr. Rivero. She is now day 5, has been evaluated by PT/OT and is appropriate for transition to SNF today at d/c. Repeat EKG done today due to tachycardia. EKG remained unchanged. WBC stable, UA was clear of infection. Son has been at bedside and she was in no acute stress on exam this morning. Electrolytes have stabilized. She is to follow weight bearing status, Lovenox until 11/09/23 and follow up with Ortho as directed. Status at Discharge Functional status at discharge: uses cane/walker Overall status at discharge: patient is not back to baseline Time Spent with Patient Time attestation: Total time spent providing and/or coordinating discharge services: Exam Narrative: GENERAL APPEARANCE: Appears to be in no acute distress. HEAD: normocephalic atraumatic ENT: Hearing grossly intact. NECK: Neck supple. CARDIAC: Normal S1/S2. Rhythm is regular, slightly tachycardic. No murmurs, rubs, or gallops. No cyanosis or pallor. Extremities are warm and well perfused. LUNGS: Clear to auscultation without rales, rhonchi, wheezing or diminished breath sounds. Respirations even and unlabored. ABDOMEN: BS positive. Soft, nondistended, nontender. No guarding or rebound. MSK: Left hip dressing clean dry and intact with some local bruising, dependent bruising in lower leg and foot is more apparent. PERIPHERAL VASCULAR: Peripheral pulses palpable. Normal perfusion, cap refill <2 seconds. No edema. NEURO: Follows commands. No focal deficits. SKIN: [place] without lesions or eruptions. DS: Data Data Completed and Pending Labs on day of discharge: Labs from last
[2023-10-18 13:50] LABS: SARS-CoV-2 RNA PCR Negative (Negative)
[2023-10-18 14:37] VITALS: PULSE 125; O2SAT 94
== END 2023-10-18 15:00 | DRG 522 ==
LOC: ANHED 14:33 → ANH3MED 18:08
PROVIDERS: Internal Medicine Critical Care Medicine; Nurse Practitioner Family; Orthopaedic Surgery; Physician Assistant; Admitting Provider Family Medicine; Emergency Provider Emergency Medicine; PCP Family Medicine; Visit Provider Nurse Practitioner
PROC: (CPT 27125; principal; 2023-10-12 09:00)
DX: S72.012A Unspecified intracapsular fracture of left femur, initial encounter for closed fracture (principal); W18.30XA Fall on same level, unspecified, initial encounter; F03.90 Unspecified dementia, unspecified severity, without behavioral disturbance, psychotic disturbance, mood disturbance, and anxiety; I25.10 Atherosclerotic heart disease of native coronary artery without angina pectoris; I10 Essential (primary) hypertension; E78.5 Hyperlipidemia, unspecified; F32.A Depression, unspecified; F41.9 Anxiety disorder, unspecified; K59.00 Constipation, unspecified; Z90.13 Acquired absence of bilateral breasts and nipples; D72.829 Elevated white blood cell count, unspecified; R74.8 Abnormal levels of other serum enzymes; E87.5 Hyperkalemia; R00.0 Tachycardia, unspecified; Z20.822 Contact with and (suspected) exposure to COVID-19; Z85.3 Personal history of malignant neoplasm of breast; Z95.0 Presence of cardiac pacemaker; Z79.82 Long term (current) use of aspirin
CPT/HCPCS: 36415; 36430; 71045; 73502; 80048; 80053; 80076; 81001; 83735; 84443; 85014; 85018; 85025; 85027; 85055; 85610; 85730; 86850; 86900; 86901; 86923; 87635; 87637; 93005; 96374; 96376; 97110; 97162; 97165; 97530; 97535; 99199; 99285; A9270; C1713; C1776; G0378; J0171; J0612; J0690; J1100; J1650; J1885; J2270; J2371; J2405; J2704; J2710; J2795; J3010; J3370; J7030; J7120; P9016

== ENCOUNTER 2023-10-20 16:10 | Inpatient (IN) | payer MEDICARE, SELFPAY ==
[2023-10-20] VITALS (36 sets, daily range): BP systolic 100–228; BP diastolic 58–201; PULSE 117–148; RESP 16–35; TEMP 36.9–37.9; O2SAT 92–100; BMI 22.1
--- NOTE | ~2023-10-20 | XR_ITS ---
Portable chest x-ray Comparison: 10/22/2023 Clinical History: Cough Findings: Small left pleural effusion present with hazy left basilar airspace disease. There is foca l haziness right upper lobe. Cardiomediastinal silhouette is stable, with pacemaker device. Bones an d soft tissues are unremarkable. Impression: Small left pleural effusion with left basilar atelectasis/edema versus pneumonia. Hazy right basilar airspace disease could represent fissural focal pneumonia versus pulmonary edema. Stable cardiomegaly with pacemaker device. Reviewed, dictated and finalized at [facility]. E PRESSER Impression: Small left pleural effusion with left basilar atelectasis/edema versus pneumoni a. Hazy right basilar airspace disease could represent fissural focal pneumonia ve rsus pulmonary edema. Stable cardiomegaly with pacemaker device.
--- NOTE | ~2023-10-20 | XR_ITS ---
AP view of the pelvis and AP and lateral views of the left hip Clinical history: Pain COMPARISON: 10/20/2023 Findings: Left hip arthroplasty is unchanged. Stable cerclage wire with greater trochanteric fracture fragment, with stable osseous and orthopedic hardware alignment. Right hip joint space is preserved. Soft tissues are otherwise unremarkable. Impression: Stable left hip arthroplasty with cerclage wire involving a large greater trochanteric fragment. Stab le osseous and orthopedic hardware alignment as compared to prior exam. Reviewed, dictated and finalized at location M. EYARD SUPERVISOR Impression: Stable left hip arthroplasty with cerclage wire involving a large greater troch anteric fragment. Stable osseous and orthopedic hardware alignment as compared to prior exam.
--- NOTE | ~2023-10-20 | XR_ITS ---
EXAMINATION: XR hip LT 1V DATE: 10/20/2023 18:55 INDICATION: Left hip dislocation status post reduction. TECHNIQUE: A single view of left hip was obtained. COMPARISON: Left hip radiographs 10/20/2023, 10/12/2023 FINDINGS: There is a bipolar left hip hemiarthroplasty in near-anatomic alignment. There is a displac ed fracture of greater trochanter. There is a cable around the proximal femur. IMPRESSION: 1. Bipolar left hip hemiarthroplasty in near-anatomic alignment. 2. Fracture of greater trochanter of proximal femur with worsened alignment compared to the intraoper ative radiograph on 10/12/2023. Reviewed, dictated and finalized at location E. SCIENCES MANAGER IMPRESSION: 1. Bipolar left hip hemiarthroplasty in near-anatomic alignment. 2. Fracture of greater trochanter of proximal femur with worsened alignment com pared to the intraoperative radiograph on 10/12/2023.
--- NOTE | ~2023-10-20 | XR_ITS ---
MODIFIED ESOPHAGRAM HISTORY: Failed bedside swallow study TECHNIQUE: Modified barium esophagram was performed on 10/27/2023. I administered fluoroscopy and perf ormed the exam with speech pathologist. Patient was seated for lateral fluoroscopic imaging for hugo stion of thin liquids, pudding, solids and quantified amounts, followed by thin liquids in uncontroll ed amounts. This was recorded on tape. A single fluoroscopic spot image was also recorded. The DAP fo r this procedure was 1.35 Gycm2. The amount of fluoroscopy time used during this procedure was 2.0 mi nutes. FINDINGS: Oral stage: Adequate function. Pharyngeal stage: There is laryngeal penetration of a small amount of contrast with uncontrolled thin liquids consistent with a straw which elicited a cough reflex. No aspiration.. Cervical/esophageal stage: Adequate function. IMPRESSION: Mild pharyngeal dysphagia with small amount of laryngeal penetration without aspiration. Please correlate with speech pathologist findings and specific feeding recommendations. Reviewed, dictated and finalized at location A. IT AUTHORIZER IMPRESSION: Mild pharyngeal dysphagia with small amount of laryngeal penetratio n without aspiration. Please correlate with speech pathologist findings and sp ecific feeding recommendations.
--- NOTE | ~2023-10-20 | XR_ITS ---
XR chest 1V portable DATE: 10/22/2023 11:22 INDICATION: Chest congestion TECHNIQUE: Portable upright AP chest on 10/22/2023 and 1116 hours COMPARISON: 10/20/2023 CTA chest 10/05/2023 AP chest FINDINGS: Left pacemaker device with lead overlying right ventricular apex. Cardiomegaly. Aortic calc ification and mild unfolding. Mild pulmonary vascular congestion is suggested. There are bilateral Xavier B-lines which are likely due to pulmonary interstitial edema versus pulmon christos interstitial fibrosis considering that there appear to be largely new since previous examination. No pulmonary consolidation is evident. No pleural effusion or pneumothorax. Osteopenia. Status post vertebroplasty at T12. IMPRESSION: Cardiomegaly, mild pulmonary vascular congestion, suspected mild pulmonary interstitial e pilar Left pacemaker device with right ventricular lead . Reviewed, dictated and finalized at location A. STANT FOOD SERVICE MANAGER IMPRESSION: Cardiomegaly, mild pulmonary vascular congestion, suspected mild pu lmonary interstitial edema Left pacemaker device with right ventricular lead .
--- NOTE | ~2023-10-20 | CT_ITS ---
EXAMINATION: CT abdomen pelvis wo/w con DATE: 10/23/2023 11:16 INDICATION: Low hemoglobin and hematocrit. Recent fall after hip replacement TECHNIQUE: Computed tomography (CT) of the abdomen and pelvis was performed without and subsequently with 100 CC Omnipaque 350 intravenous contrast. Automated exposure control and iterative reconstructi on technique were employed. Exam dose: 1298.58 mGy-cm total exam DLP. COMPARISON: 10/21/2023 left hip FINDINGS: Cardiomegaly. Right ventricular pacemaker lead is identified. There are moderate bilateral pleural effusions and primarily dependent bilateral lower lobe atelectasis. There is edema of the chest, abdominal and pelvic jain and proximal thighs, more prominent on the le ft. There is asymmetric soft tissue swelling of the proximal left thigh. There are hematomas in the l eft buttock and gluteal area Compression fracture and vertebroplasty at T12. Degenerative changes apophyseal joints with associated minimal grade 1 anterolisthesis at L4-5. Moder ate degenerative disc disease of lumbar spine. Left bipolar hip prosthesis with cerclage wire at the intertrochanter area. Status post cholecystectomy. No hepatic, splenic, pancreatic, and adrenal space-occupying mass lesion. Multiple bilateral renal cysts, measuring up to 5.3 cm diameter on the right, 8.4 cm on the left. No suspicious renal space occupying mass lesion is detected. No urinary tract calculus or hydroureterone phrosis is detected. Atherosclerotic calcification of the abdominal aorta. No abdominal aortic aneurysm. No intraperitonea l or retroperitoneal or pelvic mass lesion or adenopathy or ascites is detected. There is a Mcmullen catheter within the evacuated urinary bladder. The bladder wall appears thickened. C onsider cystitis. Diverticulosis of the colon; no CT evidence of diverticulitis. Liquid stool in the right colon. Promi nent amount of fecal material in the rectum. IMPRESSION: Negative chest, abdominal and pelvic jain more prominent on the left, pulmonary status soft tissue swelling of the proximal left thigh, multiple hematomas of the left thigh and buttock Cardiomegaly Status post cholecystectomy Multiple bilateral renal cysts Diverticulosis of the colon Reviewed, dictated and finalized at Location A. Reviewed, dictated and finalized at location A. EE CLERK IMPRESSION: Negative chest, abdominal and pelvic jain more prominent on the l eft, pulmonary status soft tissue swelling of the proximal left thigh, multiple hematomas of the left thigh and buttock Cardiomegaly Status post cholecystectomy Multiple bilateral renal cysts Diverticulosis of the colon
--- NOTE | ~2023-10-20 | XR_ITS ---
EXAMINATION: 1. XR femur LT min 2V 2. XR hip LT 2V w AP pelvis DATE: 10/20/2023 17:14 INDICATION: Left femur deformity. TECHNIQUE: 2 views of left femur on 4 radiographs, anteroposterior view of the pelvis, and 2 views of left hip were obtained. COMPARISON: Left hip radiographs 10/16/2023, 10/09/2023 FINDINGS: PELVIS: There is a bipolar left hip hemiarthroplasty. There is lateral and proximal dislocation of th e femoral component with respect to the acetabulum. There is a displaced fracture of left greater tro chanter. There is a cable around the proximal left femur. There is at least moderate lumbar spondylos is. There is mild right hip osteoarthritis. LEFT HIP: Again seen is dislocation of the bipolar left hip hemiarthroplasty with periprosthetic frac ture. LEFT FEMUR: Distal left femur is normal. Left knee joint spaces are normal. No left knee joint effusi on. IMPRESSION: 1. Dislocated bipolar left hip hemiarthroplasty. 2. Fracture of left greater trochanter with worsened alignment compared to the intraoperative radiogr aph. Reviewed, dictated and finalized at location E. STICS INTERN IMPRESSION: 1. Dislocated bipolar left hip hemiarthroplasty. 2. Fracture of left greater trochanter with worsened alignment compared to the intraoperative radiograph.
--- NOTE | ~2023-10-20 | CT_ITS ---
EXAMINATION: CTA chest PE protocol DATE: 10/20/2023 19:33 INDICATION: Tachycardia. TECHNIQUE: Computed tomography angiography (CTA) of the chest was performed with 100 mL Omnipaque-350 intravenous contrast timed to evaluate the pulmonary arteries. Coronal maximum intensity projection 3D-reconstructions were created by the technologist. Automated exposure control and iterative reconst ruction technique were employed. The dose-length product was 200.80 mGy-cm. COMPARISON: Chest CT 09/19/2022 FINDINGS: There is mild scarring at the lung apices. There is mild scarring in paraspinal right lower lobe. There is mild atelectasis bilaterally. There is septal thickening in the inferior lungs. There is a trace left pleural effusion. Cardiomegaly is noted. No right ventricular enlargement. There are coronary artery calcifications. No pericardial effusion. There are acute pulmonary emboli in left lo wer lobe. There are changes of cholecystectomy. There is a left chest pacer with lead in right ventri les. There are bridging endplate osteophytes at multiple levels in the spine, consistent with diffuse idiopathic skeletal hyperostosis (DISH). There is a chronic compression fracture of T12 with changes of vertebroplasty. IMPRESSION: 1. Acute pulmonary emboli in left lower lobe. Sensitivity in other lobes is moderately decreased by m otion artifact. I called this result to Dr. Guzman. 2. Mild pulmonary edema. Reviewed, dictated and finalized at location E. S ORDER ADMINISTRATOR IMPRESSION: 1. Acute pulmonary emboli in left lower lobe. Sensitivity in other lobes is mod erately decreased by motion artifact. I called this result to Dr. Guzman. 2. Mild pulmonary edema.
--- NOTE | ~2023-10-20 | US_ITS ---
EXAMINATION: US venous doppler [facility] DATE: 10/23/2023 14:53 INDICATION: Bilateral lower limb swelling TECHNIQUE: Encinas scale images without and with compression and Doppler images of the bilateral lower e xtremity veins were obtained. COMPARISON: None FINDINGS: The right common femoral vein, profunda femoral vein, femoral vein, popliteal vein, peroneal trunk, p osterior tibial veins, and greater saphenous vein are patent. The left common femoral vein, profunda femoral vein, femoral vein, popliteal vein, peroneal trunk, po sterior tibial veins, and greater saphenous vein are patent. IMPRESSION: 1. Patent bilateral lower extremity veins. No evidence of deep venous thrombosis. Reviewed, dictated and finalized at location F. UCT SUPPORT TECHNICIAN IMPRESSION: 1. Patent bilateral lower extremity veins. No evidence of deep venous thrombosi s.
--- NOTE | 2023-10-20 16:24 | ECG_ITS ---
Measurements Intervals [place] Rate: 134 P: -2 WA: 165 QRS: -17 QRSD: 82 T: 73 QT: 360 QTc: 539 Interpretive Statements SINUS TACHYCARDIA LEFT ATRIAL ENLARGEMENT CANNOT RULE OUT SEPTAL INFARCT, AGE INDETERMINATE LEFT VENTRICULAR HYPERTROPHY WITH ST-T CHANGE BASELINE WANDER- II, III, AVR, AVF ABNORMAL ECG COMPARED TO ECG 10/18/2023 10:19:36 NO SIGNIFICANT CHANGES Electronically Signed On 10-20-2023 18:06:54 DIRECTOR EPIDEMIOLOGY by Leonard Patel D.O.
[2023-10-20] MEDS: MORPHINE SULFATE (*CRX) 2 MG/ML INJ IV PUSH (16:41)
[2023-10-20] MEDS: SODIUM CHLORIDE 0.9% IV 1,000 ML 999 ML IV CONT (16:41)
[2023-10-20 17:37] LABS: Basophils Percent Auto 0.3 % (0.2-1.2); Eosinophils Absolute Auto 0.1 K/mm3 (0-0.3); Eosinophils Percent Auto 0.8 % (0-4.4); Hematocrit 30.9 % (37.0-47.0); Hemoglobin 9.2 g/dL (12.0-15.0); Immature Granulocyte Absolute 0.18 K/mm3 (0.00-0.031); Immature Granulocyte Percent A 1.6 % (0-0.5); Lymphocytes Absolute Auto 0.96 K/mm3 (0.9-3.2); Lymphocytes Percent Auto 8.4 % (18.3-44.2); Mean Corpuscular HGB Conc 29.8 g/dl (32-36); Mean Corpuscular Hemoglobin 30.6 pg (26-34); Mean Corpuscular Volume 102.7 fl (80-100); Mean Platelet Volume 9.9 fl (7.4-10.4); Monocytes Absolute Auto 0.7 K/mm3 (0.1-0.6); Monocytes Percent Auto 6.3 % (2.6-8.5); Neutrophils Absolute Auto 9.5 K/mm3 (1.3-6.7); Neutrophils Percent Auto 82.6 % (45.5-73.1); Platelet Count Result 319 k/mm3 (150-375); Red Blood Count 3.01 M/mm3 (4.2-5.4); Red Cell Distribution Width 14.8 % (11.5-14.5); White Blood Count 11.5 K/mm3 (4.5-10.0)
[2023-10-20 17:47] LABS: INR 1.2; Prothrombin Time 16.2 Seconds (11.1-14.7)
[2023-10-20 17:48] LABS: Partial Thromboplastin Time 36.1 SECONDS (22.3-36.8)
[2023-10-20 17:49] LABS: Alanine Aminotransferase 35 U/L (6-35); Albumin Level 2.8 g/dL (3.5-5.1); Alkaline Phosphatase 70 U/L (38-126); Anion Gap 3 mmol/L (8-16); Aspartate Amino Transferase 68 U/L (14-36); Bilirubin,Total 0.5 mg/dL (0.2-1.3); Blood Urea Nitrogen 25 mg/dL (7-17); Carbon Dioxide 28 mmol/L (22-30); Chloride 108 mmol/L (98-107); Estimated CRCL calculation 42 ml/min; Estimated Glomerular Filt Rate > 60; Glucose 106 mg/dL (65-110); Platelet Estimate Adequate (Adequate); Potassium 4.4 mmol/L (3.4-5.0); Schistocytes None Seen (NORMAL); Sodium 139 mmol/L (137-145)
[2023-10-20 17:50] LABS: Hypochromasia 1+ (NORMAL)
--- NOTE | 2023-10-20 17:53 | ED.FALL ---
HPI - Fall General Chief Complaint: Fall Stated Complaint: FALL/ HIP PROBLEM Time Seen by Provider: 10/20/23 16:14 History of Present Illness HPI Narrative: patient is an 88-year-old female who presents ER with deformity to her left lower extremity. [facility] Patient recently underwent left hip hemiarthroplasty due to a fracture. Patient with dementia and unable to provide any history. She does endorse pain to left hip. Related Data Home Medications Medication Instructions Recorded Confirmed aspirin 81 mg tablet,delayed 81 mg PO DAILY 09/19/22 10/09/23 release buspirone 15 mg tablet 15 mg PO DAILY 09/19/22 10/09/23 lovastatin 20 mg tablet 20 mg PO HS 09/19/22 10/09/23 sertraline 50 mg tablet 100 mg PO DAILY 09/19/22 10/09/23 tizanidine 2 mg tablet 2 mg PO HS 09/19/22 10/09/23 Allergies Allergy/AdvReac Type Severity Reaction Status Date / Time No Known Allergies Allergy Verified 10/20/23 16:33 Review of Systems Review of Systems: ROS unobtainable: Yes unobtainable due to mental status PMFSH Past Medical History Medical History Anxiety Breast cancer Coronary artery disease Dementia Depression Hyperlipidemia Hypertension Surgical History Surgical History History of appendectomy History of bilateral mastectomy History of cholecystectomy History of hysterectomy History of permanent cardiac pacemaker placement Family History Family History Other Family history unknown Social History Social History Social History: Surrogate medical decision maker: Ofelia Johnson, daughter. Code status: Full code. Smoking status: Never smoker Alcohol intake: never Substance use: never Substance use type: does not use Living arrangements: with family Spiritual care concerns: No Exam Narrative: GENERAL: Well-appearing, well-nourished, and in no acute distress. HEAD: Normocephalic, atraumatic. ENT: Mucous membranes moist. NECK: Supple. CHEST: Clear to auscultation. No respiratory distress. HEART: Regular rate and rhythm. Normal peripheral pulses. ABDOMEN: Soft, nontender, nondistended. EXTREMITIES: Left lower extremity shortening external rotation compared to the right. Edema noted likely postop. pulses and gross sensation intact. SKIN: Warm, dry, no rash. NEURO: Alert and oriented x1. PSYCH: Normal mood and affect. Course Course Emergency Course: Orthopedic surgery consulted. Will attempt to reduce the hip. Regardless of success patient will need to be admitted for observation. patient had elevated heart rate while in the hospital previously and continues to have elevated heart rate today. There is mild strain on the EKG in the lateral leads. Will add on CTA as well as troponin and BNP. Hospitalist aware will follow-up on the results. Vital Signs Vital signs: Vital Signs Temperature 98.5 F 10/20/23 16:11 Pulse Rate 131 H 10/20/23 16:11 Respiratory Rate 18 10/20/23 16:11 Blood Pressure 105/58 L 10/20/23 16:11 Pulse Oximetry 99 10/20/23 16:11 Oxygen Delivery Room Air 10/20/23 16:11 Temperature 98.5 F 10/20/23 16:11 Pulse Rate 138 H 10/20/23 18:47 Respiratory Rate 27 H 10/20/23 18:47 Blood Pressure 120/104 H 10/20/23 18:47 Pulse Oximetry 95 10/20/23 18:47 Oxygen Delivery Room Air 10/20/23 18:43 Procedures Procedural Sedation Procedural Sedation #1: Procedural Sedation Date: 10/20/23 Procedural Sedation Time: 08:52 Presedation Evaluation: Awake and alert, conversing Procedure: left him reduction Provider Performed: sedation and procedure Informed Consent Obtained: yes Equipment in Room: bag and mask, capnogra
[2023-10-20] MEDS: PROPOFOL IV EMULSION 100 ML 4 MG (18:43)
[2023-10-20] MEDS: SODIUM CHLORIDE 0.9% IV 1,000 ML 50 ML (18:50)
[2023-10-20 19:27] LABS: NT Pro B Type Natriuretic Pept 8430 pg/mL (19.9-100)
[2023-10-20 19:47] LABS: Troponin I 0.022 ng/mL (0.000-0.034)
[2023-10-20] MEDS: HEPARIN SODIUM 5,000 UNITS/ML VIAL 4500 UNITS IV PUSH (20:19)
[2023-10-20] MEDS: HEPARIN SOD/D5W 100 UNITS/ML 25,000 UNITS/250 ML BAG 10 UNITS IV CONT (20:20)
--- NOTE | 2023-10-20 20:29 | PM.IMHP ---
H&P: HPI History of Present Illness Date/Time: 10/20/23 20:29 Chief Complaint: fall Narrative: This is an 88-year-old female with past medical history significant for generalized anxiety disorder, depression, hyperlipidemia, hypertension, coronary artery disease, breast cancer. patient recently discharged due to fall with left hip fracture status post total hip replacement was sent to rehabilitation where patient had a fall with dislocation of prosthetic hip. Preliminary workup was significant CT angiogram of the chest showed acute pulmonary embolism. History has been obtained from son who was at bedside. EXAMINATION: CTA chest PE protocol DATE: 10/20/2023 19:33 INDICATION: Tachycardia. TECHNIQUE: Computed tomography angiography (CTA) of the chest was performed with 100 mL Omnipaque-350 intravenous contrast timed to evaluate the pulmonary arteries. Coronal maximum intensity projection 3D-reconstructions were created by the technologist. Automated exposure control and iterative reconstruction technique were employed. The dose-length product was 200.80 mGy-cm. COMPARISON: Chest CT 09/19/2022 FINDINGS: There is mild scarring at the lung apices. There is mild scarring in paraspinal right lower lobe. There is mild atelectasis bilaterally. There is septal thickening in the inferior lungs. There is a trace left pleural effusion. Cardiomegaly is noted. No right ventricular enlargement. There are coronary artery calcifications. No pericardial effusion. There are acute pulmonary emboli in left lower lobe. There are changes of cholecystectomy. There is a left chest pacer with lead in right ventricle. There are bridging endplate osteophytes at multiple levels in the spine, consistent with diffuse idiopathic skeletal hyperostosis (DISH). There is a chronic compression fracture of T12 with changes of vertebroplasty. IMPRESSION: 1. Acute pulmonary emboli in left lower lobe. Sensitivity in other lobes is moderately decreased by motion artifact. I called this result to Dr. Guzman. 2. Mild pulmonary edema. Review of Systems Review of Systems: ROS unobtainable: Yes unobtainable due to medical condition ( dementia) [facility] Past Medical History Medical History Anxiety Breast cancer Coronary artery disease Dementia Depression Hyperlipidemia Hypertension Surgical History Surgical History History of appendectomy History of bilateral mastectomy History of cholecystectomy History of hysterectomy History of permanent cardiac pacemaker placement Family History Family History Other Family history unknown Social History Social History Social History: Surrogate medical decision maker: Ofelia Johnson, daughter. Code status: Full code. Smoking status: Never smoker Alcohol intake: never Substance use: never Substance use type: does not use Living arrangements: with family Spiritual care concerns: No Meds Home Medications and Allergies Home Medications Medication Instructions Recorded Confirmed Type buspirone 15 mg tablet 15 mg PO DAILY 09/19/22 10/20/23 History lovastatin 20 mg tablet 20 mg PO HS 09/19/22 10/20/23 History sertraline 50 mg tablet 100 mg PO DAILY 09/19/22 10/20/23 History tizanidine 2 mg tablet 2 mg PO HS 09/19/22 10/20/23 History acetaminophen 325 mg tablet 650 mg PO Q6H PRN Mild Pain (1-3) 10/16/23 10/20/23 Rx Or Fever #0 tabs diazepam 5 mg tablet 5 mg PO Q8H PRN Muscle Spasm #30 10/16/23 10/20/23 Rx tabs enoxaparin 40 mg/0.4 mL 40 mg (0.4 mL) subcut DAILY #0 mL 10/16/23 10/20/23 Rx subcutaneous syringe (Lovenox) famotidine 20 mg tablet 20 mg PO Q12HR #0 tabs 10/16/23 10/20/23 Rx hydrocodone 5 mg-acetaminophen 325 1 tablet PO Q4H PRN Pain Rated 4-6
[2023-10-20 21:26] LABS: Appearance Urine Clear (Clear); Bilirubin Urine Negative (Negative); Blood Urine Negative (Negative); Color Urine Yellow (Yellow); Glucose Urine UA Negative (Negative); Ketones Urine Negative (Negative); Leukocyte Esterase Ur Negative LEU/UL (Negative); Nitrate Urine Negative (Negative); Protein Urine Negative (Negative); pH Urine 5.5 (5.0-9.0)
[2023-10-20 21:33] LABS: Add Urine Microscopic? NO; Specific Grav Ur 1.036 (1.001-1.035)
--- NOTE | 2023-10-20 22:09 | ADMGEN ---
This patient, Tequila Johnson, was admitted to IMU Room 205-02. Patient/family oriented to hospital policies and general routines including ID bracelet, bed and alarms, visiting hours, pain management, procedures, bathroom and other care routines, personal items, smoking policy, room service/diet, and visiting hours. Information on how to activate the Rapid Response Team has been discussed. Patient/Family are encouraged to report perceived risks to care and to ask questions if they do not understand what they are told or what they should do.
[2023-10-20] MEDS: SODIUM CHLORIDE 0.9% IV 1,000 ML 125 ML IV CONT (22:54)
[2023-10-20] MEDS: IBUPROFEN IV 800 MG/200 ML 800 MG/200 ML BAG 400 MG IVPB (23:03)
[2023-10-21] VITALS (18 sets, daily range): BP systolic 106–134; BP diastolic 58–98; PULSE 122–154; RESP 16–22; TEMP 36.3–37.9; O2SAT 97–100
--- NOTE | 2023-10-21 | ECHO_ITS ---
Patient Info Name: Tequila Johnson Age: 88 years : 1935 Gender: Female Ht: 64 in Wt: 128 lbs BSA: 1.62 m2 HR: 140 bpm BP: 116 / 58 mmHg Technical Quality: Fair Exam Date: 10/21/2023 3:25 PM Exam Location: Echo Lab Exam Room: [facility] Patient Status: Outpatient Admit Date: 10/20/2023 Staff Ordering Physician: Evelin Kohler APRN Behavioral Science Chair: Sheyla Avilez RDCS Attending Provider: Caesar Bowens MD Referring Physician: Edita EARL; Exam Type: CA echo doppler color flow Study Info Indications - pe r/o right heart strain Complete two-dimensional, color flow and Doppler transthoracic echocardiogram is performed. Summary 1. Complete two-dimensional, color flow and Doppler transthoracic echocardiogram is performed. Recommendations * Borderline LV enlargement, mild LVH, severe global LV systolic dysfunction, ejection fraction about 25%; diastolic dysfunction is present. Normal RV size and systolic function. Mild left atrial enlargement. Linear artifact is seen in the RA/RV. Mitral valve is mildly thickened, trivial MR. Mild aortic valve sclerosis, trace aortic regurgitation. Trace TR, mild pulmonary hypertension, RVSP 41 mmHg. Left Ventricle Left ventricular chamber dimension is normal. Left ventricular systolic function is severely reduced, estimated at 20-25%. There is mildly increased left ventricular wall thickness. The left ventricular diastolic function is abnormal. Right Ventricle Right ventricular chamber dimension is normal. Right ventricular systolic function is normal. Linear artifact in right ventricle suggestive of catheter(s), pacemaker lead(s), or ICD lead(s). Left Atria Left atrial chamber dimension is mildly enlarged. Right Atria Right atrial chamber dimension is normal. Linear artifact in the right atrium suggestive of catheter(s), pacemaker lead(s), or ICD lead(s). Aortic Valve There is mild aortic valve sclerosis. There is mild aortic valve stenosis with a peak velocity of 153 cm/s, mean gradient of 5 mmHg, and aortic valve area of 1.9 cm2. There is trace aortic valve regurgitation. Pulmonic Valve The pulmonic valve is normal. Mitral Valve The mitral valve has thickened leaflets. There is trace mitral valve regurgitation. Tricuspid Valve The tricuspid valve leaflets are normal. There is trace tricuspid valve regurgitation. Mild pulmonary hypertension, estimated pulmonary arterial systolic pressure is 41 mmHg. Inferior Vena Cava Normal inferior vena cava with >50% collapse upon inspiration consistent with normal right atrial pressure, 10 mmHg. Aorta The aortic root size at the sinus of Valsalva is normal. Left Ventricular Outflow Tract Name Value Normal LVOT 2D LVOT Diameter 2.0 cm LVOT Doppler LVOT Peak Gradient 5 mmHg LVOT Mean Gradient 3 mmHg LVOT VTI 13 cm LVOT VTI/AV VTI Ratio 0.6 LVOT Stroke Volume 40 ml LVOT CO 13.8 l/min LVOT CI 8.5 l/min/m2 Pulmonic Valve Name
[2023-10-21 02:31] LABS: Basophils Percent Auto 0.3 % (0.2-1.2); Eosinophils Percent Auto 0.2 % (0-4.4); Hematocrit 27.8 % (37.0-47.0); Hemoglobin 8.1 g/dL (12.0-15.0); Immature Granulocyte Absolute 0.14 K/mm3 (0.00-0.031); Immature Granulocyte Percent A 1.1 % (0-0.5); Lymphocytes Absolute Auto 1.05 K/mm3 (0.9-3.2); Mean Corpuscular HGB Conc 29.1 g/dl (32-36); Mean Corpuscular Hemoglobin 30.7 pg (26-34); Mean Corpuscular Volume 105.3 fl (80-100); Mean Platelet Volume 10.1 fl (7.4-10.4); Monocytes Absolute Auto 0.7 K/mm3 (0.1-0.6); Monocytes Percent Auto 5.1 % (2.6-8.5); Neutrophils Absolute Auto 11.1 K/mm3 (1.3-6.7); Neutrophils Percent Auto 85.3 % (45.5-73.1); Platelet Count Result 244 k/mm3 (150-375); Red Blood Count 2.64 M/mm3 (4.2-5.4); White Blood Count 13.1 K/mm3 (4.5-10.0)
[2023-10-21 02:50] LABS: Partial Thromboplastin Time 81.1 SECONDS (22.3-36.8)
[2023-10-21 03:16] LABS: Anisocytosis 1+ (NORMAL); Hypochromasia 1+ (NORMAL); Platelet Estimate Adequate (Adequate); Schistocytes None Seen (NORMAL)
[2023-10-21] MEDS: SODIUM CHLORIDE 0.9% IV 1,000 ML 125 ML IV CONT ×2 (07:09→16:37)
[2023-10-21 08:37] LABS: Partial Thromboplastin Time 143.6 SECONDS (22.3-36.8)
--- NOTE | 2023-10-21 10:08 | PM.CNOR ---
Assessment and Plan Assessment and plan (1) Dislocation, hip: Qualifiers: Encounter type: initial encounter Laterality: left Qualified Code(s): S73.005A - Unspecified dislocation of left hip, initial encounter Code(s): S73.006A - Unspecified dislocation of unspecified hip, initial encounter Status: Acute Assessment and Plan: Patient returns to the hospital for a fall that was unwitnessed at her nursing facility. She underwent a left hip bipolar prosthesis on October 12. She is 1 week 2 days status post initial surgical intervention. She did have a successful reduction in the emergency room of the left hip. She is not currently in a knee immobilizer or hip abduction brace. She does have her left leg externally rotated and is extremely guarded to passive extension. Concern for redislocation. Recommended radiographs be obtained to evaluate. New radiographs reveal left hip prosthesis is still in good position. Patient to be immediately fit with knee immobilizer. Nursing notified. Okay to resume PT/OT WITH Knee immobilizer in place. WBAT. Incentive spirometry. SCDs. Continue DVT prophylaxis. Pain control. Dr. Rivero notified of readmission. No further recommendations at this time. Continue to monitor. Plan Reviewed history, exam, radiographs and current labs with attending MD and covering surgeon, Dr. Rivero, who agrees with current plan as indicated above. No further recommendations from Dr. Rivero at this time. History of Present Illness HPI Consult date: 10/21/23 Chief complaint: Hip Dislocation,Tachycardia Narrative: 88-year-old female readmitted to the hospital today due to an unwitnessed fall at the [facility] which resulted in a dislocation of the left hip hemiarthroplasty with bipolar prosthesis which was performed on 10/12/[address] Dipesh Rivero. radiographs the emergency room revealed a dislocated left hip hemiarthroplasty. The hip was assessed fully reduced by the emergency room physician. Patient is now in the IMU. Her left leg does appear to be shortened and externally rotated at this time. Concern for recurrent dislocation as patient is not in a knee immobilizer or hip abduction brace. Orthopedics consulted for reevaluation given recent fall/dislocation. Review of Systems Review of Systems: ROS unobtainable: Yes unobtainable due to medical condition ( dementia) PMFSH Past Medical History Medical History Anxiety Breast cancer Coronary artery disease Dementia Depression Hyperlipidemia Hypertension Surgical History Surgical History History of appendectomy History of bilateral mastectomy History of cholecystectomy History of hysterectomy History of permanent cardiac pacemaker placement Family History Family History Other Family history unknown Social History Social History Social History: Surrogate medical decision maker: Ofelia Johnson, daughter. Code status: Full code. Smoking status: Never smoker Alcohol intake: never Substance use: never Substance use type: does not use Living arrangements: with family Spiritual care concerns: No Meds Home Medications and Allergies Home Medications Medication Instructions Recorded Confirmed Type buspirone 15 mg tablet 15 mg PO DAILY 09/19/22 10/20/23 History lovastatin 20 mg tablet 20 mg PO HS 09/19/22 10/20/23 History sertraline 50 mg tablet 100 mg PO DAILY 09/19/22 10/20/23 History tizanidine 2 mg tablet 2 mg PO HS 09/19/22 10/20/23 History acetaminophen 325 mg tablet 650 mg PO Q6H PRN Mild Pain (1-3) 10/16/23 10/20/23 Rx Or Fever #0 tabs diazepam 5 mg tablet 5 mg PO Q8H PRN Muscle Spasm #30 10/16/23 10/20/23 Rx tabs enoxaparin 40 mg/0.4 mL 40 mg (0.4 mL) subcut DAILY #
[2023-10-21] MEDS: SERTRALINE HCL 50 MG TABLET 100 MG PO (11:39)
[2023-10-21] MEDS: FAMOTIDINE 20 MG TABLET PO ×2 (11:39→20:29)
[2023-10-21] MEDS: busPIRone HCL 5 MG TABLET 15 MG PO (11:39)
[2023-10-21] MEDS: MELOXICAM 7.5 MG TABLET PO (11:39)
[2023-10-21] MEDS: SENNA/DOCUSATE SODIUM TABLET 2 TAB PO ×2 (11:40→20:28)
--- NOTE | 2023-10-21 14:13 | ECG_ITS ---
Measurements Intervals Dike Rate: 135 P: 31 ME: 161 QRS: -1 QRSD: 82 T: 63 QT: 356 QTc: 534 Interpretive Statements SINUS TACHYCARDIA LEFT VENTRICULAR HYPERTROPHY WITH ST-T CHANGE BORDERLINE ST-T WAVE ABNORMALITY- HIGH LATERAL LEADS BASELINE WANDER- V1-V2 ABNORMAL ECG COMPARED TO ECG 10/20/2023 16:37:33 NO SIGNIFICANT CHANGES Electronically Signed On 10-21-2023 15:24:19 TECHNICAL SUPPORT DIRECTOR by Leonard Patel D.O.
--- NOTE | 2023-10-21 14:54 | PM.CNCAR ---
Assessment and Plan Assessment and plan (1) Tachycardia: Code(s): R00.0 - Tachycardia, unspecified Status: Acute Assessment and Plan: She has sinus tachycardia. All available EKGs dating back to 09/19/2023 demonstrate sinus tachycardia. She is asymptomatic. In the setting of pulmonary embolism, heart rate is more elevated than usual. Will start on a low-dose beta-maya in the form of Toprol-XL 12.5 mg daily. Give 1st dose now. Cardiology will follow along on an as-needed basis. Please call with questions. (2) Acute pulmonary embolism: Code(s): I26.99 - Other pulmonary embolism without acute cor pulmonale Status: Acute Assessment and Plan: On heparin. Management per hospitalist. (3) 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: Code(s): Z45.010 - Encounter for checking and testing of cardiac pacemaker pulse generator [battery] Status: Acute Assessment and Plan: Will interrogate pacemaker. Patient's son states that he has been made aware that the pacemaker is near end of life and is still trying to decide whether or not to have the generator changed. History of Present Illness History of Present Illness Consult date/time: 10/21/23 14:54 Requesting physician: Evelin Kohler APRN Consult reason: Other (tachycardia) Reason For Visit: Hip Dislocation,Tachycardia Narrative: Tequila Johnson is an 88-year-old female with coronary artery disease, hypertension, and hyperlipidemia. She also has a permanent pacemaker in place. She was recently hospitalized following a fall with left hip fracture requiring total hip replacement. She was she has since to rehab where she unfortunately sustained a fall and returns to the hospital with dislocation of the prosthetic hip. Cardiology is being asked to see her because of tachycardia. Patient herself is confused. Therefore, received most of her history from the son who is at the bedside. Review of Systems Review of Systems: ROS unobtainable: Yes unobtainable due to mental status PMFSH Past Medical History Medical History Anxiety Breast cancer Coronary artery disease Dementia Depression Hyperlipidemia Hypertension Surgical History Surgical History History of appendectomy History of bilateral mastectomy History of cholecystectomy History of hysterectomy History of permanent cardiac pacemaker placement Family History Family History Other Family history unknown Social History Social History Social History: Surrogate medical decision maker: Ofelia Johnson, daughter. Code status: Full code. Smoking status: Never smoker Alcohol intake: never Substance use: never Substance use type: does not use Living arrangements: with family Spiritual care concerns: No Meds Home Medications and Allergies Home Medications Medication Instructions Recorded Confirmed Type buspirone 15 mg tablet 15 mg PO DAILY 09/19/22 10/20/23 History lovastatin 20 mg tablet 20 mg PO HS 09/19/22 10/20/23 History sertraline 50 mg tablet 100 mg PO DAILY 09/19/22 10/20/23 History tizanidine 2 mg tablet 2 mg PO HS 09/19/22 10/20/23 History acetaminophen 325 mg tablet 650 mg PO Q6H PRN Mild Pain (1-3) 10/16/23 10/20/23 Rx Or Fever #0 tabs diazepam 5 mg tablet 5 mg PO Q8H PRN Muscle Spasm #30 10/16/23 10/20/23 Rx tabs enoxaparin 40 mg/0.4 mL 40 mg (0.4 mL) subcut DAILY #0 mL 10/16/23 10/20/23 Rx subcutaneous syringe (Lovenox) famotidine 20 mg tablet 20 mg PO Q12HR #0 tabs 10/16/23 10/20/23 Rx hydrocodone 5 mg-acetaminophen 325 1 tablet PO Q4H PRN Pain Rated 4-6 10/16/23 10/20/23 Rx mg tablet #24 tabs hydrocodone 7.5 mg-acetaminophen 2 tablet PO Q6H PRN Pain Rated 10/16/23 10/20/23 Rx 325 mg tablet 7-10 #24 ta
[2023-10-21] MEDS: METOPROLOL SUCCINATE EXT REL 12.5 MG TABCR PO (16:37)
[2023-10-21 17:48] LABS: Partial Thromboplastin Time 50.5 SECONDS (22.3-36.8)
--- NOTE | 2023-10-21 18:36 | PM.IMPN ---
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: Code(s): Z45.010 - Encounter for checking and testing of cardiac pacemaker pulse generator [battery] Status: Acute Assessment and Plan: -plan for interrogate pacemaker -family aware of pacemaker nearing end of life/family currently trying to decide on having generator changed -continue telemetry monitoring -suspect this is because of elevated BNP -strict I&O (2) Acute pulmonary embolism: Code(s): I26.99 - Other pulmonary embolism without acute cor pulmonale Status: Acute Assessment and Plan: -cardiology consultation -patient is on heparin per protocol -continue monitor PTT/INR updated by RN Heparin infusion, disrupted due to IV infiltration per latest PTT/INR or 50.5 RN will restart dose per protocol (3) Dislocation, hip: Qualifiers: Encounter type: initial encounter Laterality: left Qualified Code(s): S73.005A - Unspecified dislocation of left hip, initial encounter Code(s): S73.006A - Unspecified dislocation of unspecified hip, initial encounter Status: Acute Assessment and Plan: Patient is s/p: Successful reduction performed in the ER on the left hip Orthopedic consult, appreciate recommendation and plan Per ortho New radiographs reveal left hip prosthesis is still in good position. Patient to be immediately fit with knee immobilizer. Nursing notified. Okay to resume PT/OT WITH Knee immobilizer in place. WBAT. -restart home medication hydrocodone, 1 tab Q 4 hours p.r.n. for pain (4) Tachycardia: Code(s): R00.0 - Tachycardia, unspecified Status: Acute Assessment and Plan: Chronic, history in sinus tachycardia, asymptomatic -cardiology consulted appreciate recommendation and plan -continue telemetry monitoring -continue low-dose beta-maya Toprol-XL 12.5 mg daily per Cardiology (5) Leukocytosis: Code(s): D72.829 - Elevated white blood cell count, unspecified Status: Resolved Assessment and Plan: -continue to monitor repeat CBC in the a.m. (6) Tachycardia: Code(s): R00.0 - Tachycardia, unspecified Status: Acute Assessment and Plan: See above (7) Low hemoglobin: Code(s): D64.9 - Anemia, unspecified Status: Acute Assessment and Plan: chronic, hgb is 8.1 continue to monitor H&H q 6 hours -transfuse PRBC if hgb <7 (8) Anxiety: Code(s): F41.9 - Anxiety disorder, unspecified Status: Acute Assessment and Plan: -restart home medication Sertraline 100 mg daily p.o. Diazepam 5 mg q.8 hours p.r.n. (9) Dementia with behavioral disturbance: Code(s): F03.918 - Unspecified dementia, unspecified severity, with other behavioral disturbance Status: Acute Assessment and Plan: restart home medications, patient is actively pulling on medical lines initial restraint order on 10/20/2023, reassessment reveals pt continues to pull on lines, hitting staff when trying to perform interventions. continue home medication Initiate fall precautions Subjective Date/time seen: 10/21/23 18:36 Interval history: ?This is an 88-year-old female with past medical history significant for generalized anxiety disorder, depression, hyperlipidemia, hypertension, coronary artery disease, breast cancer. patient recently discharged due to fall with left hip fracture status post total hip replacement was sent to rehabilitation where patient had a fall with dislocation of prosthetic hip.? Preliminary workup was significant CT angiogram of the chest showed acute pulmonary embolism.? History has been obtained from who was at bedside. Review of Systems Review of Systems: ROS unobtainable: Yes unobtainable due to medical condition ( dementia) Objective Data Vital Signs Vital Signs: Vital Signs - 24 hr 10/20/23 18:41 10/20/23 18:45 10/20/23 18:47 Temperature Puls
[2023-10-21] MEDS: ACETAMINOPHEN 325 MG TABLET 650 MG PO (20:28)
[2023-10-21] MEDS: TIZANIDINE HCL 2 MG TABLET PO (20:29)
[2023-10-21] MEDS: diazePAM (*CRX) 5 MG TABLET PO (20:29)
[2023-10-21] MEDS: LOVASTATIN 20 MG TABLET PO (20:29)
[2023-10-21 23:06] LABS: Partial Thromboplastin Time 56.7 SECONDS (22.3-36.8)
[2023-10-21] MEDS: HEPARIN SODIUM 5,000 UNITS/ML VIAL 2000 UNITS IV PUSH (23:41)
[2023-10-22] VITALS (18 sets, daily range): BP systolic 99–141; BP diastolic 51–96; PULSE 102–135; RESP 18–24; TEMP 36.4–36.9; O2SAT 96–100
[2023-10-22] MEDS: SODIUM CHLORIDE 0.9% IV 1,000 ML 125 ML IV CONT (02:09)
[2023-10-22] MEDS: ACETAMINOPHEN 325 MG TABLET 650 MG PO ×4 (02:09→20:00)
[2023-10-22] MEDS: HEPARIN SOD/D5W 100 UNITS/ML 25,000 UNITS/250 ML BAG 9 UNITS IV CONT (04:06)
[2023-10-22 05:42] LABS: Partial Thromboplastin Time 118.2 SECONDS (22.3-36.8)
[2023-10-22] MEDS: SERTRALINE HCL 50 MG TABLET 100 MG PO (09:36)
[2023-10-22] MEDS: METOPROLOL SUCCINATE EXT REL 12.5 MG TABCR PO (09:36)
[2023-10-22] MEDS: busPIRone HCL 5 MG TABLET 15 MG PO (09:37)
[2023-10-22] MEDS: MELOXICAM 7.5 MG TABLET PO (09:37)
[2023-10-22] MEDS: FAMOTIDINE 20 MG TABLET PO ×2 (09:37→20:00)
[2023-10-22 12:02] LABS: Partial Thromboplastin Time 82.2 SECONDS (22.3-36.8)
--- NOTE | 2023-10-22 13:45 | PM.PNORT ---
Progress Note: A&P Assessment and Plan (1) Dementia with behavioral disturbance: Code(s): F03.918 - Unspecified dementia, unspecified severity, with other behavioral disturbance Status: Acute (2) Acute pulmonary embolism: Qualifiers: Pulmonary embolism type: other Acute cor pulmonale presence: without acute cor pulmonale Qualified Code(s): I26.99 - Other pulmonary embolism without acute cor pulmonale Code(s): I26.99 - Other pulmonary embolism without acute cor pulmonale Status: Acute (3) Dislocation, hip: Qualifiers: Encounter type: initial encounter Laterality: left Qualified Code(s): S73.005A - Unspecified dislocation of left hip, initial encounter Code(s): S73.006A - Unspecified dislocation of unspecified hip, initial encounter Status: Acute Assessment and Plan: 10 days status post left hip hemiarthroplasty. 2 days status post reduction of hemiarthroplasty dislocation. knee immobilizer in place. Leg neurovascularly intact. Pain appears to be well controlled. Medical treatment for pulmonary embolism. Plan to start PT/ OT today. Will most likely be slow progress. Will follow. (4) Closed subcapital fracture of left femur: Qualifiers: Encounter type: subsequent encounter Fracture healing: with routine healing Qualified Code(s): S72.012D - Unspecified intracapsular fracture of left femur, subsequent encounter for closed fracture with routine healing Code(s): S72.012A - Unspecified intracapsular fracture of left femur, initial encounter for closed fracture Status: Acute Subjective Subjective Date/Time Seen: 10/22/23 13:45 Post Op day: 10 Principal diagnosis: Left hip fracture /dislocation Interval history: patient in bed awake but does not respond to questions or follow commands. Appears comfortable. Family at bedside. Exam Resp: Effort & Inspection: normal respiratory effort Cardio: Rate: regular rate Rhythm: regular rhythm Skin: General skin exam: normal color and wounds noted (incision left hip C/D/I ) Wounds: wounds noted (incision left hip C/D/I ) Extrem: Left lower extremity: hip/thigh Details: tenderness Location: of the hip Location: laterally and anteriorly, swelling (thigh soft ) Location: of the hip (lateral. ), abnormal ROM (limitations with internal/external rotation and flexion/extension due to recent surgical intervention ), deformity ( Externally rotated, guarded against extension.) Location: of the hip and other (incision lateral hip c/d/i. ), knee Details: normal to inspection and normal ROM; no tenderness and no swelling, lower leg (Negative Juan Antonio's Sign ) Details: no edema, ankle (+ankle dorsiflexion/plantarflexion ) Details: normal to inspection, no edema and normal ROM; no tenderness, no swelling and no warmth and foot Details: normal capillary refill, toes with normal ROM, vascular exam Details: dorsalis pedis pulse present and motor-sensory exam light-touch normal in all toes; no tenderness, no ecchymosis and no crepitus Objective Data Vital Signs Vital Signs: Vital Signs - 24 hr 10/21/23 16:05 10/21/23 16:37 10/21/23 20:00 Temperature 98.2 F 97.9 F Pulse Rate 138 H 140 H 146 H Respiratory Rate 22 H 20 Blood Pressure 134/69 124/98 H Pulse Oximetry 97 99 Oxygen Delivery 10/21/23 14:00 10/21/23 16:00 10/21/23 18:00 Temperature Pulse Rate 152 H 138 H 154 H Respiratory Rate Blood Pressure Pulse Oximetry Oxygen Delivery 10/21/23 23:55 10/21/23 20:00 10/21/23 20:00 Temperature 97.6 F Pulse Rate 132 H 146 H 142 H Respiratory Rate 20 20 Blood Pressure 115/60 Pulse Oximetry 98 99 Oxygen Delivery Room Air 10/21/23 22:00 10/22/23 00:00 10/22/23 01:54 Temperature Pulse Rate 127 H 127 H 127 H Respiratory Rate Blood Pressure Pulse Oximetry Oxygen Delivery 10/22/23 00:00 10/22/23 04:00 10/22/23 04:00 Temperature 98.5 F
--- NOTE | 2023-10-22 14:53 | PCOTNOTE ---
Attempted OT evaluation; pt. was asleep and when woke up she refused to move around or sit up. Pt. feel back asleep. Will attempt again as able.
[2023-10-22 18:40] LABS: Partial Thromboplastin Time 76.5 SECONDS (22.3-36.8)
--- NOTE | 2023-10-22 19:22 | PM.IMPN ---
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: Code(s): Z45.010 - Encounter for checking and testing of cardiac pacemaker pulse generator [battery] Status: Acute Assessment and Plan: -plan for interrogate pacemaker -family aware of pacemaker nearing end of life/family currently trying to decide on having generator changed -continue telemetry monitoring -continue monitor BNP -strict I&O (2) Acute pulmonary embolism: Qualifiers: Pulmonary embolism type: other Acute cor pulmonale presence: without acute cor pulmonale Qualified Code(s): I26.99 - Other pulmonary embolism without acute cor pulmonale Code(s): I26.99 - Other pulmonary embolism without acute cor pulmonale Status: Acute Assessment and Plan: -cardiology consultation -patient is on heparin per protocol -continue monitor PTT/INR updated by RN Heparin infusion, disrupted due to IV infiltration per latest PTT/INR or 50.5 RN will restart dose per protocol (3) Dislocation, hip: Qualifiers: Encounter type: initial encounter Laterality: left Qualified Code(s): S73.005A - Unspecified dislocation of left hip, initial encounter Code(s): S73.006A - Unspecified dislocation of unspecified hip, initial encounter Status: Acute Assessment and Plan: Patient is s/p: Successful reduction performed in the ER on the left hip Orthopedic consult, appreciate recommendation and plan Per ortho: New radiographs reveal left hip prosthesis is still in good position. Patient to be immediately fit with knee immobilizer. Nursing notified. Okay to resume PT/OT WITH Knee immobilizer in place. WBAT. -restart home medication hydrocodone, 1 tab Q 4 hours p.r.n. for pain (4) Tachycardia: Code(s): R00.0 - Tachycardia, unspecified Status: Acute Assessment and Plan: Chronic, history in sinus tachycardia, asymptomatic -cardiology consulted appreciate recommendation and plan -continue telemetry monitoring -continue low-dose beta-maya Toprol-XL 12.5 mg daily per Cardiology (5) Leukocytosis: Code(s): D72.829 - Elevated white blood cell count, unspecified Status: Resolved Assessment and Plan: -continue to monitor repeat CBC in the a.m. (6) Low hemoglobin: Code(s): D64.9 - Anemia, unspecified Status: Acute Assessment and Plan: chronic, hgb is 8.1 continue to monitor H&H q 6 hours -transfuse PRBC if hgb <7 (7) Anxiety: Code(s): F41.9 - Anxiety disorder, unspecified Status: Acute Assessment and Plan: -restart home medication Sertraline 100 mg daily p.o. Diazepam 5 mg q.8 hours p.r.n. (8) Dementia with behavioral disturbance: Code(s): F03.918 - Unspecified dementia, unspecified severity, with other behavioral disturbance Status: Acute Assessment and Plan: restart home medications, patient is actively pulling on medical lines initial restraint order on 10/20/2023, reassessment reveals pt continues to pull on lines, hitting staff when trying to perform interventions. continue home medication Initiate fall precautions Subjective Date/time seen: 10/22/23 19:22 Interval history: This is an 88-year-old female with past medical history significant for generalized anxiety disorder, depression, hyperlipidemia, hypertension, coronary artery disease, breast cancer. patient recently discharged due to fall with left hip fracture status post total hip replacement was sent to rehabilitation where patient had a fall with dislocation of prosthetic hip.? Preliminary workup was significant CT angiogram of the chest showed acute pulmonary embolism.? History has been obtained from who was at bedside. ?10/22/2023: patient in bed awake but does not respond to questions or follow commands.? Appears comfortable.? Objective Data Vital Signs Vital Signs: Vital Signs - 24 hr 10/21/23 20:00
[2023-10-22] MEDS: LOVASTATIN 20 MG TABLET PO (20:00)
[2023-10-22] MEDS: TIZANIDINE HCL 2 MG TABLET PO (20:00)
[2023-10-22] MEDS: hydrOXYzine pamoate 25 MG CAPSULE 50 MG PO (20:00)
[2023-10-22] MEDS: diazePAM (*CRX) 5 MG TABLET PO (20:00)
[2023-10-23] VITALS (26 sets, daily range): BP systolic 109–134; BP diastolic 53–90; PULSE 88–133; RESP 18–24; TEMP 35.9–36.9; O2SAT 93–100
[2023-10-23 05:22] LABS: Alanine Aminotransferase 30 U/L (6-35); Albumin Level 2.4 g/dL (3.5-5.1); Alkaline Phosphatase 56 U/L (38-126); Anion Gap 7 mmol/L (8-16); Aspartate Amino Transferase 53 U/L (14-36); Bilirubin,Total 0.8 mg/dL (0.2-1.3); Blood Urea Nitrogen 15 mg/dL (7-17); Calcium 7.2 mg/dL (8.4-10.2); Carbon Dioxide 22 mmol/L (22-30); Chloride 109 mmol/L (98-107); Estimated CRCL calculation 42 ml/min; Estimated Glomerular Filt Rate > 60; Glucose 90 mg/dL (65-110); Potassium 3.2 mmol/L (3.4-5.0); Sodium 138 mmol/L (137-145)
[2023-10-23 05:25] LABS: Partial Thromboplastin Time 44.6 SECONDS (22.3-36.8)
[2023-10-23 05:29] LABS: NT Pro B Type Natriuretic Pept 12200 pg/mL (19.9-100)
[2023-10-23 05:55] LABS: Basophils Percent Auto 0.2 % (0.2-1.2); Eosinophils Absolute Auto 0.2 K/mm3 (0-0.3); Eosinophils Percent Auto 1.6 % (0-4.4); Immature Granulocyte Absolute 0.17 K/mm3 (0.00-0.031); Immature Granulocyte Percent A 1.4 % (0-0.5); Lymphocytes Absolute Auto 1.28 K/mm3 (0.9-3.2); Lymphocytes Percent Auto 10.5 % (18.3-44.2); Mean Corpuscular HGB Conc 29.2 g/dl (32-36); Mean Corpuscular Hemoglobin 30.6 pg (26-34); Mean Corpuscular Volume 104.9 fl (80-100); Monocytes Absolute Auto 0.7 K/mm3 (0.1-0.6); Monocytes Percent Auto 5.9 % (2.6-8.5); Neutrophils Absolute Auto 9.8 K/mm3 (1.3-6.7); Neutrophils Percent Auto 80.4 % (45.5-73.1); Platelet Count Result 342 k/mm3 (150-375); Red Blood Count 1.83 M/mm3 (4.2-5.4); Red Cell Distribution Width 14.8 % (11.5-14.5); White Blood Count 12.2 K/mm3 (4.5-10.0)
[2023-10-23 05:59] LABS: Hematocrit 19.2 % (37.0-47.0); Hemoglobin 5.6 g/dL (12.0-15.0)
[2023-10-23 06:39] LABS: Anisocytosis 1+ (NORMAL); Hypochromasia 1+ (NORMAL); Platelet Estimate Adequate (Adequate)
[2023-10-23 06:40] LABS: Schistocytes None Seen (NORMAL)
[2023-10-23] MEDS: ACETAMINOPHEN 325 MG TABLET 650 MG PO ×3 (09:02→20:54)
[2023-10-23] MEDS: SERTRALINE HCL 50 MG TABLET 100 MG PO (09:02)
[2023-10-23] MEDS: METOPROLOL SUCCINATE EXT REL 12.5 MG TABCR PO (09:03)
[2023-10-23] MEDS: busPIRone HCL 5 MG TABLET 15 MG PO (09:03)
[2023-10-23] MEDS: SODIUM CHLORIDE 0.9% IV 250 ML 30 ML IV CONT (09:03)
[2023-10-23] MEDS: FAMOTIDINE 20 MG TABLET PO ×2 (09:03→20:55)
--- NOTE | 2023-10-23 09:22 | PM.PNORT ---
Progress Note: A&P Assessment and Plan (1) Dementia with behavioral disturbance: Code(s): F03.918 - Unspecified dementia, unspecified severity, with other behavioral disturbance Status: Acute (2) Acute pulmonary embolism: Qualifiers: Pulmonary embolism type: other Acute cor pulmonale presence: without acute cor pulmonale Qualified Code(s): I26.99 - Other pulmonary embolism without acute cor pulmonale Code(s): I26.99 - Other pulmonary embolism without acute cor pulmonale Status: Acute (3) Dislocation, hip: Qualifiers: Encounter type: initial encounter Laterality: left Qualified Code(s): S73.005A - Unspecified dislocation of left hip, initial encounter Code(s): S73.006A - Unspecified dislocation of unspecified hip, initial encounter Status: Acute Assessment and Plan: 11 days status post left hip hemiarthroplasty. 3 days status post reduction of hemiarthroplasty dislocation. knee immobilizer in place. Leg neurovascularly intact. Pain appears to be well controlled. Medical treatment for pulmonary embolism. Continue PT/ OT today. Will most likely be slow progress. Will follow. (4) Closed subcapital fracture of left femur: Qualifiers: Encounter type: subsequent encounter Fracture healing: with routine healing Qualified Code(s): S72.012D - Unspecified intracapsular fracture of left femur, subsequent encounter for closed fracture with routine healing Code(s): S72.012A - Unspecified intracapsular fracture of left femur, initial encounter for closed fracture Status: Acute Subjective Subjective Date/Time Seen: 10/23/23 09:22 Post Op day: 11 Principal diagnosis: Left hip fracture /dislocation Interval history: patient in bed awake but does not respond to questions or follow commands. Appears comfortable. Exam Resp: Effort & Inspection: normal respiratory effort Cardio: Rate: regular rate Rhythm: regular rhythm Skin: General skin exam: normal color and wounds noted (incision left hip C/D/I ) Wounds: wounds noted (incision left hip C/D/I ) Extrem: Left lower extremity: hip/thigh Details: tenderness Location: of the hip Location: laterally and anteriorly, swelling (thigh soft ) Location: of the hip (lateral. ), abnormal ROM (limitations with internal/external rotation and flexion/extension due to recent surgical intervention ), deformity ( Externally rotated, guarded against extension.) Location: of the hip and other (incision lateral hip c/d/i. ), knee Details: normal to inspection and normal ROM; no tenderness and no swelling, lower leg (Negative Juan Antonio's Sign ) Details: no edema, ankle (+ankle dorsiflexion/plantarflexion ) Details: normal to inspection, no edema and normal ROM; no tenderness, no swelling and no warmth and foot Details: normal capillary refill, toes with normal ROM, vascular exam Details: dorsalis pedis pulse present and motor-sensory exam light-touch normal in all toes; no tenderness, no ecchymosis and no crepitus Objective Data Vital Signs Vital Signs: Vital Signs - 24 hr 10/22/23 09:36 10/22/23 11:36 10/22/23 10:00 Temperature 97.9 F Pulse Rate 127 H 132 H 127 H Respiratory Rate 24 H Blood Pressure 134/83 Pulse Oximetry 100 Oxygen Delivery 10/22/23 12:00 10/22/23 14:00 10/22/23 12:00 Temperature Pulse Rate 127 H 128 H Respiratory Rate Blood Pressure Pulse Oximetry Oxygen Delivery Room Air 10/22/23 16:00 10/22/23 15:58 10/22/23 16:00 Temperature 97.5 F L Pulse Rate 126 H 135 H Respiratory Rate 24 H Blood Pressure 126/96 H Pulse Oximetry 99 Oxygen Delivery Room Air 10/22/23 16:00 10/22/23 18:00 10/22/23 19:48 Temperature 98.1 F Pulse Rate 108 H 110 H Respiratory Rate 20 Blood Pressure 141/88 H Pulse Oximetry 97 Oxygen Delivery Room Air 10/22/23 23:48 10/22/23 20:00 10/22/23 20:00 Temperature 98.2 F Pulse Rate 102 H 12
--- NOTE | 2023-10-23 09:31 | PM.IMPN ---
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: Code(s): Z45.010 - Encounter for checking and testing of cardiac pacemaker pulse generator [battery] Status: Acute Assessment and Plan: -son is by the bedside who reports he is unable to decide if pacemaker should be interrogated or battery replaced at this time -continue telemetry monitoring -continue monitor BNP -strict I&O (2) Acute pulmonary embolism: Qualifiers: Acute cor pulmonale presence: without acute cor pulmonale Pulmonary embolism type: other Qualified Code(s): I26.99 - Other pulmonary embolism without acute cor pulmonale Code(s): I26.99 - Other pulmonary embolism without acute cor pulmonale Status: Acute Assessment and Plan: - spoke with senior clinical study manager, may consider IVC filter placement, would like palliative care evaluation and discussion with family to make sure they want to pursue aggressive medical management -d/c heparin, hgb is 5.4 -trend H&H every 6 hours -continue transfuse PRBC maintain hemoglobin above 8 (3) Dislocation, hip: Qualifiers: Encounter type: initial encounter Laterality: left Qualified Code(s): S73.005A - Unspecified dislocation of left hip, initial encounter Code(s): S73.006A - Unspecified dislocation of unspecified hip, initial encounter Status: Acute Assessment and Plan: Patient is s/p: POD 11, left hip hemiarthroplasty, 3 days POD reduction of hemiarthroplasty dislocation, knee immobilizer in place Orthopedic consult, appreciate recommendation and plan Okay to resume PT/OT WITH Knee immobilizer in place. WBAT. -restart home medication hydrocodone, 1 tab Q 4 hours p.r.n. for pain (4) Tachycardia: Code(s): R00.0 - Tachycardia, unspecified Status: Acute Assessment and Plan: In the setting of PE -cardiology consulted appreciate recommendation and plan -continue telemetry monitoring -continue low-dose beta-maya Toprol-XL 12.5 mg daily per Cardiology (5) Leukocytosis: Code(s): D72.829 - Elevated white blood cell count, unspecified Status: Resolved Assessment and Plan: -continue to monitor repeat CBC in the a.m. (6) Low hemoglobin: Code(s): D64.9 - Anemia, unspecified Status: Acute Assessment and Plan: chronic, hgb is 5.4 continue to monitor H&H q 6 hours -transfuse PRBC if hgb <7 (7) Anxiety: Code(s): F41.9 - Anxiety disorder, unspecified Status: Acute Assessment and Plan: -restart home medication Sertraline 100 mg daily p.o. Diazepam 5 mg q.8 hours p.r.n. (8) Dementia with behavioral disturbance: Code(s): F03.918 - Unspecified dementia, unspecified severity, with other behavioral disturbance Status: Acute Assessment and Plan: restart home medications, patient is actively pulling on medical lines -initiate order for bedside sitter for medical safety surveillance for 24 hrs every day Initiate fall precautions Subjective Date/time seen: 10/23/23 09:31 Interval history: Interval history: This is an 88-year-old female with past medical history significant for generalized anxiety disorder, depression, hyperlipidemia, hypertension, coronary artery disease, breast cancer. patient recently discharged due to fall with left hip fracture status post total hip replacement was sent to rehabilitation where patient had a fall with dislocation of prosthetic hip.? Preliminary workup was significant CT angiogram of the chest showed acute pulmonary embolism.? History has been obtained from who was at bedside. ?10/22/2023: patient in bed awake but does not respond to questions or follow commands.? Appears comfortable.? 10/23/2023: pt seen this a.m, she is awake, pleasantly ROS, or HPI. She shakes her head no when asked if she is in any pain, no facial grimace or guarding during exam. Review of Systems Review of Systems: LIZETH
--- NOTE | 2023-10-23 10:53 | PM.PNCARD ---
Progress Note: A&P Assessment and Plan (1) Tachycardia: Code(s): R00.0 - Tachycardia, unspecified Status: Acute Assessment and Plan: Elevated heart rate in the setting of PE. Continue low-dose metoprolol tartrate with holding parameters. Echocardiogram showed severe LV systolic dysfunction. May use furosemide on a p.r.n. basis. Due to patient's progressive functional decline and cognitive impairment and multiple comorbidities, spoke with patient about further management options including palliative care evaluation. Primary team will address code status. Patient's overall prognosis guarded. (2) Acute pulmonary embolism: Qualifiers: Pulmonary embolism type: other Acute cor pulmonale presence: without acute cor pulmonale Qualified Code(s): I26.99 - Other pulmonary embolism without acute cor pulmonale Code(s): I26.99 - Other pulmonary embolism without acute cor pulmonale Status: Acute Assessment and Plan: Was on heparin which has been put on hold due to significant drop in hemoglobin. May consider IVC filter placement after palliative care evaluation and if patient's family would like to pursue aggressive medical management. 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 Subjective Date/time seen: 10/23/23 10:53 Interval history: Date of service: 10/23/2023 Interval history: Patient is lying down in the bed, nonverbal. Patient's son in the room and staff nurse in the room. Exam Narrative: PHYSICAL EXAMINATION: GENERAL: Elderly female, nonverbal MENTAL STATUS: Nonverbal EYES: Extraocular movements intact, pallor EARS: External ears appear normal NOSE: Normal and patent, no discharge MOUTH: Mucous membranes moist, tongue normal NECK: Supple, no JVD CHEST: Decreased breath sounds, decreased effort HEART: Muffled heart sounds; tachycardia, irregular ABDOMEN: Soft, nontender NEUROLOGICAL: Delirious MUSCULOSKELETAL: No major deformity, no amputation EXTREMITIES: Left leg immobilized SKIN: no rash on the exposed area, no cyanosis PSYCHIATRIC: No agitation Objective Data Vital Signs Vital Signs: Vital Signs - 24 hr 10/22/23 11:36 10/22/23 12:00 10/22/23 14:00 Temperature 36.6 C Pulse Rate 132 H 127 H 128 H Respiratory Rate 24 H Blood Pressure 134/83 Pulse Oximetry 100 Oxygen Delivery 10/22/23 12:00 10/22/23 16:00 10/22/23 15:58 Temperature 36.4 C L Pulse Rate 126 H Respiratory Rate 24 H Blood Pressure 126/96 H Pulse Oximetry 99 Oxygen Delivery Room Air Room Air 10/22/23 16:00 10/22/23 16:00 10/22/23 18:00 Temperature Pulse Rate 135 H 108 H Respiratory Rate Blood Pressure Pulse Oximetry Oxygen Delivery Room Air 10/22/23 19:48 10/22/23 23:48 10/22/23 20:00 Temperature 36.7 C 36.8 C Pulse Rate 110 H 102 H 122 H Respiratory Rate 20 22 H Blood Pressure 141/88 H 112/55 L Pulse Oximetry 97 98 Oxygen Delivery 10/22/23 20:00 10/22/23 22:00 10/23/23 00:00 Temperature Pulse Rate 110 H 113 H 102 H Respiratory Rate 20 22 H Blood Pressure Pulse Oximetry 97 98 Oxygen Delivery Room Air Room Air 10/23/23 00:00 10/23/23 02:00 10/23/23 04:30 Temperature 36.9 C Pulse Rate 100 113 H 114 H Respiratory Rate 20 Blood Pressure 128/61 Pulse Oximetry 96 Oxygen Delivery 10/23/23 04:00 10/23/23 04:00 10/23/23 06:00 Temperature Pulse Rate 114 H 114 H 114 H Respiratory Rate 20 Blood Pressure Pulse Oximetry 96 Oxygen Delivery Room Air 10/23/23 08:00 10/23/23 09:03 10/23/23 09:40 Temperature 36.4 C 36.4 C Pulse Rate 121 H 121 H 123 H Respiratory Rate 24 H 22 H Blood Pressure 119/53 L 132
[2023-10-23 13:38] LABS: IFOB Positive Control Positive; Immunochemical Fecal Occult Bl Negative (N)
[2023-10-23] MEDS: FUROSEMIDE INJ 40 MG/4 ML VIAL 20 MG IV PUSH (13:43)
[2023-10-23] MEDS: POTASSIUM CHLORIDE 20 MEQ ER TABLET 40 MEQ PO (14:02)
--- NOTE | 2023-10-23 14:03 | PCPTNOTE ---
attempted eval, pt currently getting blood work done and informed to come back later
[2023-10-23] MEDS: LOVASTATIN 20 MG TABLET PO (20:55)
[2023-10-23] MEDS: METOPROLOL TARTRATE 12.5 MG TABLET PO (20:55)
[2023-10-23] MEDS: TIZANIDINE HCL 2 MG TABLET PO (20:55)
[2023-10-23] MEDS: hydrOXYzine pamoate 25 MG CAPSULE 50 MG PO (20:56)
[2023-10-23] MEDS: diazePAM (*CRX) 5 MG TABLET PO (20:56)
[2023-10-24] VITALS (17 sets, daily range): BP systolic 102–143; BP diastolic 57–89; PULSE 79–133; RESP 20–24; TEMP 36.3–36.7; O2SAT 93–98; BMI 10.0
[2023-10-24 05:24] LABS: Basophils Absolute Auto 0.1 K/mm3 (0.0-0.1); Basophils Percent Auto 0.2 % (0.2-1.2); Hemoglobin 9.4 g/dL (12.0-15.0); Immature Granulocyte Absolute 0.23 K/mm3 (0.00-0.031); Immature Granulocyte Percent A 0.9 % (0-0.5); Lymphocytes Absolute Auto 0.61 K/mm3 (0.9-3.2); Lymphocytes Percent Auto 2.5 % (18.3-44.2); Mean Corpuscular HGB Conc 30.3 g/dl (32-36); Mean Corpuscular Volume 95.7 fl (80-100); Mean Platelet Volume 9.8 fl (7.4-10.4); Monocytes Absolute Auto 1.1 K/mm3 (0.1-0.6); Monocytes Percent Auto 4.4 % (2.6-8.5); Neutrophils Absolute Auto 22.8 K/mm3 (1.3-6.7); Nucleated Red Blood Cells Perc 0.1 % (0.0-0.2); Platelet Count Result 372 k/mm3 (150-375); Red Blood Count 3.24 M/mm3 (4.2-5.4); Red Cell Distribution Width 20.6 % (11.5-14.5); White Blood Count 24.8 K/mm3 (4.5-10.0)
[2023-10-24 05:45] LABS: Alanine Aminotransferase 33 U/L (6-35); Albumin Level 2.6 g/dL (3.5-5.1); Alkaline Phosphatase 65 U/L (38-126); Anion Gap 9 mmol/L (8-16); Aspartate Amino Transferase 55 U/L (14-36); Bilirubin,Total 1.2 mg/dL (0.2-1.3); Blood Urea Nitrogen 16 mg/dL (7-17); Calcium 7.4 mg/dL (8.4-10.2); Carbon Dioxide 20 mmol/L (22-30); Chloride 109 mmol/L (98-107); Estimated CRCL calculation 42 ml/min; Estimated Glomerular Filt Rate > 60; Glucose 103 mg/dL (65-110); Potassium 4.3 mmol/L (3.4-5.0); Sodium 138 mmol/L (137-145)
[2023-10-24 06:41] LABS: Partial Thromboplastin Time 30.5 SECONDS (22.3-36.8)
[2023-10-24 07:30] LABS: Anisocytosis 1+ (NORMAL); Hypochromasia 1+ (NORMAL); Platelet Estimate Adequate (Adequate); Poikilocytosis 1+ (NORMAL); Schistocytes Rare (NORMAL)
[2023-10-24] MEDS: METOPROLOL TARTRATE 12.5 MG TABLET PO (08:57)
[2023-10-24] MEDS: busPIRone HCL 5 MG TABLET 15 MG PO (08:58)
[2023-10-24] MEDS: SERTRALINE HCL 50 MG TABLET 100 MG PO (09:00)
[2023-10-24] MEDS: ACETAMINOPHEN 325 MG TABLET 650 MG PO ×3 (09:00→17:19)
--- NOTE | 2023-10-24 13:52 | PM.PNCARD ---
Progress Note: A&P Assessment and Plan (1) Cardiomyopathy: Qualifiers: Cardiomyopathy type: dilated Qualified Code(s): I42.0 - Dilated cardiomyopathy Code(s): I42.9 - Cardiomyopathy, unspecified Status: Acute Assessment and Plan: Patient appears to be reasonably compensated at this time on room air. Echocardiogram showed severe LV systolic dysfunction EF 25% mild pulmonary hypertension RVSP 41 mm Hg. Monitor volume status closely. May use furosemide on a p.r.n. basis. Palliative care appropriate given comorbidities and advanced age. Primary team will address code status. Patient appears to be fairly euvolemic. She is not currently on diuretic therapy Patient's overall prognosis guarded. Etiology of cardiomyopathy remains unclear. If palliative care, comfort measures desired pursue conservative management. Medical therapy as tolerated, may consider Entresto 12/13 mg twice daily as BP permits. Caution to avoid significant hypotension and fall risk. Need be cautious as patient was significantly hypertensive SBP greater than 200 mmHg at presentation and presently relatively hypotensive. Will change metoprolol tartrate to metoprolol succinate 25 mg daily beginning tomorrow morning. Overall, patient very high risk for complications, life-threatening or fatal ventricular arrhythmias due to severe LV dysfunction and decompensated heart failure. May continue telemetry for now. (2) Acute pulmonary embolism: Qualifiers: Pulmonary embolism type: other Acute cor pulmonale presence: without acute cor pulmonale Qualified Code(s): I26.99 - Other pulmonary embolism without acute cor pulmonale Code(s): I26.99 - Other pulmonary embolism without acute cor pulmonale Status: Acute Assessment and Plan: Was on heparin for anticoagulation which has been put on hold due to significant drop in hemoglobin requiring transfusion and concern for bleeding risk. Patient at high risk for additional complications such as respiratory compromise and or . May consider IVC filter placement after palliative care evaluation and if patient's family would like to pursue aggressive medical management. (3) Anemia: Code(s): D64.9 - Anemia, unspecified Status: Acute Assessment and Plan: Hemoglobin stable status post transfusion. Continue to follow H&H closely. Monitor for signs of bleeding. Off anticoagulation. DVT prophylaxis with SCDs. Not a candidate for anticoagulation at this time. (4) Tachycardia: Code(s): R00.0 - Tachycardia, unspecified Status: Acute Assessment and Plan: Elevated heart rate in the setting of PE, anemia, and severe LV systolic dysfunction. This has improved on beta-maya therapy. Continue low-dose metoprolol tartrate with holding parameters. (5) 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: Code(s): Z45.010 - Encounter for checking and testing of cardiac pacemaker pulse generator [battery] Status: Acute Assessment and Plan: Can be managed as an outpatient based on patient's clinical course and after palliative care evaluation. Subjective Date/time seen: Date of service: 10/24/23 13:52 Interval history: Follow-up for cardiomyopathy, elevated troponin Patient confused but pleasant. Sitter at bedside. New issues overnight. Patient responsive, breathing comfortably, broken speech speech somewhat repetitive otherwise cooperative and in no apparent distress. Patient appeared quite interested in telling me about her pacemaker Review of Systems Review of Systems: ROS unobtainable: Yes unobtainable due to mental status Exam Narrative: PHYSICAL EXAMINATION: GENERAL: Elderly female, difficult to follow due to broken speech otherwise pleasant, alert, breathing comfortably sitting upright in bed MENTAL STATUS: Nonverbal EYES: Extraocular movements intact, pallor EARS: External ears appear normal NOSE: Normal and patent, no
--- NOTE | 2023-10-24 16:36 | PM.IMPN ---
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: Code(s): Z45.010 - Encounter for checking and testing of cardiac pacemaker pulse generator [battery] Status: Acute Assessment and Plan: -son is by the bedside who reports he is unable to decide if pacemaker should be interrogated or battery replaced at this time -continue telemetry monitoring -continue monitor BNP -strict I&O (2) Acute pulmonary embolism: Qualifiers: Pulmonary embolism type: other Acute cor pulmonale presence: without acute cor pulmonale Qualified Code(s): I26.99 - Other pulmonary embolism without acute cor pulmonale Code(s): I26.99 - Other pulmonary embolism without acute cor pulmonale Status: Acute Assessment and Plan: - spoke with ob/gyn doctor, may consider IVC filter placement, would like palliative care evaluation and discussion with family to make sure they want to pursue aggressive medical management -Hgb is 9.4, s/p 2 units of blood given -trend H&H every 6 hours x 1 -continue transfuse PRBC maintain hemoglobin above 8 (3) Dislocation, hip: Qualifiers: Encounter type: initial encounter Laterality: left Qualified Code(s): S73.005A - Unspecified dislocation of left hip, initial encounter Code(s): S73.006A - Unspecified dislocation of unspecified hip, initial encounter Status: Acute Assessment and Plan: Patient is s/p: POD 12, left hip hemiarthroplasty, 4 days POD reduction of hemiarthroplasty dislocation, knee immobilizer in place Orthopedic consult, appreciate recommendation and plan Okay to resume PT/OT WITH Knee immobilizer in place. WBAT. -restart home medication hydrocodone, 1 tab Q 4 hours p.r.n. for pain (4) Tachycardia: Code(s): R00.0 - Tachycardia, unspecified Status: Acute Assessment and Plan: In the setting of PE -cardiology consulted appreciate recommendation and plan -continue telemetry monitoring -continue low-dose beta-maya Toprol-XL 12.5 mg daily per Cardiology (5) Leukocytosis: Code(s): D72.829 - Elevated white blood cell count, unspecified Status: Resolved Assessment and Plan: -continue to monitor repeat CBC in the a.m. (6) Low hemoglobin: Code(s): D64.9 - Anemia, unspecified Status: Acute Assessment and Plan: chronic, hgb is stable at 9.4 continue to monitor H&H -transfuse PRBC if hgb <7 (7) Anxiety: Code(s): F41.9 - Anxiety disorder, unspecified Status: Acute Assessment and Plan: -restart home medication Sertraline 100 mg daily p.o. Diazepam 5 mg q.8 hours p.r.n. (8) Dementia with behavioral disturbance: Code(s): F03.918 - Unspecified dementia, unspecified severity, with other behavioral disturbance Status: Acute Assessment and Plan: pt is calm this morning allowing medical staff to exam her, she denies any pain -continue bedside sitter for medical safety surveillance for 24 hrs every day Initiate fall precautions Subjective Date/time seen: 10/24/23 16:36 Interval history: Interval history: Interval history: This is an 88-year-old female with past medical history significant for generalized anxiety disorder, depression, hyperlipidemia, hypertension, coronary artery disease, breast cancer. patient recently discharged due to fall with left hip fracture status post total hip replacement was sent to rehabilitation where patient had a fall with dislocation of prosthetic hip.? Preliminary workup was significant CT angiogram of the chest showed acute pulmonary embolism.? History has been obtained from who was at bedside. ?10/22/2023: patient in bed awake but does not respond to questions or follow commands.? Appears comfortable.? 10/23/2023:?pt seen this a.m, she is awake, pleasantly ROS, or HPI.? She shakes her head no when asked if she is in any pain, no facial grimace or guarding during exam.
[2023-10-25] VITALS (16 sets, daily range): BP systolic 109–125; BP diastolic 56–68; PULSE 94–120; RESP 20–22; TEMP 36.2–36.4; O2SAT 90–98
[2023-10-25 05:32] LABS: Basophils Percent Auto 0.3 % (0.2-1.2); Eosinophils Absolute Auto 0.1 K/mm3 (0-0.3); Eosinophils Percent Auto 0.8 % (0-4.4); Hematocrit 29.8 % (37.0-47.0); Hemoglobin 9.1 g/dL (12.0-15.0); Immature Granulocyte Absolute 0.13 K/mm3 (0.00-0.031); Immature Granulocyte Percent A 0.9 % (0-0.5); Lymphocytes Absolute Auto 0.85 K/mm3 (0.9-3.2); Mean Corpuscular HGB Conc 30.5 g/dl (32-36); Mean Corpuscular Hemoglobin 28.9 pg (26-34); Mean Corpuscular Volume 94.6 fl (80-100); Mean Platelet Volume 9.8 fl (7.4-10.4); Monocytes Absolute Auto 0.8 K/mm3 (0.1-0.6); Monocytes Percent Auto 5.7 % (2.6-8.5); Neutrophils Absolute Auto 12.1 K/mm3 (1.3-6.7); Neutrophils Percent Auto 86.3 % (45.5-73.1); Platelet Count Result 358 k/mm3 (150-375); Red Blood Count 3.15 M/mm3 (4.2-5.4); Red Cell Distribution Width 20.2 % (11.5-14.5); White Blood Count 14.1 K/mm3 (4.5-10.0)
[2023-10-25 05:43] LABS: Partial Thromboplastin Time 36.7 SECONDS (22.3-36.8)
[2023-10-25 05:45] LABS: Alanine Aminotransferase 32 U/L (6-35); Albumin Level 2.6 g/dL (3.5-5.1); Alkaline Phosphatase 74 U/L (38-126); Anion Gap 8 mmol/L (8-16); Aspartate Amino Transferase 46 U/L (14-36); Bilirubin,Total 1.3 mg/dL (0.2-1.3); Blood Urea Nitrogen 19 mg/dL (7-17); Calcium 7.7 mg/dL (8.4-10.2); Carbon Dioxide 24 mmol/L (22-30); Chloride 107 mmol/L (98-107); Estimated CRCL calculation 37 ml/min; Estimated Glomerular Filt Rate > 60; Glucose 105 mg/dL (65-110); Potassium 3.6 mmol/L (3.4-5.0); Sodium 139 mmol/L (137-145)
--- NOTE | 2023-10-25 09:24 | PM.PNORT ---
Progress Note: A&P Assessment and Plan (1) Dislocation, hip: Qualifiers: Encounter type: initial encounter Laterality: left Qualified Code(s): S73.005A - Unspecified dislocation of left hip, initial encounter Code(s): S73.006A - Unspecified dislocation of unspecified hip, initial encounter Status: Acute Assessment and Plan: POD #13: Left hip hemiarthroplasty. 5 days s/p reduction of hemiarthroplasty dislocation. Knee immobilizer in place. Leg neurovascularly intact but swelling in the left foot noted, pitting edema 1+. Palpable pedal pulse. Knee immobilizer repositioned into correct alignment. Calf is soft, nontender and no erythema. Continue to watch left foot swelling. Possible need for doppler in the future if no improvement with repositioning knee immobilizer. Pain appears to be well controlled. Medical treatment for pulmonary embolism. Continue PT/ OT today. Will most likely be slow progress. (2) Dementia with behavioral disturbance: Code(s): F03.918 - Unspecified dementia, unspecified severity, with other behavioral disturbance Status: Acute (3) Acute pulmonary embolism: Qualifiers: Pulmonary embolism type: other Acute cor pulmonale presence: without acute cor pulmonale Qualified Code(s): I26.99 - Other pulmonary embolism without acute cor pulmonale Code(s): I26.99 - Other pulmonary embolism without acute cor pulmonale Status: Acute (4) Closed subcapital fracture of left femur: Qualifiers: Encounter type: subsequent encounter Fracture healing: with routine healing Qualified Code(s): S72.012D - Unspecified intracapsular fracture of left femur, subsequent encounter for closed fracture with routine healing Code(s): S72.012A - Unspecified intracapsular fracture of left femur, initial encounter for closed fracture Status: Acute Plan Reviewed history, exam, radiographs and current labs with attending MD and covering surgeon, Dr. Rivero, who agrees with current plan as indicated above. No further recommendations from Dr. Rivero at this time. Subjective Subjective Date/Time Seen: 10/25/23 09:24 Post Op day: 13 Principal diagnosis: Left hip fracture /dislocation Interval history: Patient laying in bed. Awakens to voice. Repositioned, wincing in pain with movement. Baseline mentation. Review of Systems Review of Systems: ROS unobtainable: Yes unobtainable due to medical condition ( dementia) Exam Resp: Effort & Inspection: normal respiratory effort Cardio: Rate: regular rate Rhythm: regular rhythm Skin: General skin exam: normal color and wounds noted (incision left hip C/D/I ) Wounds: wounds noted (incision left hip C/D/I ) Extrem: Left lower extremity: hip/thigh Details: tenderness Location: of the hip Location: laterally and anteriorly, swelling (thigh soft ) Location: of the hip (lateral. ), abnormal ROM (limitations with internal/external rotation and flexion/extension due to recent surgical intervention ), deformity ( Externally rotated, guarded against extension.) Location: of the hip and other (incision lateral hip c/d/i. ), knee Details: normal to inspection and normal ROM; no tenderness and no swelling, lower leg (Negative Juan Antonio's Sign ) Details: no edema, ankle (+ankle dorsiflexion/plantarflexion ) Details: normal to inspection, no edema and normal ROM; no tenderness, no swelling and no warmth and foot Details: normal capillary refill, toes with normal ROM, vascular exam Details: dorsalis pedis pulse present and motor-sensory exam light-touch normal in all toes; no tenderness, no ecchymosis and no crepitus Objective Data Vital Signs Vital Signs: Vital Signs - 24 hr 10/24/23 10:00 10/24/23 11:23 10/24/23 12:25 Temperature 36.3 C L Pulse Rate 88 82 94 Respiratory Rate 20 Blood Pressure 105/57 L Pulse Oximetry 97 Oxygen Delivery 10/24/23 12:25 10/24/23 14:00 10/24/23 16:26 Temperature
[2023-10-25] MEDS: ACETAMINOPHEN 325 MG TABLET 650 MG PO (10:07)
--- NOTE | 2023-10-25 10:19 | PC.NURSE ---
Pt refusing care. BAY Waters at bedside. Pt wont take meds, wont allow vitals to be taken.
--- NOTE | 2023-10-25 11:51 | PCPTNOTE ---
The patient treatment was not able to be completed at this time. Nursing staff advised PT, patient unable to participate due to agitation. Will plan to continue treatment per plan of care.
--- NOTE | 2023-10-25 12:41 | PM.PNCARD ---
Progress Note: A&P Assessment and Plan (1) Cardiomyopathy: Qualifiers: Cardiomyopathy type: dilated Qualified Code(s): I42.0 - Dilated cardiomyopathy Code(s): I42.9 - Cardiomyopathy, unspecified Status: Acute Assessment and Plan: Patient appears to be reasonably compensated at this time on room air. Echocardiogram showed severe LV systolic dysfunction EF 25% mild pulmonary hypertension RVSP 41 mm Hg. Monitor volume status closely. May use furosemide on a p.r.n. basis. Palliative care appropriate given comorbidities and advanced age. Primary team will address code status. Patient appears to be fairly euvolemic. She is not currently on diuretic therapy Patient's overall prognosis guarded. Etiology of cardiomyopathy remains unclear. If palliative care, comfort measures desired pursue conservative management. Medical therapy as tolerated, I will add low dose Entresto today. Caution to avoid significant hypotension and fall risk. Change metoprolol tartrate to succinate. Overall, patient very high risk for complications, life-threatening or fatal ventricular arrhythmias due to severe LV dysfunction and decompensated heart failure. May continue telemetry for now. (2) Acute pulmonary embolism: Qualifiers: Acute cor pulmonale presence: without acute cor pulmonale Pulmonary embolism type: other Qualified Code(s): I26.99 - Other pulmonary embolism without acute cor pulmonale Code(s): I26.99 - Other pulmonary embolism without acute cor pulmonale Status: Acute Assessment and Plan: Was on heparin for anticoagulation which has been put on hold due to significant drop in hemoglobin requiring transfusion and concern for bleeding risk. Patient at high risk for additional complications such as respiratory compromise and or . May consider IVC filter placement after palliative care evaluation and if patient's family would like to pursue aggressive medical management. (3) Anemia: Code(s): D64.9 - Anemia, unspecified Status: Acute Assessment and Plan: Hemoglobin stable status post transfusion. Continue to follow H&H closely. Monitor for signs of bleeding. Off anticoagulation. DVT prophylaxis with SCDs. Not a candidate for anticoagulation at this time. (4) Tachycardia: Code(s): R00.0 - Tachycardia, unspecified Status: Acute Assessment and Plan: Elevated heart rate in the setting of PE, anemia, and severe LV systolic dysfunction. This has improved on beta-maya therapy. Continue low-dose metoprolol tartrate with holding parameters. (5) 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: Code(s): Z45.010 - Encounter for checking and testing of cardiac pacemaker pulse generator [battery] Status: Acute Assessment and Plan: Can be managed as an outpatient based on patient's clinical course and after palliative care evaluation. Subjective Date/time seen: 10/25/23 12:41 Interval history: Cardiology follow up for tachycardia, cardiomyopathy Patient is somnolent today, not responding to questions. I did have a long discussion with the patient's son and POA at the bedside regarding goals of care. He wishes to keep patient a full code at this time. Review of Systems Review of Systems: ROS unobtainable: Yes unobtainable due to mental status Exam Const: General: comfortable and no acute distress; No awake Orientation/consciousness: lethargic HENMT: Head: normal to inspection Eyes: General: appearance normal, both eyes and all related structures Pupils: Equal, round and reactive pupils present Neck: Neck: normal visual inspection, supple and no JVD Carotids: normal carotid upstroke Resp: Effort & Inspection: normal respiratory effort Auscultation: not clear to auscultation bilaterally and wheezes Cardio: Rate: tachycardic Rhythm: regular rhythm Heart sounds: S1 normal heart sound present, S2 normal heart sound present and no
--- NOTE | 2023-10-25 14:40 | PM.IMPN ---
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: Code(s): Z45.010 - Encounter for checking and testing of cardiac pacemaker pulse generator [battery] Status: Acute Assessment and Plan: -long discussion with son today, he becomes a little upset when trying to discuss what interventions he may want for his mother at this time he is undecided, he states he he does want a pacemaker to be interrogated, he is unsure of the IVC filter at this time -continue telemetry monitoring -continue monitor BNP -strict I&O (2) Acute pulmonary embolism: Qualifiers: Acute cor pulmonale presence: without acute cor pulmonale Pulmonary embolism type: other Qualified Code(s): I26.99 - Other pulmonary embolism without acute cor pulmonale Code(s): I26.99 - Other pulmonary embolism without acute cor pulmonale Status: Acute Assessment and Plan: -according to son there was a palliative care client account representative that reached out to him and he was very upset he does not want to discuss DNR at this time. -Hgb is 9.1 -trend H&H every 6 hours -continue transfuse PRBC maintain hemoglobin above 8 (3) Dislocation, hip: Qualifiers: Encounter type: initial encounter Laterality: left Qualified Code(s): S73.005A - Unspecified dislocation of left hip, initial encounter Code(s): S73.006A - Unspecified dislocation of unspecified hip, initial encounter Status: Acute Assessment and Plan: Patient is s/p: POD 13, left hip hemiarthroplasty, 5 days POD reduction of hemiarthroplasty dislocation, knee immobilizer in place Orthopedic consult, appreciate recommendation and plan Okay to resume PT/OT WITH Knee immobilizer in place. WBAT. -restart home medication hydrocodone, 1 tab Q 4 hours p.r.n. for pain (4) Tachycardia: Code(s): R00.0 - Tachycardia, unspecified Status: Acute Assessment and Plan: In the setting of PE, patient currently not on anticoagulation, received 2 units PRBC -cardiology consulted appreciate recommendation and plan -continue telemetry monitoring -continue low-dose beta-maya Toprol-XL 12.5 mg daily per Cardiology (5) Leukocytosis: Code(s): D72.829 - Elevated white blood cell count, unspecified Status: Resolved Assessment and Plan: -continue to monitor repeat CBC in the a.m. (6) Low hemoglobin: Code(s): D64.9 - Anemia, unspecified Status: Acute Assessment and Plan: chronic, hgb is stable at 9.1 continue to monitor H&H -transfuse PRBC if hgb <7 (7) Anxiety: Code(s): F41.9 - Anxiety disorder, unspecified Status: Acute Assessment and Plan: -continue home medication Sertraline 100 mg daily p.o. Diazepam 5 mg q.8 hours p.r.n. (8) Dementia with behavioral disturbance: Code(s): F03.918 - Unspecified dementia, unspecified severity, with other behavioral disturbance Status: Acute Assessment and Plan: pt is agitated today with staff she will not allow any interventions today -continue bedside sitter for medical safety surveillance for 24 hrs every day Initiate fall precautions Subjective Date/time seen: 10/25/23 14:40 Interval history: This is an 88-year-old female with past medical history significant for generalized anxiety disorder, depression, hyperlipidemia, hypertension, coronary artery disease, breast cancer. patient recently discharged due to fall with left hip fracture status post total hip replacement was sent to rehabilitation where patient had a fall with dislocation of prosthetic hip.? Preliminary workup was significant CT angiogram of the chest showed acute pulmonary embolism.? History has been obtained from who was at bedside. ?10/22/2023: patient in bed awake but does not respond to questions or follow commands.? Appears comfortable.? 10/23/2023:?pt seen this a.m, she is awake, pleasantly ROS, or HPI.? She shakes her he
[2023-10-26] VITALS (14 sets, daily range): BP systolic 94–132; BP diastolic 51–79; PULSE 80–122; RESP 18–28; TEMP 36.2–37.1; O2SAT 93–100
[2023-10-26 06:58] LABS: Basophils Absolute Auto 0.1 K/mm3 (0.0-0.1); Basophils Percent Auto 0.4 % (0.2-1.2); Eosinophils Absolute Auto 0.2 K/mm3 (0-0.3); Eosinophils Percent Auto 1.1 % (0-4.4); Hematocrit 30.9 % (37.0-47.0); Hemoglobin 9.4 g/dL (12.0-15.0); Immature Granulocyte Absolute 0.11 K/mm3 (0.00-0.031); Immature Granulocyte Percent A 0.8 % (0-0.5); Lymphocytes Absolute Auto 1.09 K/mm3 (0.9-3.2); Lymphocytes Percent Auto 7.7 % (18.3-44.2); Mean Corpuscular HGB Conc 30.4 g/dl (32-36); Mean Corpuscular Volume 95.4 fl (80-100); Mean Platelet Volume 9.7 fl (7.4-10.4); Monocytes Absolute Auto 0.8 K/mm3 (0.1-0.6); Monocytes Percent Auto 5.8 % (2.6-8.5); Neutrophils Percent Auto 84.2 % (45.5-73.1); Nucleated Red Blood Cells Perc 0.1 % (0.0-0.2); Platelet Count Result 392 k/mm3 (150-375); Red Blood Count 3.24 M/mm3 (4.2-5.4); Red Cell Distribution Width 20.7 % (11.5-14.5); White Blood Count 14.2 K/mm3 (4.5-10.0)
[2023-10-26 06:59] LABS: Alanine Aminotransferase 30 U/L (6-35); Albumin Level 2.5 g/dL (3.5-5.1); Alkaline Phosphatase 70 U/L (38-126); Anion Gap 6 mmol/L (8-16); Aspartate Amino Transferase 37 U/L (14-36); Bilirubin,Total 1.1 mg/dL (0.2-1.3); Blood Urea Nitrogen 17 mg/dL (7-17); Calcium 7.9 mg/dL (8.4-10.2); Carbon Dioxide 24 mmol/L (22-30); Chloride 110 mmol/L (98-107); Estimated CRCL calculation 42 ml/min; Estimated Glomerular Filt Rate > 60; Glucose 91 mg/dL (65-110); Potassium 4.1 mmol/L (3.4-5.0); Sodium 140 mmol/L (137-145)
[2023-10-26 07:00] LABS: Partial Thromboplastin Time 32.2 SECONDS (22.3-36.8)
[2023-10-26] MEDS: SACUBITRIL/VALSARTAN 12-13 MG TABLET 1 TAB PO ×2 (08:25→20:26)
[2023-10-26] MEDS: busPIRone HCL 5 MG TABLET 15 MG PO (08:26)
[2023-10-26] MEDS: ACETAMINOPHEN 325 MG TABLET 650 MG PO ×3 (08:26→20:26)
[2023-10-26] MEDS: SERTRALINE HCL 50 MG TABLET 100 MG PO (08:26)
[2023-10-26] MEDS: FAMOTIDINE 20 MG TABLET PO ×2 (08:26→20:26)
[2023-10-26] MEDS: SENNA/DOCUSATE SODIUM TABLET 2 TAB PO ×2 (08:27→20:27)
[2023-10-26] MEDS: METOPROLOL SUCCINATE EXT REL 25 MG TABCR PO (08:27)
[2023-10-26] MEDS: polyethylene glycoL 3350 17 GM POWD.PACK PO (08:28)
--- NOTE | 2023-10-26 10:41 | PM.PNCARD ---
Progress Note: A&P Assessment and Plan (1) Cardiomyopathy: Qualifiers: Cardiomyopathy type: dilated Qualified Code(s): I42.0 - Dilated cardiomyopathy Code(s): I42.9 - Cardiomyopathy, unspecified Status: Acute Assessment and Plan: Patient appears to be reasonably compensated at this time on room air. Echocardiogram showed severe LV systolic dysfunction EF 25%, mild pulmonary hypertension RVSP 41 mm Hg. Monitor volume status closely. May use furosemide on a p.r.n. basis. Palliative care appropriate given comorbidities and advanced age. Primary team will address code status. Patient appears to be fairly euvolemic. She is not currently on diuretic therapy. Patient's overall prognosis guarded. Etiology of cardiomyopathy remains unclear. Medical therapy as tolerated, continue with low dose Toprol and Entresto. She has not received medications for the past two days, so will see how her hemodynamics tolerate these doses. Overall, patient very high risk for complications, life-threatening or fatal ventricular arrhythmias due to severe LV dysfunction and decompensated heart failure. May continue telemetry for now. (2) Acute pulmonary embolism: Qualifiers: Pulmonary embolism type: other Acute cor pulmonale presence: without acute cor pulmonale Qualified Code(s): I26.99 - Other pulmonary embolism without acute cor pulmonale Code(s): I26.99 - Other pulmonary embolism without acute cor pulmonale Status: Acute Assessment and Plan: Was on heparin for anticoagulation which has been put on hold due to significant drop in hemoglobin requiring transfusion and concern for bleeding risk. Patient at high risk for additional complications such as respiratory compromise and or . Resume anticoagulation if Hgb stable and no further concerns for bleeding. If unable to tolerate anticoagulation at all, may consider IVC filter placement after palliative care evaluation and if patient's family would like to pursue aggressive medical management. (3) Anemia: Code(s): D64.9 - Anemia, unspecified Status: Acute Assessment and Plan: As above (4) Tachycardia: Code(s): R00.0 - Tachycardia, unspecified Status: Acute Assessment and Plan: Elevated heart rate in the setting of PE, anemia, and severe LV systolic dysfunction. Continue beta maya therapy. (5) 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: Code(s): Z45.010 - Encounter for checking and testing of cardiac pacemaker pulse generator [battery] Status: Acute Assessment and Plan: Pacemaker interrogation shows that battery longevity is 0.25 to 0.5 years. Therefore, does not need generator change at this time. Follow up as an outpatient. Subjective Date/time seen: 10/26/23 10:41 Interval history: Cardiology follow up for tachycardia, cardiomyopathy Patient is awake, alert, and conversive. Was uncooperative yesterday, but doing better today. States she is feeling okay. Denies chest pain, shortness of breath, palpitations. Exam Const: General: comfortable and no acute distress Other: Elderly female HENMT: Mouth: Yes moist mucous membranes Eyes: General: appearance normal, both eyes and all related structures Sclera: sclerae normal Resp: Effort & Inspection: normal respiratory effort Cardio: Rate: tachycardic Rhythm: regular rhythm Skin: General skin exam: normal color Neuro: Speech: normal speech Psych: Mental Status: mental status grossly normal Affect: normal affect Objective Data Vital Signs Vital Signs: Vital Signs - 24 hr 10/25/23 11:46 10/25/23 12:00 10/25/23 12:00 Temperature 36.3 C L Pulse Rate 102 H 97 97 Respiratory Rate 22 H Blood Pressure 116/56 L Pulse Oximetry 94 Oxygen Delivery Room Air 10/25/23 16:08 10/25/23 14:00 10/25/23 16:00 Temperature 36.2 C L Pulse Rate 118 H 94 113 H Respiratory Rate 20 Blood Pressure 109/6
--- NOTE | 2023-10-26 13:09 | PM.IMPN ---
Progress Note: A&P Assessment and Plan (1) Cardiomyopathy: Qualifiers: Cardiomyopathy type: dilated Qualified Code(s): I42.0 - Dilated cardiomyopathy Code(s): I42.9 - Cardiomyopathy, unspecified Status: Acute Assessment and Plan: Patient last EF was 25 with severe LV dysfunction. Using diuretics p.r.n.. Family has declined consideration of palliative care. Medical therapy as tolerated with low-dose Entresto and beta-maya. Overall very high-risk patient platelet ventricular arrhythmia due to severe LV dysfunction and decompensated heart failure. (2) Acute pulmonary embolism: Qualifiers: Pulmonary embolism type: other Acute cor pulmonale presence: without acute cor pulmonale Qualified Code(s): I26.99 - Other pulmonary embolism without acute cor pulmonale Code(s): I26.99 - Other pulmonary embolism without acute cor pulmonale Status: Acute Assessment and Plan: -according to son there was a palliative care approach which was declined discuss DNR at this time. -Hgb is 9.4 -trend H&H every 6 hours Cannot use anticoagulation due to worsening H&H Patient was on heparin when the hemoglobin dropped and 2 units of blood transfusion were given H&H is stable right now will continue to monitor (3) Dementia with behavioral disturbance: Code(s): F03.918 - Unspecified dementia, unspecified severity, with other behavioral disturbance Status: Acute Assessment and Plan: -continue bedside sitter for medical safety surveillance for 24 hrs every day Initiate fall precautions (4) 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: Code(s): Z45.010 - Encounter for checking and testing of cardiac pacemaker pulse generator [battery] Status: Acute Assessment and Plan: he is unsure of the IVC filter at this time -continue telemetry monitoring -continue monitor BNP -strict I&O (5) Dislocation, hip: Qualifiers: Encounter type: initial encounter Laterality: left Qualified Code(s): S73.005A - Unspecified dislocation of left hip, initial encounter Code(s): S73.006A - Unspecified dislocation of unspecified hip, initial encounter Status: Acute Assessment and Plan: Patient is s/p: POD 13, left hip hemiarthroplasty, 5 days POD reduction of hemiarthroplasty dislocation, knee immobilizer in place Orthopedic consult, appreciate recommendation and plan Okay to resume PT/OT WITH Knee immobilizer in place. WBAT. -restart home medication hydrocodone, 1 tab Q 4 hours p.r.n. for pain (6) Tachycardia: Code(s): R00.0 - Tachycardia, unspecified Status: Acute Assessment and Plan: In the setting of PE, patient currently not on anticoagulation, received 2 units PRBC -cardiology consulted appreciate recommendation and plan -continue low-dose beta-maya Toprol-XL 12.5 mg daily per Cardiology (7) Leukocytosis: Code(s): D72.829 - Elevated white blood cell count, unspecified Status: Resolved Assessment and Plan: -continue to monitor repeat CBC in the a.m. (8) Low hemoglobin: Code(s): D64.9 - Anemia, unspecified Status: Acute Assessment and Plan: chronic, hgb is stable at 9.4 continue to monitor H&H -transfuse PRBC if hgb <7 (9) Anxiety: Code(s): F41.9 - Anxiety disorder, unspecified Status: Acute Assessment and Plan: -continue home medication Sertraline 100 mg daily p.o. Diazepam 5 mg q.8 hours p.r.n. Subjective Date/time seen: 10/26/23 13:09 Interval history: 88-year-old female history of anxiety depression hypertension pre treated for pulmonary embolism and congestive heart failure. Denies any fever chills nausea vomiting diarrhea Review of Systems Review of Systems: All systems reviewed & are unremarkable except as noted in HPI and below Exam Narrative: GENERAL: Well appearing, well-nourished, non-toxic, in no acute distress. H
[2023-10-26] MEDS: TIZANIDINE HCL 2 MG TABLET PO (20:26)
[2023-10-26] MEDS: LOVASTATIN 20 MG TABLET PO (20:27)
[2023-10-27 07:10] LABS: Basophils Percent Auto 0.3 % (0.2-1.2); Eosinophils Absolute Auto 0.2 K/mm3 (0-0.3); Eosinophils Percent Auto 1.9 % (0-4.4); Hematocrit 32.8 % (37.0-47.0); Hemoglobin 9.8 g/dL (12.0-15.0); Immature Granulocyte Percent A 0.8 % (0-0.5); Lymphocytes Absolute Auto 0.94 K/mm3 (0.9-3.2); Lymphocytes Percent Auto 7.7 % (18.3-44.2); Mean Corpuscular HGB Conc 29.9 g/dl (32-36); Mean Corpuscular Hemoglobin 28.9 pg (26-34); Mean Corpuscular Volume 96.8 fl (80-100); Mean Platelet Volume 9.6 fl (7.4-10.4); Monocytes Absolute Auto 0.7 K/mm3 (0.1-0.6); Monocytes Percent Auto 5.8 % (2.6-8.5); Neutrophils Absolute Auto 10.2 K/mm3 (1.3-6.7); Neutrophils Percent Auto 83.5 % (45.5-73.1); Platelet Count Result 368 k/mm3 (150-375); Red Blood Count 3.39 M/mm3 (4.2-5.4); Red Cell Distribution Width 20.6 % (11.5-14.5); White Blood Count 12.2 K/mm3 (4.5-10.0)
[2023-10-27 07:21] LABS: Alanine Aminotransferase 33 U/L (6-35); Albumin Level 2.4 g/dL (3.5-5.1); Alkaline Phosphatase 68 U/L (38-126); Anion Gap 2 mmol/L (8-16); Aspartate Amino Transferase 43 U/L (14-36); Bilirubin,Total 1.1 mg/dL (0.2-1.3); Blood Urea Nitrogen 16 mg/dL (7-17); Calcium 7.7 mg/dL (8.4-10.2); Carbon Dioxide 28 mmol/L (22-30); Chloride 108 mmol/L (98-107); Estimated CRCL calculation 42 ml/min; Estimated Glomerular Filt Rate > 60; Glucose 108 mg/dL (65-110); Potassium 3.8 mmol/L (3.4-5.0); Sodium 138 mmol/L (137-145)
[2023-10-27 07:44] LABS: Anisocytosis 1+ (NORMAL); Hypochromasia 1+ (NORMAL); Platelet Estimate Adequate (Adequate); Poikilocytosis 1+ (NORMAL); Schistocytes Rare (NORMAL)
[2023-10-27 08:00] VITALS: BP 114/80; PULSE 124; RESP 12; TEMP 37.6; O2SAT 99
[2023-10-27] MEDS: busPIRone HCL 5 MG TABLET 15 MG PO (08:57)
[2023-10-27 08:58] VITALS: PULSE 84
[2023-10-27] MEDS: METOPROLOL SUCCINATE EXT REL 25 MG TABCR PO (08:58)
[2023-10-27] MEDS: SERTRALINE HCL 50 MG TABLET 100 MG PO (09:01)
[2023-10-27] MEDS: SACUBITRIL/VALSARTAN 12-13 MG TABLET 1 TAB PO ×2 (09:01→20:13)
[2023-10-27] MEDS: ACETAMINOPHEN 325 MG TABLET 650 MG PO ×4 (09:03→20:13)
[2023-10-27] MEDS: FAMOTIDINE 20 MG TABLET PO ×2 (09:03→20:13)
[2023-10-27] MEDS: SENNA/DOCUSATE SODIUM TABLET 2 TAB PO ×2 (09:05→20:13)
--- NOTE | 2023-10-27 10:42 | PM.PNCARD ---
Progress Note: A&P Assessment and Plan (1) Cardiomyopathy: Qualifiers: Cardiomyopathy type: dilated Qualified Code(s): I42.0 - Dilated cardiomyopathy Code(s): I42.9 - Cardiomyopathy, unspecified Status: Acute Assessment and Plan: Patient appears to be reasonably compensated at this time on room air. Echocardiogram showed severe LV systolic dysfunction EF 25%, mild pulmonary hypertension RVSP 41 mm Hg. Monitor volume status closely. May use furosemide on a p.r.n. basis. Palliative care appropriate given comorbidities and advanced age. Primary team will address code status. Patient appears to be fairly euvolemic. She is not currently on diuretic therapy. Patient's overall prognosis guarded. Etiology of cardiomyopathy remains unclear. Medical therapy as tolerated, continue with low dose Toprol and Entresto. She has not received medications for the past two days, so will see how her hemodynamics tolerate these doses. Overall, patient very high risk for complications, life-threatening or fatal ventricular arrhythmias due to severe LV dysfunction and decompensated heart failure. May continue telemetry for now. (2) Acute pulmonary embolism: Qualifiers: Acute cor pulmonale presence: without acute cor pulmonale Pulmonary embolism type: other Qualified Code(s): I26.99 - Other pulmonary embolism without acute cor pulmonale Code(s): I26.99 - Other pulmonary embolism without acute cor pulmonale Status: Acute Assessment and Plan: Was on heparin for anticoagulation which has been put on hold due to significant drop in hemoglobin requiring transfusion and concern for bleeding risk. Patient at high risk for additional complications such as respiratory compromise and or . Resume anticoagulation if Hgb stable and no further concerns for bleeding. If unable to tolerate anticoagulation at all, may consider IVC filter placement after palliative care evaluation and if patient's family would like to pursue aggressive medical management. (3) Anemia: Qualifiers: Iron deficiency anemia type: chronic blood loss Code(s): D64.9 - Anemia, unspecified Status: Acute Assessment and Plan: As above (4) Tachycardia: Code(s): R00.0 - Tachycardia, unspecified Status: Acute Assessment and Plan: Elevated heart rate in the setting of PE, anemia, and severe LV systolic dysfunction. Continue beta maya therapy. (5) 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: Code(s): Z45.010 - Encounter for checking and testing of cardiac pacemaker pulse generator [battery] Status: Acute Assessment and Plan: Pacemaker interrogation shows that battery longevity is 0.25 to 0.5 years. Therefore, does not need generator change at this time. Follow up as an outpatient. Subjective Date/time seen: 10/27/23 10:43 Interval history: Cardiology follow up for tachycardia, cardiomyopathy Patient is awake, alert, and conversive. Was uncooperative yesterday, but doing better today. States she is feeling okay. Denies chest pain, shortness of breath, palpitations. Date of service 10/27/23: Review of Systems Review of Systems: ROS unobtainable: Yes unobtainable due to mental status Exam Const: General: comfortable, no acute distress, alert and lethargic; No awake Orientation/consciousness: patient oriented x3 and lethargic Other: Elderly female HENMT: Head: normal to inspection Mouth: Yes moist mucous membranes Eyes: General: appearance normal, both eyes and all related structures Sclera: sclerae normal Pupils: Equal, round and reactive pupils present Neck: Neck: normal visual inspection, supple and no JVD Carotids: normal carotid upstroke Resp: Effort & Inspection: normal respiratory effort Auscultation: not clear to auscultation bilaterally and wheezes Cardio: Rate: regular rate and tachycardic Rhythm: regular rhythm Heart sounds: S1 n
[2023-10-27 12:16] VITALS: BP 127/68; PULSE 123; RESP 20; TEMP 36.9; O2SAT 98
--- NOTE | 2023-10-27 13:27 | PCSTNOTE ---
Please refer to the Bedside Swallow Evaluation in the EMR. Please note, silent aspiration cannot be ruled out at bedside.
--- NOTE | 2023-10-27 15:04 | PM.IMPN ---
Progress Note: A&P Assessment and Plan (1) Cardiomyopathy: Qualifiers: Cardiomyopathy type: dilated Qualified Code(s): I42.0 - Dilated cardiomyopathy Code(s): I42.9 - Cardiomyopathy, unspecified Status: Acute Assessment and Plan: Patient last EF was 25 with severe LV dysfunction. Using diuretics p.r.n.. Family has declined consideration of palliative care. Medical therapy as tolerated with low-dose Entresto and beta-maya. Overall very high-risk patient platelet ventricular arrhythmia due to severe LV dysfunction and decompensated heart failure. Son has decided to make the patient DNR DNI I had a long discussion with him (2) Acute pulmonary embolism: Qualifiers: Pulmonary embolism type: other Acute cor pulmonale presence: without acute cor pulmonale Qualified Code(s): I26.99 - Other pulmonary embolism without acute cor pulmonale Code(s): I26.99 - Other pulmonary embolism without acute cor pulmonale Status: Acute Assessment and Plan: -according to son there was a palliative care approach which was declined -Hgb is 9.4 -trend H&H every 6 hours Cannot use anticoagulation due to worsening H&H Patient was on heparin when the hemoglobin dropped and 2 units of blood transfusion were given H&H is stable right now will continue to monitor The patient has refused IVC filter which currently is less of a use as patient has no DVT right now (3) Dementia with behavioral disturbance: Code(s): F03.918 - Unspecified dementia, unspecified severity, with other behavioral disturbance Status: Acute Assessment and Plan: -continue bedside sitter for medical safety surveillance for 24 hrs every day Initiate fall precautions (4) 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: Code(s): Z45.010 - Encounter for checking and testing of cardiac pacemaker pulse generator [battery] Status: Acute Assessment and Plan: -continue telemetry monitoring -continue monitor BNP -strict I&O (5) Dislocation, hip: Qualifiers: Encounter type: initial encounter Laterality: left Qualified Code(s): S73.005A - Unspecified dislocation of left hip, initial encounter Code(s): S73.006A - Unspecified dislocation of unspecified hip, initial encounter Status: Acute Assessment and Plan: Patient is s/p: POD 13, left hip hemiarthroplasty, 5 days POD reduction of hemiarthroplasty dislocation, knee immobilizer in place Orthopedic consult, appreciate recommendation and plan Okay to resume PT/OT WITH Knee immobilizer in place. WBAT. -restart home medication hydrocodone, 1 tab Q 4 hours p.r.n. for pain (6) Tachycardia: Code(s): R00.0 - Tachycardia, unspecified Status: Acute Assessment and Plan: -cardiology consulted appreciate recommendation and plan -continue low-dose beta-maya Toprol-XL 12.5 mg daily per Cardiology (7) Leukocytosis: Code(s): D72.829 - Elevated white blood cell count, unspecified Status: Resolved Assessment and Plan: -continue to monitor repeat CBC in the a.m. (8) Low hemoglobin: Code(s): D64.9 - Anemia, unspecified Status: Acute Assessment and Plan: chronic, hgb is stable at 9.4 continue to monitor H&H -transfuse PRBC if hgb <7 (9) Anxiety: Code(s): F41.9 - Anxiety disorder, unspecified Status: Acute Assessment and Plan: -continue home medication Sertraline 100 mg daily p.o. Diazepam 5 mg q.8 hours p.r.n. Plan [facility] bed for discharge tomorrow. Patient also failed bedside swallowing test will order barium swallow in a.m. Time Spent With Patient Time: 35 minute Subjective Date/time seen: 10/27/23 15:04 Interval history: 88-year-old female history of anxiety depression hypertension pre treated for pulmonary embolism and congestive heart failure. Denies any fever chills nausea vomiting diarrhea Review of Syst
--- NOTE | 2023-10-27 15:28 | PC.NURSE ---
This patient, Tequila Johnson, was transferred to [facility] bed 1 on 10/27/23 via barium swallow study. Left floor at 1455. Personal belongings sent to room. Report given to deirdre. Appropriate documentation sent with patient. Family called and notified.
--- NOTE | 2023-10-27 15:39 | PCSTNOTE ---
Please refer to the Modified Barium Swallow Evaluation in the EMR.
--- NOTE | 2023-10-27 15:56 | PCOTNOTE ---
Attempted to see pt for Occupational Therapy Treatment today. Attempted to assist radiology staff to have pt complete functional transfer from bed to modified barium chair. Pt was very agitated and shoved therapist arm out of the way, when therapist attempted to pull covers off pt. Both radiology techs and RN were present during attempted session. Due to pt's agitation and decrease follow through, therapy session was not completed on this date. Will attempt per poc duration/frequency tomorrow.
[2023-10-27 17:33] VITALS: BP 122/77; PULSE 127; TEMP 36.5; O2SAT 97
[2023-10-27] MEDS: TIZANIDINE HCL 2 MG TABLET PO (20:13)
[2023-10-27] MEDS: LOVASTATIN 20 MG TABLET PO (20:13)
[2023-10-28 06:50] LABS: Basophils Absolute Auto 0.1 K/mm3 (0.0-0.1); Basophils Percent Auto 0.5 % (0.2-1.2); Eosinophils Absolute Auto 0.2 K/mm3 (0-0.3); Eosinophils Percent Auto 1.4 % (0-4.4); Hematocrit 34.2 % (37.0-47.0); Hemoglobin 10.2 g/dL (12.0-15.0); Immature Granulocyte Absolute 0.11 K/mm3 (0.00-0.031); Immature Granulocyte Percent A 0.9 % (0-0.5); Lymphocytes Absolute Auto 1.21 K/mm3 (0.9-3.2); Lymphocytes Percent Auto 9.4 % (18.3-44.2); Mean Corpuscular HGB Conc 29.8 g/dl (32-36); Mean Corpuscular Hemoglobin 29.7 pg (26-34); Mean Corpuscular Volume 99.4 fl (80-100); Mean Platelet Volume 9.7 fl (7.4-10.4); Monocytes Percent Auto 7.5 % (2.6-8.5); Neutrophils Absolute Auto 10.3 K/mm3 (1.3-6.7); Neutrophils Percent Auto 80.3 % (45.5-73.1); Platelet Count Result 317 k/mm3 (150-375); Red Blood Count 3.44 M/mm3 (4.2-5.4); Red Cell Distribution Width 20.8 % (11.5-14.5); White Blood Count 12.8 K/mm3 (4.5-10.0)
[2023-10-28 06:57] LABS: Partial Thromboplastin Time 33.7 SECONDS (22.3-36.8)
[2023-10-28 07:02] LABS: Alanine Aminotransferase 29 U/L (6-35); Albumin Level 2.5 g/dL (3.5-5.1); Alkaline Phosphatase 57 U/L (38-126); Anion Gap 7 mmol/L (8-16); Aspartate Amino Transferase 42 U/L (14-36); Bilirubin,Total 1.2 mg/dL (0.2-1.3); Blood Urea Nitrogen 15 mg/dL (7-17); Calcium 7.8 mg/dL (8.4-10.2); Carbon Dioxide 22 mmol/L (22-30); Chloride 109 mmol/L (98-107); Estimated CRCL calculation 48 ml/min; Estimated Glomerular Filt Rate > 60; Glucose 107 mg/dL (65-110); Potassium 4.9 mmol/L (3.4-5.0); Sodium 138 mmol/L (137-145)
[2023-10-28 08:00] VITALS: PULSE 127; RESP 20; O2SAT 97
[2023-10-28 08:01] LABS: Anisocytosis 1+ (NORMAL); Hypochromasia 1+ (NORMAL); Macrocytosis 1+ (NORMAL); Platelet Estimate Adequate (Adequate); Schistocytes None Seen (NORMAL)
--- NOTE | 2023-10-28 09:15 | PCOTNOTE ---
Patient sleeping, when woke, very agitated and verbalized, leave me alone . Patient's breakfast present, Patient stated I don't want it . Will try back this afternoon.
[2023-10-28] MEDS: ACETAMINOPHEN 325 MG TABLET 650 MG PO (09:24)
[2023-10-28] MEDS: SACUBITRIL/VALSARTAN 12-13 MG TABLET 1 TAB PO (09:24)
[2023-10-28] MEDS: busPIRone HCL 5 MG TABLET 15 MG PO (09:24)
[2023-10-28] MEDS: FAMOTIDINE 20 MG TABLET PO (09:24)
[2023-10-28] MEDS: METOPROLOL SUCCINATE EXT REL 25 MG TABCR PO (09:24)
[2023-10-28] MEDS: polyethylene glycoL 3350 17 GM POWD.PACK PO (09:24)
[2023-10-28] MEDS: SERTRALINE HCL 50 MG TABLET 100 MG PO (09:24)
[2023-10-28] MEDS: SENNA/DOCUSATE SODIUM TABLET 2 TAB PO (09:24)
--- NOTE | 2023-10-28 09:24 | PCPTNOTE ---
Patient refused PT. Patient sleeping but arousable. Informed patient that her breakfast was here and attempted to perform bed mobility. Patient refused stating I don't want eat. Let me sleep.
--- NOTE | 2023-10-28 09:41 | PM.PNORT ---
Progress Note: A&P Assessment and Plan (1) Dislocation, hip: Qualifiers: Encounter type: initial encounter Laterality: left Qualified Code(s): S73.005A - Unspecified dislocation of left hip, initial encounter Code(s): S73.006A - Unspecified dislocation of unspecified hip, initial encounter Status: Acute Assessment and Plan: 2 weeks, 1 day s/p left hip hemiarthroplasty. 7 days s/p reduction of hemiarthroplasty dislocation. Knee immobilizer in place. Leg neurovascularly intact, improvement in left foot swelling. Some ecchymosis noted. No open skin. No evidence of pain with palpation. Pain appears to be well controlled. Limit narcotics. Medical treatment for pulmonary embolism. PT/ OT as tolerated. (2) Dementia with behavioral disturbance: Code(s): F03.918 - Unspecified dementia, unspecified severity, with other behavioral disturbance Status: Acute (3) Acute pulmonary embolism: Qualifiers: Pulmonary embolism type: other Acute cor pulmonale presence: without acute cor pulmonale Qualified Code(s): I26.99 - Other pulmonary embolism without acute cor pulmonale Code(s): I26.99 - Other pulmonary embolism without acute cor pulmonale Status: Acute (4) Closed subcapital fracture of left femur: Qualifiers: Encounter type: subsequent encounter Fracture healing: with routine healing Qualified Code(s): S72.012D - Unspecified intracapsular fracture of left femur, subsequent encounter for closed fracture with routine healing Code(s): S72.012A - Unspecified intracapsular fracture of left femur, initial encounter for closed fracture Status: Acute Plan Reviewed history, exam, radiographs and current labs with attending MD and covering surgeon, Dr. Rivero, who agrees with current plan as indicated above. No further recommendations from Dr. Rivero at this time. Subjective Subjective Date/Time Seen: 10/28/23 09:41 Post Op day: 16 Principal diagnosis: Left hip fracture /dislocation Interval history: Patient laying in bed. Awakens to voice. Baseline mentation. Review of Systems Review of Systems: ROS unobtainable: Yes unobtainable due to medical condition ( dementia) Objective Data Vital Signs Vital Signs: Vital Signs - 24 hr 10/27/23 12:16 10/27/23 17:33 Temperature 36.9 C 36.5 C Pulse Rate 123 H 127 H Respiratory Rate 20 Blood Pressure 127/68 122/77 Pulse Oximetry 98 97 Intake/Output Intake/Output: Intake & Output 10/25/23 10/26/23 10/27/23 10/28/23 23:59 23:59 23:59 23:59 Intake Total 1290 1350 Output Total 400 996 266 9587 Balance -400 690 850 -1050 Meds/Results Medications: Active Medications Generic Name Dose Route Start Last Admin Trade Name Freq PRN Reason Stop Dose Admin Acetaminophen 650 mg 10/24/23 09:00 10/28/23 09:24 Acetaminophen 325 Mg Tablet PO 650 mg QID DORITA Administration Hydrocodone Bitart/Acetaminophen 2 tab 10/21/23 01:30 Hydrocodone/Acetaminophen (*Crx) 7.5-325 Mg Tablet PO Q6H PRN Pain Rated 7-10 Hydrocodone Bitart/Acetaminophen 1 tab 10/21/23 01:30 Hydrocodone/Acetaminophen (*Crx) 5-325 Mg Tablet PO Q4H PRN Pain Rated 4-6 Benzonatate 100 mg 10/27/23 14:10 Benzonatate 100 Mg Capsule PO TID PRN Cough Bisacodyl 10 mg 10/21/23 01:30 Bisacodyl 10 Mg Suppository RECTAL DAILY PRN Constipation Buspirone HCl 15 mg 10/21/23 09:00 10/28/23 09:24 Buspirone Hcl 5 Mg Tablet PO 15 mg DAILY DORITA Administration Diazepam 5 mg 10/21/23 01:30 10/23/23 20:56 Diazepam (*Crx) 5 Mg Tablet PO 5 mg Q8H PRN Administration Muscle Spasm Famotidine 20 mg 10/21/23 09:00 10/28/23 09:24 Famotidine 20 Mg Tablet PO 20 mg Q12HR DORITA Administration Hydroxyzine Pamoate 50 mg 10/21/23 01:30 10/23/23 20:56 Hydroxyzine Pamoate 25 Mg Capsule PO 50 mg Q4H PRN Administration Itching Lo
--- NOTE | 2023-10-28 12:24 | PM.IMPN ---
Progress Note: A&P Assessment and Plan (1) Cardiomyopathy: Qualifiers: Cardiomyopathy type: dilated Qualified Code(s): I42.0 - Dilated cardiomyopathy Code(s): I42.9 - Cardiomyopathy, unspecified Status: Acute Assessment and Plan: Patient last EF was 25 with severe LV dysfunction. Using diuretics p.r.n.. Family has declined consideration of palliative care. Medical therapy as tolerated with low-dose Entresto and beta-maya. Overall very high-risk patient platelet ventricular arrhythmia due to severe LV dysfunction and decompensated heart failure. Son has decided to make the patient DNR DNI I had a long discussion with him Family is opting for home transferred home hospital bed has been already ordered ophthalmic medical technologist's (2) Acute pulmonary embolism: Qualifiers: Pulmonary embolism type: other Acute cor pulmonale presence: without acute cor pulmonale Qualified Code(s): I26.99 - Other pulmonary embolism without acute cor pulmonale Code(s): I26.99 - Other pulmonary embolism without acute cor pulmonale Status: Acute Assessment and Plan: -according to son there was a palliative care approach which was declined -Hgb is 10.2 -trend H&H every 6 hours Cannot use anticoagulation due to worsening H&H Patient was on heparin when the hemoglobin dropped and 2 units of blood transfusion were given H&H is stable right now will continue to monitor The patient has refused IVC filter which currently is less of a use as patient has no DVT right now (3) Dementia with behavioral disturbance: Code(s): F03.918 - Unspecified dementia, unspecified severity, with other behavioral disturbance Status: Acute Assessment and Plan: -continue bedside sitter for medical safety surveillance for 24 hrs every day Initiate fall precautions (4) 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: Code(s): Z45.010 - Encounter for checking and testing of cardiac pacemaker pulse generator [battery] Status: Acute Assessment and Plan: -continue telemetry monitoring -continue monitor BNP -strict I&O (5) Dislocation, hip: Qualifiers: Encounter type: initial encounter Laterality: left Qualified Code(s): S73.005A - Unspecified dislocation of left hip, initial encounter Code(s): S73.006A - Unspecified dislocation of unspecified hip, initial encounter Status: Acute Assessment and Plan: Patient is s/p: POD 13, left hip hemiarthroplasty, 5 days POD reduction of hemiarthroplasty dislocation, knee immobilizer in place Orthopedic consult, appreciate recommendation and plan Okay to resume PT/OT WITH Knee immobilizer in place. WBAT. -restart home medication hydrocodone, 1 tab Q 4 hours p.r.n. for pain (6) Tachycardia: Code(s): R00.0 - Tachycardia, unspecified Status: Acute Assessment and Plan: -cardiology consulted appreciate recommendation and plan -continue low-dose beta-maya Toprol-XL 12.5 mg daily per Cardiology (7) Leukocytosis: Code(s): D72.829 - Elevated white blood cell count, unspecified Status: Resolved Assessment and Plan: -continue to monitor repeat CBC in the a.m. (8) Low hemoglobin: Code(s): D64.9 - Anemia, unspecified Status: Acute Assessment and Plan: chronic, hgb is stable at 9.4 continue to monitor H&H -transfuse PRBC if hgb <7 (9) Anxiety: Code(s): F41.9 - Anxiety disorder, unspecified Status: Acute Assessment and Plan: -continue home medication Sertraline 100 mg daily p.o. Diazepam 5 mg q.8 hours p.r.n. Plan [facility] hospital bed for discharge tomorrow. Patient also failed bedside swallowing test will order barium swallow in a.m. Time Spent With Patient Time: 35 minute Subjective Date/time seen: 10/28/23 12:24 Interval history: 88-year-old female history of anxiety depression hypertension pre treated for pulmonary
--- NOTE | 2023-10-28 14:30 | PM.DS ---
DS: Admitting Diagnosis Discharge Date 10/28/2023 Admitting Diagnosis Pulmonary embolism DS: Discharge Diagnosis Discharge Diagnosis (1) Cardiomyopathy: Qualifiers: Cardiomyopathy type: dilated Qualified Code(s): I42.0 - Dilated cardiomyopathy Code(s): I42.9 - Cardiomyopathy, unspecified Status: Acute (2) Dementia with behavioral disturbance: Code(s): F03.918 - Unspecified dementia, unspecified severity, with other behavioral disturbance Status: Acute (3) Low hemoglobin: Code(s): D64.9 - Anemia, unspecified Status: Acute (4) Acute pulmonary embolism: Qualifiers: Pulmonary embolism type: other Acute cor pulmonale presence: without acute cor pulmonale Qualified Code(s): I26.99 - Other pulmonary embolism without acute cor pulmonale Code(s): I26.99 - Other pulmonary embolism without acute cor pulmonale Status: Acute (5) Anemia: Qualifiers: Iron deficiency anemia type: chronic blood loss Code(s): D64.9 - Anemia, unspecified Status: Acute DS: Summary Hospital Course Hospital Course: ?This is an 88-year-old female with past medical history significant for generalized anxiety disorder, depression, hyperlipidemia, hypertension, coronary artery disease, breast cancer. patient recently discharged due to fall with left hip fracture status post total hip replacement was sent to rehabilitation where patient had a fall with dislocation of prosthetic hip.? Preliminary workup was significant CT angiogram of the chest showed acute pulmonary embolism.? History has been obtained from son who was at bedside. During hospital stay patient was started on heparin for acute PE but did hospital course patient hemoglobin dropped to 5.9. Heparin discontinued patient was offered IVC filter which son refused patient also offer hospice care during hospital stay patient refused and the POA refused. Patient has history of congestive heart failure with EF of 25% patient was optimized on Entresto small dose of beta-maya no anticoagulation was given patient hemoglobin has been stable patient's severe LV dysfunction and decompensated heart failure high risk of ventricular arrhythmia. Son finally agreed for DNR DNI would like to take the [facility] hospital bed has been arranged patient does have history of dementia with behavior disturbance. Patient recently had left hip arthroplasty 5 days ago, and was sent home patient is receiving PT OT with immobilizer in place prognosis poor son fully aware of prognosis Time Spent with Patient Time attestation: Total time spent providing and/or coordinating discharge services: Exam Narrative: GENERAL: Well appearing, no acute distress. HEAD: Normocephalic, atraumatic. NECK: Supple. No adenopathy, no masses. RESPIRATORY: respirations nonlabored. , no rales, wheezing. CARDIOVASCULAR: Regular rate and rhythm without murmurs, . Peripheral pulses 2+ and equal bilaterally. ABDOMINAL: Soft, nontender, nondistended, no hepatosplenomegaly. Normoactive BS. MUSCULOSKELETAL: no Epigastric and no hypochondrial tenderness SKIN: Warm, dry, NEURO: A&O X2. Moves all extremities DS: Data Data Completed and Pending Labs on day of discharge: Labs from last 24 hours 10/28/23 06:31 WBC 12.8 H RBC 3.44 L Hgb 10.2 L Hct 34.2 L MCV 99.4 MCH 29.7 MCHC 29.8 L RDW 20.8 H Plt Count 317 MPV 9.7 Immature Gran % (Auto) 0.9 H Neut % (Auto) 80.3 H Lymph % (Auto) 9.4 L Burke % (Auto) 7.5 Eos % (Auto) 1.4 Baso % (Auto) 0.5 Lymph # (Auto) 1.21 Burke # (Auto) 1.0 H Eos # (Auto) 0.2 Baso # (Auto) 0.1 Abs Immat Gran (auto) 0.11 H Absolute Neuts (auto) 10.3 H Absolute Nucleated RBC 0.0 Nucleated RBC % 0.0 Platelet Estimate Adequate Hypochromasia 1+ Anisocytosis 1+ Macrocytosis 1+ Schistocytes None seen APTT 33.7 Sodium 138 Potassium 4.9 Chloride 109 H Carbon Dioxide 22 Anion Gap 7 L
--- NOTE | 2023-10-28 14:35 | PCOTNOTE ---
Attempted to see Patient for P.M. OT session. Patient's sone present and verbalized he is taking her home this afternoon and please do not treat her. Patient gets increased agitation and he would like her to be calm when trying to get her home. Patient's son declined therapy this date.
--- NOTE | 2023-10-28 16:12 | PC.NURSE ---
Kemi ORTIZ Explained to son, who is pt career development counselor, that pt should void in 8 hours or return to ER. Verbalized understanding. Son states he has purchased everything he needs at home to take care of pt including a ramp and transport chair to move her into his home.
== END 2023-10-28 16:18 | disposition home health service (06) | DRG 559 ==
LOC: ANHED 19:19 → ANHIMU 21:19 → ANH3MEDSUR 10-27 15:24
PROVIDERS: Internal Medicine; Nurse Practitioner; Student in an Organized Health Care Education/Training Program; Admitting Provider Internal Medicine; Emergency Provider Emergency Medicine; PCP Family Medicine; Visit Provider Internal Medicine
DX: T84.021A Dislocation of internal left hip prosthesis, initial encounter (principal); I26.99 Other pulmonary embolism without acute cor pulmonale; I42.9 Cardiomyopathy, unspecified; S72.012D Unspecified intracapsular fracture of left femur, subsequent encounter for closed fracture with routine healing; I11.0 Hypertensive heart disease with heart failure; I50.9 Heart failure, unspecified; I25.10 Atherosclerotic heart disease of native coronary artery without angina pectoris; D64.9 Anemia, unspecified; E78.5 Hyperlipidemia, unspecified; F32.A Depression, unspecified; F03.90 Unspecified dementia, unspecified severity, without behavioral disturbance, psychotic disturbance, mood disturbance, and anxiety; W19.XXXA Unspecified fall, initial encounter; Z79.82 Long term (current) use of aspirin; Z85.3 Personal history of malignant neoplasm of breast; Z95.0 Presence of cardiac pacemaker; R00.0 Tachycardia, unspecified
CPT/HCPCS: 27252; 36415; 36430; 71045; 71275; 73501; 73502; 73552; 74178; 80053; 81003; 82274; 83880; 84484; 85025; 85610; 85730; 86850; 86900; 86901; 86923; 92610; 92611; 93005; 93306; 93970; 96361; 96365; 96375; 97161; 97165; 97530; 97535; 99285; A9270; G0378; J1644; J1741; J1940; J2270; J2704; J7030; J7050; L1830; P9016; Q9967